=== PATIENT | female | born 1970 | race Caucasian/White ===

== ENCOUNTER 2023-03-07 07:01 | Outpatient (OUT) | payer OTHER, SELFPAY ==
[2023-03-07 07:27] LABS: Basophils Percent Auto 0.4 % (0.2-2.0); Eosinophils Absolute Auto 0.1 10^3/uL (0.0-0.7); Eosinophils Percent Auto 1.6 % (0.9-7.0); Hematocrit 48.1 % (36.0-48.0); Hemoglobin 15.8 g/dL (12.0-16.0); Immature Granulocytes Abs Auto 0.03 10^3/uL (0.00-0.03); Immature Granulocytes Pct Auto 0.4 % (0.0-0.5); Lymphocytes Absolute Auto 2.6 10^3/uL (1.2-3.8); Lymphocytes Percent Auto 34.9 % (20.5-60.0); Mean Corpuscular HGB Conc 32.8 g/dL (29.9-35.2); Mean Corpuscular Hemoglobin 29.1 pg (26.7-34.0); Mean Corpuscular Volume 88.6 fL (81.0-99.0); Mean Platelet Volume 9.3 fL (9.5-13.5); Monocytes Absolute Auto 0.4 10^3/uL (0.3-0.8); Monocytes Percent Auto 5.5 % (1.7-12.0); Neutrophils Absolute Auto 4.2 10^3/uL (1.4-6.5); Neutrophils Percent Auto 57.2 % (43.0-75.0); Platelet Count 294 10^3/uL (150-450); Red Blood Count 5.43 10^6/uL (4.20-5.40); Red Cell Distribution Width 13.1 % (11.0-15.0); White Blood Count 7.4 10^3/uL (4.0-11.0)
[2023-03-07 08:08] LABS: Percent Iron Saturation 23.4 %
[2023-03-07 09:13] LABS: Alanine Aminotransferase 38 U/L (14-59); Albumin Globulin Ratio 0.9; Albumin Level 3.6 g/dL (3.4-5.0); Alkaline Phosphatase 102 U/L (46-116); Anion Gap 13.4; Aspartate Amino Transferase 19 U/L (15-37); BUN Creatinine Ratio 13.7; Bilirubin Total 0.3 mg/dL (0.2-1.0); Carbon Dioxide 28.2 mmol/L (21.0-32.0); Chloride 98 mmol/L (98-107); Chol HDL Ratio 7.2; Cholesterol 272 mg/dL (<=200); Estimated GFR (African America 59 (>=60); Estimated GFR (Non-African Ame 48 (>=60); Globulin 4.1 g/dL; Glucose 100 mg/dL (74-106); HDL Cholesterol 38 mg/dL (40-60); Potassium 3.6 mmol/L (3.5-5.1); Sodium 136 mmol/L (136-145); TSH W/ REFLEX FT4 2.096 (0.358-3.740); Total Protein 7.7 g/dL (6.4-8.2); Triglycerides 295 mg/dL (<=150)
== END 2023-03-07 07:02 | disposition home or self-care (01) ==
PROVIDERS: Visit Provider Nurse Practitioner Family
DX: E61.1 Iron deficiency (principal); I10 Essential (primary) hypertension; E89.0 Postprocedural hypothyroidism
CPT/HCPCS: 36415; 80053; 80061; 82728; 83540; 83550; 84443; 85025

== ENCOUNTER 2023-04-23 09:00 | Emergency (ER) | payer OTHER, SELFPAY ==
[2023-04-23] VITALS (10 sets, daily range): BP systolic 150; BP diastolic 86; PULSE 70–100; RESP 15–21; TEMP 36.6; O2SAT 93–96; BMI 43.6
--- OUTSIDE RECORDS SUMMARY | 2023-04-23 09:19 | XMS_ITS | CCD ---
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 Name Role Phone House Sr., Maury Snell Primary Care Provider Himanshu, DO Mendiola Primary Care Provider DO Chris Borden Attending Provider CANTRALL, DR MENDIOLA Admitting Unavailable HOUSE, DR MENDIOLA Attending Unavailable HOUSE, DR MENDIOLA Primary Care Unavailable HOUSE, DR MENDIOLA Consulting Unavailable LE, ABNER Consulting Unavailable PRINTY, DR PATEL Admitting Unavailable PRINTY, DR PATEL Attending Unavailable HOUSE, DR MENDIOLA Primary Care Unavailable PRINTY, DR PATEL Consulting Unavailable HOUSE, DR MENDIOLA Admitting Unavailable HOUSE, DR MENDIOLA Attending Unavailable HOUSE, DR MENDIOLA Primary Care Unavailable HOUSE, DR MENDIOLA Consulting Unavailable HOUSE, DR MENDIOLA Admitting Unavailable HOUSE, DR MENDIOLA Attending Unavailable HOUSE, DR MENDIOLA Primary Care Unavailable HOUSE, DR MENDIOLA Consulting Unavailable House Sr., Maury Josette Primary Care Provider HOUSE SR, MAURY JOSETTE Primary Care Unavai labFATOU Justice Referring Unavailable YOSEF ZHANG Referring Unavailable HOUSE SR, MAURY [facility] Primary Care Unavai lable CHIARA DUTTONY M Referring Unavailable HOUSE SR, MAURY [facility] Primary Care Unavai lable HOUSE SR, MAURY [facility] Primary Care Unavai lable CHIARA DUTTONY M Referring Unavailable CHIARA DUTTONY M Referring Unavailable HOUSE SR, MAURY [facility] Primary Care Unavai labCHIARA JusticeY M Referring Unavailable HOUSE SR, MAURY [facility] Unavai lable HOUSE SR, MAURY [facility] Primary [facility] Unavai lable House Sr., Maury [facility] Prov ider Sylvia Chavez Unavailable [phone] Zoila Grant Unavailable Luisa Fabian Unavailable Sylvia Chavez Attending Unavailable Sylvia Chavez Primary Care Unavailable Sylvia Chavez Admitting Unavailable Allergies Allergy Classification Reported Allergen(s) Allergy Type Date of Onset Reaction(s) Facility Opioid Agonists (1 source) Meperidine Drug Allergy 08-26-2020 Unknown [facility] (17 sources) Meperidine; Translations: [MEPERIDINE] Drug Allergy 08-26-2020 Unknown [facility] (10 sources) Clindamycin; Translations: [clindamycin] Drug Allergy 07-20-2021 Rash, Unknown [facility] (1 source) Meperidine Drug Allergy [facility] (1 source) Meperidine Drug Allergy 07-20-2021 [facility] Medications Current Medications Medication Drug Class(es) Dates Sig (Normalized) Sig (Original) 0.5 ML semaglutide 0.5 MG/ML Auto-Injector [Wegovy] (3 sources) Start: 03-11-2023 Wegovy 0.25 MG/0.5ML 0.25mg once weekly for weeks 1-4 Subcutaneous once weekly for 28 days Aware medication is backordered at this time. Assessing insurance coverage. Mar, Active aspirin 81 mg oral tablet (16 sources) Platelet Aggregation Inhibitor, Nonsteroidal Anti-inflammatory Drug Start: 07-20-2021 take 81 mg by mouth once daily in the morning Aspirin Active 81 MG PO Every morning July 20, 2021 3:44pm take 1 tablet by denise th every twenty-four hours Aspirin 81 MG 1 tablet Orally Once a day Active take 1 tablet by mouth once raquel y aspirin, enteric coated (ASPIRIN, ENTERIC COATED) 81 mg EC tablet Take 81 mg by mouth once daily. 0 Active Comment on above: Take 81 mg by mouth once daily. 12 hr buPROPion hydrochloride 90 mg / naltrexone hydrochloride 8 mg extended release oral tablet (1 source) Opioid Antagonist, Aminoketone Start: 023 take 1 tablet by mouth every twenty-four hours Contrave 8-90 MG 1 tablet in the morning Orally Once a day for 30 days If cost is >$100 out of pocket please do not fill. Mar, Active famotidine 20 mg oral tablet (1 source) Histamine-2 Receptor Antagonist Start: take 20 mg by mouth once daily in the morning Famotidine Active 20 MG PO Every morning July 20, 2021 3:44pm fenofibrate 54 mg oral tablet (5 sources) Peroxisome Proliferator Receptor alpha Agonist Start: 023 take 1 tablet by mouth every twenty-four hours Fenofibrate 54 MG 1 tablet with food Orally Once a day for 90 days Mar, Active hydroCHLOROthiazide 25 mg / lisinopril 20 mg oral tablet (16 sources) Thiazide Diuretic, Angiotensin Converting Enzyme Inhibitor Start: 022 take 1 tablet by mouth once daily in the morning Lisinopril-Hydroch lorothiazide Active 1 TAB PO Every morning July 20, 2021 3:44pm Start: 08-30-2020 lisinopril-hyd roCHLOROthiazide (PRINZIDE, ZESTORETIC) 20-25 mg per tablet 24 hr nicotine 0.875 mg/hr transdermal system (8 sources) Cholinergic Nicotinic Agonist Start: 02-27-2023 Nicotine Step 1 21 MG/24HR 1 patch to skin Transdermal Once a day for 30 days Feb, Active ozempic (0.25 or 0.5 mg/dose) 2 mg/3ml solution pen-injector (1 source) Start: 03-13-2023 Ozempic (0.25 or 0.5 MG/DOSE) 2 MG/3ML 0.25mg once weekly for 4 weeks, then 0.5mg once weekly for 4 weeks Subcutaneous Once Weekly for 28 days Mar, Active perflutren lipid microspheres 1.3 mL in NaCl (PF) 0.9% 10 mL injection (DEFINITY) (1 source) Start: 09-01-2020 End: 12-01-2021 perflutren lipid microspheres 1.3 mL in NaCl (PF) 0.9% 10 mL injection (DEFINITY) 125 ml sodium chloride 9 mg/ml prefilled syringe (1 source) Start: 09-01-2020 End: 12-01-2021 sodium chloride 0.9 % (flush) 10 mL (BD POSIFLUSH) jozef 0.25 mg/0.5ml solution auto-injector (1 source) Start: 03-11-2023 Wegovy 0.25 MG /0.5ML 0.25mg once weekly for weeks 1-4 Subcutaneous once weekly for 28 days Aware medication is backordered at this time. Assessing insurance coverage. Mar, Active Completed/Discontinued Medications Medication Drug Class(es) Dates Sig (Normalized) Sig (Original) norethindrone-eth estradiol 1-5 mg-mcg tablet (8 sources) Estrogen take 1 tablet by denise th every twenty-four hours Norethindrone-Eth Estradiol 1-5 MG-MCG 1 tablet Orally Once a day (Femhrt 04/12) Not-Taking/PRN take 1 tablet by denise th every twenty-four hours Norethindrone-Eth Estradiol 1-5 MG-MCG 1 tablet Orally Once a day (Femt 04/12) Not-Taking omeprazole 20 mg delayed release oral capsule (12 sources) Proton Pump Inhibitor Start: 12-20-2020 take 1 capsule by mouth twice daily before mealtime omeprazole (PRILOSEC) 20 mg capsule Take 1 capsule by mouth twice daily before meals. 60 capsule 0 12/20/2020 Active take 1 capsule by mo uth every twenty-four hours Omeprazole 20 MG 1 capsule Orally Once a day for 90 days Active Comment on above: Take 1 capsule by mo uth twice daily before meals. Problems Active Problems Problem Classification Problem Date Documented Da te Episodic/Chronic Abdominal pain (16 sources) Abdominal pain; Translations: [Unspecified abdominal pain] Episodic Anxiety disorders (5 sources) Anxiety; Translations: [Anxiety disorder, unspecified] Chronic Chronic kidney disease (5 sources) Chronic kidney disease stage 3A ; Translations: [Stage 3a chronic kidney disease] Chronic Coma; stupor; and brain damage (5 sources) Excessive daytime sleepiness - normal night sleep; Translations: [Somnolence] Episodic Complications of surgical procedures or medical care (9 sources) History of subtotal thyroidectomy; Translations: [Postprocedural hypothyroidism] Chronic Deficiency and other anemia (12 sources) Iron deficiency anemia due to blood loss; Translations: [Iron deficiency anemia secondary to blood loss (chronic)] Onset: 08-31-2020 08-31-2020 Chronic Diabetes mellitus without complication (6 sources) Prediabetes; Translations: [Other abnormal glucose] Episodic Disorders of lipid metabolism (7 sources) Mixed hyperlipidemia; Translations: [Mixed hyperlipidemia] Chronic Diverticulosis and diverticulitis (8 sources) Diverticular disease of colon; Translations: [Diverticulosis of large intestine without perforation or abscess without bleeding] Chronic Esophageal disorders (8 sources) Gastro-esophageal reflux disease with esophagitis; Translations: [Gastroesophageal reflux disease with esophagitis without hemorrhage] Chronic Essential hypertension (9 sources) Essential hypertension; Translations: [Essential (primary) hypertension] Chronic Hemorrhoids (8 sources) Hemorrhoids; Translations: [Unspecified hemorrhoids] Episodic Malaise and fatigue (2 sources) Other fatigue; Translations: [Malaise and fatigue] Onset: 02-28-2022 02-14-2023 Episodic Menopausal disorders (4 sources) Postmenopausal bleeding; Translations: [POSTMENOPAUSAL BLEEDING] Onset: 07-27-2022 Chronic Mood disorders (5 sources) Major depressive disorder, single episode, unspecified; Translations: [Depression] Chronic Mood disorders (1 source) Mood disorders; Translations: [DEPRESSION UNSPECIFIED] Onset: 02-28-2022 Nausea and vomiting (16 sources) Nausea and vomiting; Translations: [Nausea with vomiting, unspecified] Episodic Nutritional deficiencies (1 source) Iron deficiency Episodic Other diseases of kidney and ureters (1 source) Disorder of kidney and ureter, unspecified Episodic Other gastrointestinal disorders (8 sources) Constipation; Translations: [Constipation, unspecified] Episodic Other gastrointestinal disorders (8 sources) Diarrhea; Translations: [Diarrhea, unspecified] Episodic Other gastrointestinal disorders (8 sources) Constipation alternates with diarrhea; Translations: [Other specified symptoms and signs involving the digestive system and abdomen] Episodic Other liver diseases (8 sources) Fatty (change of) liver, not elsewhere classified; Translations: [Nonalcoholic fatty liver disease] Chronic Other lower respiratory disease (1 source) Shortness of breath; Translations: [SHORTNESS OF BREATH] Onset: 07-30-2022 Episodic Other nutritional; endocrine; and metabolic disorders (16 sources) Body mass index 40+ - severely obese; Translations: [Morbid (severe) obesity due to excess calories] Chronic Other nutritional; endocrine; and metabolic disorders (1 source) Morbid (severe) obesity due to excess calories Chronic Other nutritional; endocrine; and metabolic disorders (1 source) Body mass index (BMI) 40.0-44.9, adult Chronic Other nutritional; endocrine; and metabolic disorders (6 sources) Obesity; Translations: [Obesity, unspecified] Chronic Other nutritional; endocrine; and metabolic disorders (1 source) Obesity, unspecified Chronic Residual codes; unclassified (4 sources) Sleep apnea; Translations: [Sleep apnea, unspecified] Chronic Residual codes; unclassified (1 source) Sleep apnea, unspecified Chronic Substance-related disorders (10 sources) Nicotine dependence; Translations: [Nicotine dependence, cigarettes, uncomplicated] Chronic Thyroid disorders (5 sources) Thyroid nodule; Translations: [Nontoxic single thyroid nodule] Chronic Unclassified (1 source) COUGH, UNSPECIFIED; Translations: [COUGH, UNSPECIFIED] Onset: 07-30-2022 Unclassified (2 sources) CONTACT W/AND (SUSP) EXPOS COVID-19; Translations: [CONTACT W/AND (SUSP) EXPOS COVID-19] Onset: 08-29-2021 Unclassified (1 source) Dietary counseling and surveillance; Translations: [Dietary counseling and surveillance] Onset: 03-11-2023 Viral infection (1 source) COVID-19; Translations: [COVID-19] Onset: 08-29-2021 Past or Other Problems Problem Classification Problem Date Documented Da te Episodic/Chronic Chronic kidney disease (1 source) Chronic kidney disease Deficiency and other anemia (4 sources) Anemia, unspecified; Translations: [ANEMIA UNSPECIFIED] Onset: 02-23-2022 Episodic Esophageal disorders (2 sources) Esophageal disorders Unclassified (1 source) CONTACT W/AND (SUSP) EXPOS COVID-19; Translations: [CONTACT W/AND (SUSP) EXPOS COVID-19] Onset: 08-24-2021 Results Test Name Value Interpretation Reference Range Facility A1C HEMOGLOBINon 03-11-2023 HbA1c (Bld) [Mass fraction] 6.2 % [facility] Other HbA1c (Bld) [Mass fraction]o n 03-11-2023 A1C HEMOGLOBIN [facility] Other Comprehensive metabolic 2000 panelon 09-27-2022 Albumin [Mass/Vol] 4.5 g/dL Normal 3.9-4.9 [facility] Comment on above: Order Comment: Speci men Type: BLOOD SPECIMEN Ordering Facility: [facility] Address: [address] [place] [id number] Performed By: #### 2 4323-8 #### [facility] CLIA [id number] [address] [place] [address] ALP [Catalytic activity/Vol] 106 U/L Normal 34-123 [facility] Comment on above: Order Comment: Speci men Type: BLOOD SPECIMEN Ordering Facility: [facility] Address: [address] [address] Performed By: #### 2 4323-8 #### [facility] CLIA [id number] [address] [place] [address] ALT [Catalytic activity/Vol] 25 U/L Normal 7-38 [facility] Comment on above: Order Comment: Speci men Type: BLOOD SPECIMEN Ordering Facility: [facility] Address: [address] [place] [address] Performed By: #### 2 4323-8 #### [facility] CLIA [id number] [address] [place] [address] Anion gap [Moles/Vol] 9 mmol/L Normal 9-18 [facility] Comment on above: Order Comment: Speci men Type: BLOOD SPECIMEN Ordering Facility: [facility] Address: [address] [place] [address] Performed By: #### 2 4323-8 #### [facility] CLIA [id number] [address] [place] [address] AST [Catalytic activity/Vol] 19 U/L Normal 13-35 [facility] Comment on above: Order Comment: Speci men Type: BLOOD SPECIMEN Ordering Facility: [facility] Address: [address] [place] [address] Performed By: #### 2 4323-8 #### [facility] CLIA [id number] [address] [place] [address] Bilirubin [Mass/Vol] mg/dL Low 0.2-1.3 [facility] Comment on above: Order Comment: Speci men Type: BLOOD SPECIMEN Ordering Facility: [facility] Address: [address] [address] Performed By: #### 2 4323-8 #### [facility] CLIA [id number] [address] [place] [address] Calcium [Mass/Vol] 9.8 mg/dL Normal 8.5-10.2 [facility] Comment on above: Order Comment: Speci men Type: BLOOD SPECIMEN Ordering Facility: [facility] Address: [address] [address] Performed By: #### 2 4323-8 #### [facility] CLIA [id number] [address] [place] [address] Chloride [Moles/Vol] 99 mmol/L Normal 97-105 [facility] Comment on above: Order Comment: Speci men Type: BLOOD SPECIMEN Ordering Facility: [facility] Address: [address] [address] Performed By: #### 2 4323-8 #### [facility] CLIA [id number] [address] [place] [address] CO2 [Moles/Vol] 28 mmol/L Normal 22-30 [facility] Comment on above: Order Comment: Speci men Type: BLOOD SPECIMEN Ordering Facility: [facility] Address: [address] [address] Performed By: #### 2 4323-8 #### [facility] CLIA [id number] [address] [place] [address] Creatinine [Mass/Vol] 1.09 mg/dL High 0.58-0.96 [facility] Comment on above: Order Comment: Speci men Type: BLOOD SPECIMEN Ordering Facility: [facility] Address: [address] [address] Performed By: #### 2 4323-8 #### [facility] CLIA [id number] [address] [place] [address] ESTIMATED GLOMERULAR FILTRATION RATE 61 mL/min/1.73m??? Normal >=60 [facility] Comment on above: Order Comment: Sanjana schultz Type: BLOOD SPECIMEN Ordering Facility: [facility] Address: [address] [phone] Result Comment: Yeimy mated Glomerular Filtration Rate (eGFR) is calculated using the 2020 CKD-EPI creatinine equation. This equation utilizes serum creatinine, sex, and age as parameters. The creatinine assay has traceable calibration to isotope dilution-mass spectrometry. Refer to KDIGO guidelines for clinical interpretation. In patients with unstable renal function, e.g. those with acute kidney injury, the eGFR may not accurately reflect actual GFR. Performed By: #### 2 4323-8 #### [facility] CLIA [id number] [address] [place] [address] Glucose [Mass/Vol] 128 mg/dL High 74-99 [facility] Comment on above: Order Comment: Sanjana schultz Type: BLOOD SPECIMEN Ordering Facility: [facility] Address: [address] Result Comment: The [place] Diabetes Association (ADA) provides guidance for cutoff values for fasting glucose and random glucose. The ADA defines fasting as no caloric intake for at least 8 hours. Fasting plasma glucose results between 100 to 125 mg/dL indicate increased risk for diabetes (prediabetes). Fasting plasma glucose results greater than or equal to 126 mg/dL meet the criteria for diagnosis of diabetes. In the absence of unequivocal hyperglycemia, results should be confirmed by repeat testing. In a patient with classic symptoms of hyperglycemia or hyperglycemic crisis, random plasma glucose results greater than or equal to 200 mg/dL meet the criteria for diagnosis of diabetes. Reference: Standards of Medical Care in Diabetes 2016, [place] Diabetes Association. Diabetes Care. 2016.39(Suppl 1). Performed By: #### 2 4323-8 #### [facility] CLIA [id number] [address] [place] [address] Potassium [Moles/Vol] 3.9 mmol/L Normal 3.7-5.1 [facility] Comment on above: Order Comment: Sanjana schultz Type: BLOOD SPECIMEN Ordering Facility: [facility] Address: [address] [phone] Performed By: #### 2 4323-8 #### [facility] CLIA [id number] [address] [place] [address] Protein [Mass/Vol] 7.4 g/dL Normal 6.3-8.0 [facility] Comment on above: Order Comment: Speci men Type: BLOOD SPECIMEN Ordering Facility: [facility] Address: [address] [place] [address] Performed By: #### 2 4323-8 #### [facility] CLIA [id number] [address] [place] [address] Sodium [Moles/Vol] 136 mmol/L Normal 136-144 [facility] Comment on above: Order Comment: Speci men Type: BLOOD SPECIMEN Ordering Facility: [facility] Address: [address] [place] [address] Performed By: #### 2 4323-8 #### [facility] CLIA [id number] [address] [place] [address] Urea nitrogen [Mass/Vol] 20 mg/dL Normal 7-21 [facility] Comment on above: Order Comment: Speci men Type: BLOOD SPECIMEN Ordering Facility: [facility] Address: [address] [place] [address] Performed By: #### 2 4323-8 #### [facility] CLIA [id number] [address] [place] [address] [address] MARIA FERNANDA VALLECILLO ([id number]) 1970 F Date Time Provider Department 09/24/22 CASH IVORY During your visit today, we recorded the following information about you: YASIR Gonzales 09/24/2022 4:17 PM Signed Patient appears on the [facility] First Time Treatment List for a non-oncology treatment. No psychosocial assessment is indicated. ROLDAN Gonzales-Lisa Allergies As of Date: 09/24/2022 Noted Allergy Reaction DEMEROL (MEPERIDINE) 08/26/2020 16 - Unknown Date Reviewed: 09/18/2022 Reviewed by: Fatou Dutton PA-C - Fully Assessed Prescriptions as of 09/24/2022 - omeprazole (PRILOSEC) 20 mg capsule Take 1 capsule by mouth twice daily before meals. - aspirin, enteric coated (ASPIRIN, ENTERIC COATED) 81 mg EC tablet Take 81 mg by mouth once daily. - lisinopril-hydroCHLO ROthiazide (PRINZIDE, ZESTORETIC) 20-25 mg per tablet Problem List As Of Date 09/24/2022 Noted Resolved Iron deficiency anemia due to chronic blood los*08/31/2020 Encounter Status:Closed by [facility]ASH [facility] MARIA FERNANDA VALLECILLO ([id number]) 1970 F Date Time Provider Department 09/14/22 SUMMER NUGENT During your visit today, we recorded the following information about you: Summer Nugent RN 09/14/2022 4:24 PM Signed Pt is scheduled for [facility] on Saturday. Dr Zhang had originally recommended Monoferric, but this had to be changed due to pt's insurance. Pt reports that she spoke w/ her insurance company today. Per pt, she was informed that the Monoferric would be approved as long as our office submitted a prior authorization. Spoke w/ Nicole in pharmacy who states that the pt's insurance requires her to have tried and failed other iron formulations before they will approve monoferric. Nicole states that we can submit the prior authorization, but there is still no guarantee that they will approve it. In addition, we will not have determination prior to pt's appointment on Saturday. Pt notified of the above. Informed pt that we could submit the P.A., but we would have to delay Saturday's treatment. Side effects of Venofer reviewed w/ pt. Pt verbalizes understanding and states that she will keep the appointment as is. Does not wish to proceed w/ P.A. at this time. Summer Nugent RN Allergies As of Date: 09/14/2022 Noted Allergy Reaction DEMEROL (MEPERIDINE) 08/26/2020 16 - Unknown Date Reviewed: 09/12/2022 Reviewed by: Fatou Dutton PA-C - Fully Assessed Reason for Visit: Insurance Auth - Iron [Other] Prescriptions as of 09/14/2022 - omeprazole (PRILOSEC) 20 mg capsule Take 1 capsule by mouth twice daily before meals. - aspirin, enteric coated (ASPIRIN, ENTERIC COATED) 81 mg EC tablet Take 81 mg by mouth once daily. - lisinopril-hydroCHLO ROthiazide (PRINZIDE, ZESTORETIC) 20-25 mg per tablet Problem List As Of Date 09/14/2022 Noted Resolved Iron deficiency anemia due to chronic blood los*08/31/2020 Encounter Status:Closed by SUMMER NUGENT on 09/14/22 Normal [facility] CBC W Auto Differential pane l (Bld)on 09-10-2022 Basophils (Bld) [#/Vol] 0.04 10*3/uL Normal <0.11 [facility] Comment on above: Order Comment: Speci men Type: BLOOD SPECIMEN Ordering Facility: [facility] Address: [address] [place] [phone] Performed By: #### 1 4196-0, 27911-4 #### [facility] CLIA [id number] [address] [place] [address] Basophils/100 WBC (Bld) 0.5 % Normal [facility] Comment on above: Order Comment: Speci men Type: BLOOD SPECIMEN Ordering Facility: [facility] Address: [address] [address] Performed By: #### 1 4196-0, 55724-4 #### [facility] CLIA [id number] [address] [place] [address] Differential cell count method Nom (Bld) Auto Normal [facility] Comment on above: Order Comment: Speci men Type: BLOOD SPECIMEN Ordering Facility: [facility] Address: [address] [address] Performed By: #### 1 4196-0, 72673-8 #### [facility] CLIA [id number] [address] [place] [address] Eosinophils (Bld) [#/Vol] 0.20 10*3/uL Normal <0.46 [facility] [facility] Comment on above: Order Comment: Speci men Type: BLOOD SPECIMEN Ordering Facility: [facility] Address: [address] [address] Performed By: #### 1 4196-0, 92940-2 #### [facility] CLIA [id number] [address] [place] [address] 22033 Eosinophils/100 WBC (Bld) 2.7 % Normal [facility] Comment on above: Order Comment: Speci men Type: BLOOD SPECIMEN Ordering Facility: [facility] Address: [address] [address] Performed By: #### 1 4196-0, 37562-7 #### [facility] CLIA [id number] [address] [place] [address] 33148 Erythrocyte distribution width (RBC) [Ratio] 14.6 % Normal 11.5-15.0 [facility] Comment on above: Order Comment: Speci men Type: BLOOD SPECIMEN Ordering Facility: [facility] Address: [address] [address] Performed By: #### 1 4196-0, 66606-3 #### [facility] CLIA [id number] [address] [place] [address] 56231 Hematocrit (Bld) [Volume fraction] 45.8 % Normal 36.0-46.0 [facility] Comment on above: Order Comment: Speci men Type: BLOOD SPECIMEN Ordering Facility: [facility] Address: [address] [place] [address] Performed By: #### 1 4196-0, 84733-9 #### [facility] CLIA [id number] [address] [place] [address] 51114 Hemoglobin (Bld) [Mass/Vol] 15.2 g/dL Normal 11.5-15.5 [facility] Comment on above: Order Comment: Speci men Type: BLOOD SPECIMEN Ordering Facility: [facility] Address: [address] [place] [address] Performed By: #### 1 4196-0, 53624-5 #### [facility] CLIA [id number] [address] [place] [address] 78200 Immature granulocytes (Bld) [#/Vol] 0.03 10*3/uL Normal <0.10 [facility] Comment on above: Order Comment: Speci men Type: BLOOD SPECIMEN Ordering Facility: [facility] Address: [address] [place] [address] Performed By: #### 1 4196-0, 95535-1 #### [facility] CLIA [id number] [address] [place] [address] 66470 Immature granulocytes/100 WBC (Bld) 0.4 % Normal [facility] Comment on above: Order Comment: Speci men Type: BLOOD SPECIMEN Ordering Facility: [facility] Address: [address] [place] [address] Performed By: #### 1 4196-0, 19204-6 #### [facility] CLIA [id number] [address] [place] [address] 68222 Lymphocytes (Bld) [#/Vol] 2.66 10*3/uL Normal 1.00-4.00 [facility] Comment on above: Order Comment: Speci men Type: BLOOD SPECIMEN Ordering Facility: [facility] Address: [address] [address] Performed By: #### 1 4196-0, 32202-4 #### [facility] CLIA [id number] [address] [place] [address] 33568 Lymphocytes/100 WBC (Bld) 35.5 % Normal [facility] Comment on above: Order Comment: Speci men Type: BLOOD SPECIMEN Ordering Facility: [facility] Address: [address] [address] Performed By: #### 1 4196-0, 17814-8 #### [facility] CLIA [id number] [address] [place] [address] 09008 MCH (RBC) [Entitic mass] 28.3 pg Normal 26.0-34.0 [facility] Comment on above: Order Comment: Speci men Type: BLOOD SPECIMEN Ordering Facility: [facility] Address: [address] [address] Performed By: #### 1 4196-0, 00677-1 #### [facility] CLIA [id number] [address] [place] [address] 23773 MCHC (RBC) [Mass/Vol] 33.2 g/dL Normal 30.5-36.0 [facility] Comment on above: Order Comment: Speci men Type: BLOOD SPECIMEN Ordering Facility: [facility] Address: [address] [address] Performed By: #### 1 4196-0, 28349-5 #### [facility] CLIA [id number] [address] [place] [address] 85190 MCV (RBC) [Entitic vol] 85.3 fL Normal 80.0-100.0 [facility] Comment on above: Order Comment: Speci men Type: BLOOD SPECIMEN Ordering Facility: [facility] Address: [address] [address] Performed By: #### 1 4196-0, 10809-7 #### [facility] CLIA [id number] [address] [place] [address] Monocytes (Bld) [#/Vol] 0.40 10*3/uL Normal <0.87 [facility] Comment on above: Order Comment: Speci men Type: BLOOD SPECIMEN Ordering Facility: [facility] Address: [address] [address] Performed By: #### 1 4196-0, 96387-5 #### [facility] CLIA [id number] [address] [place] [address] 38558 Monocytes/100 WBC (Bld) 5.3 % Normal [facility] Comment on above: Order Comment: Speci men Type: BLOOD SPECIMEN Ordering Facility: [facility] Address: [address] [place] [address] Performed By: #### 1 4196-0, 34505-7 #### [facility] CLIA [id number] [address] [place] [address] 14753 Neutrophils (Bld) [#/Vol] 4.17 10*3/uL Normal 1.45-7.50 [facility] Comment on above: Order Comment: Speci men Type: BLOOD SPECIMEN Ordering Facility: [facility] Address: [address] [place] [address] Performed By: #### 1 4196-0, 26456-4 #### [facility] CLIA [id number] [address] [place] [address] 47766 Neutrophils/100 WBC (Bld) 55.6 % Normal [facility] Comment on above: Order Comment: Speci men Type: BLOOD SPECIMEN Ordering Facility: [facility] Address: [address] [place] [address] Performed By: #### 1 4196-0, 30947-8 #### [facility] CLIA [id number] [address] [place] [address] 66739 Nucleated RBC (Bld) [#/Vol] 10*3/uL Normal <0.01 [facility] Comment on above: Order Comment: Speci men Type: BLOOD SPECIMEN Ordering Facility: [facility] Address: [address] [address] Performed By: #### 1 4196-0, 02592-3 #### [facility] CLIA [id number] [address] [place] [address] 34277 Nucleated RBC/100 WBC (Bld) [Ratio] 0.0 /100 WBC Normal [facility] Comment on above: Order Comment: Speci men Type: BLOOD SPECIMEN Ordering Facility: [facility] Address: [address] [address] Performed By: #### 1 4196-0, 65834-1 #### [facility] CLIA [id number] [address] [place] [address] 45699 Platelet mean volume (Bld) [Entitic vol] 9.1 fL Normal 9.0-12.7 [facility] Comment on above: Order Comment: Speci men Type: BLOOD SPECIMEN Ordering Facility: [facility] Address: [address] [address] Performed By: #### 1 4196-0, 33012-6 #### [facility] CLIA [id number] [address] [place] [address] 88503 Platelets (Bld) [#/Vol] 293 10*3/uL Normal 150-400 [facility] Comment on above: Order Comment: Speci men Type: BLOOD SPECIMEN Ordering Facility: [facility] Address: [address] [address] Performed By: #### 1 4196-0, 81248-7 #### [facility] CLIA [id number] [address] [place] [address] 22106 RBC (Bld) [#/Vol] 5.37 10*6/uL High 3.90-5.[address] [facility] Comment on above: Order Comment: Speci men Type: BLOOD SPECIMEN Ordering Facility: [facility] Address: [address] [address] Performed By: #### 1 4196-0, 87491-5 #### [facility] CLIA [id number] [address] [place] [address] 99083 WBC (Bld) [#/Vol] 7.50 10*3/uL Normal 3.70-11.[address] [facility] Comment on above: Order Comment: Speci men Type: BLOOD SPECIMEN Ordering Facility: [facility] Address: [address] [place] [address] Performed By: #### 1 4196-0, 70269-5 #### [facility] CLIA [id number] [address] [place] [address] 20163 Ferritin SerPl-ncon 2022 Ferritin [Mass/Vol] 30.8 ng/mL Normal 14.7-205.[address] [facility] Comment on above: Order Comment: Speci men Type: BLOOD SPECIMEN Ordering Facility: [facility] Address: [address] [place] [address] Performed By: #### 5 0190-8, 2275-4 #### [facility] CLIA [id number] [address] [place] [address] [place] Iron and Iron binding capaci ty panelon 09-10-2022 Iron [Mass/Vol] 40 ug/dL Low 41-186 [facility] Comment on above: Order Comment: Speci men Type: BLOOD SPECIMEN Ordering Facility: [facility] Address: [address] [place], [place] [address] Performed By: #### 5 0190-8, 4 #### [facility] CLIA [id number] [address] [place] [address] [place] Iron binding capacity [Mass/Vol] 328 ug/dL Normal 232-386 [facility] Comment on above: Order Comment: Speci men Type: BLOOD SPECIMEN Ordering Facility: [facility] Address: [address] [place] [address] Performed By: #### 5 0190-8, 2275- #### [facility] CLIA [id number] [address] [place] [address] [place] Iron/TIBC [Molar ratio] 12.2 % Low 15.0-57.0 [facility] Comment on above: Order Comment: Speci men Type: BLOOD SPECIMEN Ordering Facility: [facility] Address: [address] [place] [address] Performed By: #### 5 0190-8, 2276-4 #### [facility] CLIA [id number] [address] [place] [address] [place] Retics #on 09-10-2022 Reticulocytes (Bld) [#/Vol] 0.10241 10*3/uL High 0.018-0.100 [facility] Comment on above: Order Comment: Speci men Type: BLOOD SPECIMEN Ordering Facility: [facility] Address: [address] [place] [address] Performed By: #### 1 4196-0, 04398-3 #### [facility] CLIA [id number] [address] [place] [address] 46590 Reticulocytes (Bld) [#/Vol]o n 09-10-2022 Reticulocytes/100 RBC (Bld) 2.2 % High 0.4-2.0 [facility] Comment on above: Order Comment: Speci men Type: BLOOD SPECIMEN Ordering Facility: [facility] Address: [address] [place] [address] Performed By: #### 1 4196-0, 88752-9 #### [facility] CLIA [id number] [address] [place] [address] 50317 FSHon 07-28-2022 FSH 25.2 mIU/mL Normal [facility] Comment on above: Result Comment: Adul t Female: Follicular phase 3.5 - 12.5 Ovulation phase 4.7 - 21.5 Luteal phase 1.7 - 7.7 Postmenopausal 25.8 - 134.8 Performed By: #### L [facility] #### [facility] [address] [place], [place] [address] Dr. Sarah Philippe XR CHEST 2 Von 07-27-2022 XR CHEST 2 V EXAM: XR CHEST 2 V HISTORY: Cough COMPARISON: None. TECHNIQUE: PA and lateral views of the chest. FINDINGS: The cardiomediastinal silhouette is normal. No focal consolidation is identified. There is no pneumothorax. No pleural effusion is noted. The osseous structures are intact. IMPRESSION: No acute cardiopulmonary process. Electronically authenticated by: ABNER BERNABE Date: 2022-07-27 10:29 Normal [facility] CBC W Auto Differential pane l (Bld)on 03-14-2022 Basophils (Bld) [#/Vol] 0.05 10*3/uL Normal <0.11 [facility] Comment on above: Order Comment: Speci men Type: BLOOD SPECIMEN Ordering Facility: [facility] Address: [address] [place] [address] Performed By: #### 5 7021-8 #### [facility] CLIA [id number] [address] [place] [address] 20703 Basophils/100 WBC (Bld) 0.6 % Normal [facility] Comment on above: Order Comment: Speci men Type: BLOOD SPECIMEN Ordering Facility: [facility] Address: [address] [place] [address] Performed By: #### 5 7021-8 #### [facility] CLIA [id number] [address] [place] [address] 73700 Differential cell count method Nom (Bld) Auto Normal [facility] Comment on above: Order Comment: Speci men Type: BLOOD SPECIMEN Ordering Facility: [facility] Address: [address] [place] [address] Performed By: #### 5 7021-8 #### [facility] CLIA [id number] [address] [place] [address] 97817 Eosinophils (Bld) [#/Vol] 0.22 10*3/uL Normal <0.46 [facility] Comment on above: Order Comment: Speci men Type: BLOOD SPECIMEN Ordering Facility: [facility] Address: [address] [address] Performed By: #### 5 7021-8 #### [facility] CLIA [id number] [address] [place] [address] 39229 Eosinophils/100 WBC (Bld) 2.4 % Normal [facility] Comment on above: Order Comment: Speci men Type: BLOOD SPECIMEN Ordering Facility: [facility] Address: [address] [address] Performed By: #### 5 7021-8 #### [facility] CLIA [id number] [address] [place] [address] 76216 Erythrocyte distribution width (RBC) [Ratio] 14.0 % Normal 11.5-15.0 [facility] Comment on above: Order Comment: Speci men Type: BLOOD SPECIMEN Ordering Facility: [facility] Address: [address] [address] Performed By: #### 5 7021-8 #### [facility] CLIA [id number] [address] [place] [address] 26142 Hematocrit (Bld) [Volume fraction] 43.4 % Normal 36.0-46.0 [facility] Comment on above: Order Comment: Speci men Type: BLOOD SPECIMEN Ordering Facility: [facility] Address: [address] [address] Performed By: #### 5 7021-8 #### [facility] CLIA [id number] [address] [place] [address] 76261 Hemoglobin (Bld) [Mass/Vol] 14.6 g/dL Normal 11.5-15.5 [facility] Comment on above: Order Comment: Speci men Type: BLOOD SPECIMEN Ordering Facility: [facility] Address: [address] [address] Performed By: #### 5 7021-8 #### [facility] CLIA [id number] [address] [place] [address] 85219 Immature granulocytes (Bld) [#/Vol] 0.03 10*3/uL Normal <0.10 [facility] Comment on above: Order Comment: Speci men Type: BLOOD SPECIMEN Ordering Facility: [facility] Address: [address] [place] [address] Performed By: #### 5 7021-8 #### [facility] CLIA [id number] [address] [place] [address] 90147 Immature granulocytes/100 WBC (Bld) 0.3 % Normal [facility] Comment on above: Order Comment: Speci men Type: BLOOD SPECIMEN Ordering Facility: [facility] Address: [address] [address] Performed By: #### 5 7021-8 #### [facility] CLIA [id number] [address] [place] [address] 53139 Lymphocytes (Bld) [#/Vol] 3.15 10*3/uL Normal 1.00-4.00 [facility] Comment on above: Order Comment: Speci men Type: BLOOD SPECIMEN Ordering Facility: [facility] Address: [address] [address] Performed By: #### 5 7021-8 #### [facility] CLIA [id number] [address] [place] [address] 73830 Lymphocytes/100 WBC (Bld) 34.7 % Normal [facility] Comment on above: Order Comment: Speci men Type: BLOOD SPECIMEN Ordering Facility: [facility] Address: [address] [address] Performed By: #### 5 7021-8 #### [facility] CLIA [id number] [address] [place] [address] 35501 MCH (RBC) [Entitic mass] 29.2 pg Normal 26.0-34.0 [facility] Comment on above: Order Comment: Speci men Type: BLOOD SPECIMEN Ordering Facility: [facility] Address: [address] [place] [address] Performed By: #### 5 7021-8 #### [facility] CLIA [id number] [address] [place] [address] 36193 MCHC (RBC) [Mass/Vol] 33.6 g/dL Normal 30.5-36.0 [facility] Comment on above: Order Comment: Speci men Type: BLOOD SPECIMEN Ordering Facility: [facility] Address: [address] [place] [address] Performed By: #### 5 7021-8 #### [facility] CLIA [id number] [address] [place] [address] 08698 MCV (RBC) [Entitic vol] 86.8 fL Normal 80.0-100.0 [facility] Comment on above: Order Comment: Speci men Type: BLOOD SPECIMEN Ordering Facility: [facility] Address: [address] [place] [address] Performed By: #### 5 7021-8 #### [facility] CLIA [id number] [address] [place] [address] 25785 Monocytes (Bld) [#/Vol] 0.48 10*3/uL Normal <0.87 [facility] Comment on above: Order Comment: Speci men Type: BLOOD SPECIMEN Ordering Facility: [facility] Address: [address] [place] [address] Performed By: #### 5 7021-8 #### [facility] CLIA [id number] [address] [place] [address] 90646 Monocytes/100 WBC (Bld) 5.3 % Normal [facility] Comment on above: Order Comment: Speci men Type: BLOOD SPECIMEN Ordering Facility: [facility] Address: [address] [place] [address] Performed By: #### 5 7021-8 #### [facility] CLIA [id number] [address] [place] [address] 81227 Neutrophils (Bld) [#/Vol] 5.14 10*3/uL Normal 1.45-7.50 [facility] Comment on above: Order Comment: Speci men Type: BLOOD SPECIMEN Ordering Facility: [facility] Address: [address] [address] Performed By: #### 5 7021-8 #### [facility] CLIA [id number] [address] [place] [address] 95150 Neutrophils/100 WBC (Bld) 56.7 % Normal [facility] Comment on above: Order Comment: Speci men Type: BLOOD SPECIMEN Ordering Facility: [facility] Address: [address] [address] Performed By: #### 5 7021-8 #### [facility] CLIA [id number] [address] [place] [address] 50285 Nucleated RBC (Bld) [#/Vol] 10*3/uL Normal <0.01 [facility] Comment on above: Order Comment: Speci men Type: BLOOD SPECIMEN Ordering Facility: [facility] Address: [address] [address] Performed By: #### 5 7021-8 #### [facility] CLIA [id number] [address] [place] [address] 33268 Nucleated RBC/100 WBC (Bld) [Ratio] 0.0 /100 WBC Normal [facility] Comment on above: Order Comment: Speci men Type: BLOOD SPECIMEN Ordering Facility: [facility] Address: [address] [address] Performed By: #### 5 7021-8 #### [facility] CLIA [id number] [address] [place] [address] 57280 Platelet mean volume (Bld) [Entitic vol] 9.4 fL Normal 9.0-12.7 [facility] Comment on above: Order Comment: Speci men Type: BLOOD SPECIMEN Ordering Facility: [facility] Address: [address] [address] Performed By: #### 5 7021-8 #### [facility] CLIA [id number] [address] [place] [address] 42024 Platelets (Bld) [#/Vol] 320 10*3/uL Normal 150-400 [facility] Comment on above: Order Comment: Speci men Type: BLOOD SPECIMEN Ordering Facility: [facility] Address: [address] [address] Performed By: #### 5 7021-8 #### [facility] CLIA [id number] [address] [place] [address] 74773 RBC (Bld) [#/Vol] 5.00 10*6/uL Normal 3.90-5.[address] [facility] Comment on above: Order Comment: Speci men Type: BLOOD SPECIMEN Ordering Facility: [facility] Address: [address] [address] Performed By: #### 5 7021-8 #### [facility] CLIA [id number] [address] [place] [address] 81071 WBC (Bld) [#/Vol] 9.07 10*3/uL Normal 3.70-11.[address] [facility] Comment on above: Order Comment: Speci men Type: BLOOD SPECIMEN Ordering Facility: [facility] Address: [address] [address] Performed By: #### 5 7021-8 #### [facility] CLIA [id number] [address] [place] [address] 08201 Comprehensive metabolic 2000 panelon 03-14-2022 Albumin [Mass/Vol] 4.1 g/dL Normal 3.9-4.9 [facility] Comment on above: Order Comment: Speci men Type: BLOOD SPECIMEN Ordering Facility: [facility] Address: [address] Performed By: #### 2 4323-8 #### [facility] CLIA [id number] [address] [place] [address] 24271 ALP [Catalytic activity/Vol] 107 U/L Normal 34-123 [facility] Comment on above: Order Comment: Speci men Type: BLOOD SPECIMEN Ordering Facility: [facility] Address: [address] Performed By: #### 2 4323-8 #### [facility] CLIA [id number] [address] [place] [address] ALT [Catalytic activity/Vol] 32 U/L Normal 7-38 [facility] Comment on above: Order Comment: Speci men Type: BLOOD SPECIMEN Ordering Facility: [facility] Address: [address] [address] Performed By: #### 2 4323-8 #### [facility] CLIA [id number] [address] [place] [address] Anion gap [Moles/Vol] 10 mmol/L Normal 9-18 [facility] Comment on above: Order Comment: Speci men Type: BLOOD SPECIMEN Ordering Facility: [facility] Address: [address] [address] Performed By: #### 2 4323-8 #### [facility] CLIA [id number] [address] [place] [address] AST [Catalytic activity/Vol] 28 U/L Normal 13-35 [facility] Comment on above: Order Comment: Speci men Type: BLOOD SPECIMEN Ordering Facility: [facility] Address: [address] [address] Performed By: #### 2 4323-8 #### [facility] CLIA [id number] [address] [place] [address] Bilirubin [Mass/Vol] mg/dL Low 0.2-1.3 [facility] Comment on above: Order Comment: Speci men Type: BLOOD SPECIMEN Ordering Facility: [facility] Address: [address] Performed By: #### 2 4323-8 #### [facility] CLIA [id number] [address] [place] [address] Calcium [Mass/Vol] 9.3 mg/dL Normal 8.5-10.2 [facility] Comment on above: Order Comment: Speci men Type: BLOOD SPECIMEN Ordering Facility: [facility] Address: [address] [address] Performed By: #### 2 4323-8 #### [facility] CLIA [id number] [address] [place] [address] Chloride [Moles/Vol] 104 mmol/L Normal 97-105 [facility] Comment on above: Order Comment: Speci men Type: BLOOD SPECIMEN Ordering Facility: [facility] Address: [address] [address] Performed By: #### 2 4323-8 #### [facility] CLIA [id number] [address] [place] [address] CO2 [Moles/Vol] 27 mmol/L Normal 22-30 [facility] Comment on above: Order Comment: Speci men Type: BLOOD SPECIMEN Ordering Facility: [facility] Address: [address] [place] [address] Performed By: #### 2 4323-8 #### [facility] CLIA [id number] [address] [place] [address] Creatinine [Mass/Vol] 0.93 mg/dL Normal 0.58-0.96 [facility] Comment on above: Order Comment: Speci men Type: BLOOD SPECIMEN Ordering Facility: [facility] Address: [address] [place] [address] Performed By: #### 2 4323-8 #### [facility] CLIA [id number] [address] [place] [address] ESTIMATED GLOMERULAR FILTRATION RATE 74 mL/min/1.73m??? Normal >=60 [facility] Comment on above: Order Comment: Speci men Type: BLOOD SPECIMEN Ordering Facility: [facility] Address: [address] [place] [address] Result Comment: Yeimy mated Glomerular Filtration Rate (eGFR) is calculated using the 2020 CKD-EPI creatinine equation. This equation utilizes serum creatinine, sex, and age as parameters. The creatinine assay has traceable calibration to isotope dilution-mass spectrometry. Refer to KDIGO guidelines for clinical interpretation. In patients with unstable renal function, e.g. those with acute kidney injury, the eGFR may not accurately reflect actual GFR. Performed By: #### 2 4323-8 #### [facility] CLIA [id number] [address] [place] [address] Glucose [Mass/Vol] 118 mg/dL High 74-99 [facility] Comment on above: Order Comment: Sanjana schultz Type: BLOOD SPECIMEN Ordering Facility: [facility] Address: [address] [address] Result Comment: The [place] Diabetes Association (ADA) provides guidance for cutoff values for fasting glucose and random glucose. The ADA defines fasting as no caloric intake for at least 8 hours. Fasting plasma glucose results between 100 to 125 mg/dL indicate increased risk for diabetes (prediabetes). Fasting plasma glucose results greater than or equal to 126 mg/dL meet the criteria for diagnosis of diabetes. In the absence of unequivocal hyperglycemia, results should be confirmed by repeat testing. In a patient with classic symptoms of hyperglycemia or hyperglycemic crisis, random plasma glucose results greater than or equal to 200 mg/dL meet the criteria for diagnosis of diabetes. Reference: Standards of Medical Care in Diabetes 2016, [place] Diabetes Association. Diabetes Care. 2016.39(Suppl 1). Performed By: #### 2 4323-8 #### [facility] CLIA [id number] [address] [place] [address] Potassium [Moles/Vol] 3.7 mmol/L Normal 3.7-5.1 [facility] Comment on above: Order Comment: Sanjana schultz Type: BLOOD SPECIMEN Ordering Facility: [facility] Address: [address] [id number] Performed By: #### 2 4323-8 #### [facility] CLIA [id number] [address] [place] [address] Protein [Mass/Vol] 6.8 g/dL Normal 6.3-8.0 [facility] Comment on above: Order Comment: Sanjana schultz Type: BLOOD SPECIMEN Ordering Facility: [facility] Address: [address] [address] Performed By: #### 2 4323-8 #### [facility] CLIA [id number] [address] [place] [address] Sodium [Moles/Vol] 141 mmol/L Normal 136-144 [facility] Comment on above: Order Comment: Speci men Type: BLOOD SPECIMEN Ordering Facility: [facility] Address: [address] [address] Performed By: #### 2 4323-8 #### [facility] CLIA [id number] [address] [place] [address] Urea nitrogen [Mass/Vol] 17 mg/dL Normal 7-21 [facility] Comment on above: Order Comment: Speci men Type: BLOOD SPECIMEN Ordering Facility: [facility] Address: [address] [place] [address] Performed By: #### 2 4323-8 #### [facility] CLIA [id number] [address] [place] [address] Ferritin SerPl-mCncon 2021 Ferritin [Mass/Vol] 27.4 ng/mL Normal 14.7-205.[address] [facility] Comment on above: Order Comment: Speci men Type: BLOOD SPECIMEN Ordering Facility: [facility] Address: [address] [place] [address] Performed By: #### 2 276-4 #### [facility] CLIA [id number] [address] [place] [address] [place] [employer] and Iron binding capaci ty panelon 03-14-2022 Iron [Mass/Vol] 56 ug/dL Normal 41-186 [facility] Comment on above: Order Comment: Speci men Type: BLOOD SPECIMEN Ordering Facility: [facility] Address: [address] [place] [address] Performed By: #### 5 0190-8 #### [facility] CLIA [id number] [facility] [place] [address] [place] Iron binding capacity [Mass/Vol] 298 ug/dL Normal 232-386 [facility] Comment on above: Order Comment: Speci men Type: BLOOD SPECIMEN Ordering Facility: [facility] Address: [address] [address] Performed By: #### 5 0190-8 #### [facility] CLIA [id number] [facility] [place] [address] [place] Iron/TIBC [Molar ratio] 18.8 % Normal 15.0-57.0 [facility] Comment on above: Order Comment: Speci men Type: BLOOD SPECIMEN Ordering Facility: [facility] Address: [address] [address] Performed By: #### 5 0190-8 #### [facility] CLIA [id number] [address] [place] [address] [place] CBC AUTO DIFFon 02-23-2022 BASO # 0.1 103/ul Normal 0.0-0.1 [facility] Comment on above: Performed By: #### C BC #### [facility] [address] [address] [address] Sarah Philippe Basophils/100 WBC (Bld) 0.6 % Normal 0.2-2.0 [facility] Comment on above: Performed By: #### C BC #### [facility] [address] [address] [address] Sarah Pihlippe EO # 0.2 103/ul Normal 0.0-0.7 [facility] Comment on above: Performed By: #### C BC #### [facility] [address] [address] [address] Sarah Philippe Eosinophils/100 WBC (Bld) 1.8 % Normal 0.9-7.0 [facility] Comment on above: Performed By: #### C BC #### [facility] [address] [address] [address] Sarah Philippe Erythrocyte distribution width (RBC) [Ratio] 13.9 % Normal 11.0-15.0 [facility] Comment on above: Performed By: #### C BC #### [facility] [address] [address] [address] Sarah Philippe Hematocrit (Bld) [Volume fraction] 45.3 % Normal 36.0-48.0 [facility] Comment on above: Performed By: #### C BC #### [facility] [address] [place] [address] Dr. Sarah Philippe Hemoglobin (Bld) [Mass/Vol] 14.8 g/dL Normal 12.0-16.0 [facility] Comment on above: Performed By: #### C BC #### [facility] [address] [place] [address] Dr. Sarah Philippe IG # 0.02 10e3/ul Normal 0.00-0.03 [facility] Comment on above: Performed By: #### C BC #### [facility] [address] [place] [address] Dr. Sarah Philippe IG % 0.2 % Normal 0.0-0.5 [facility] Comment on above: Performed By: #### C BC #### [facility] [address] [place] [address] Dr. Sarah Philippe LYMPH # 3.0 103/ul Normal 1.2-3.8 [facility] Comment on above: Performed By: #### C BC #### [facility] [address] [place] [address] Dr. Sarah Philippe Lymphocytes/100 WBC (Bld) 35.3 % Normal 20.5-60.0 [facility] Comment on above: Performed By: #### C BC #### [facility] [address] [place] [address] Dr. Sarah Philippe MANUAL DIFF REQ NO Normal [facility] Comment on above: Performed By: #### C BC #### [facility] [address] [place] [address] Dr. Sarah Philippe MCH (RBC) [Entitic mass] 27.5 pg Normal 26.7-34.0 [facility] Comment on above: Performed By: #### C BC #### [facility] [address] [address] [address] Sarah Philippe MCHC (RBC) [Mass/Vol] 32.7 g/dL Normal 29.9-35.2 [facility] Comment on above: Performed By: #### C BC #### [facility] [address] [address] [address] Sarah Philippe MCV (RBC) [Entitic vol] 84.0 fL Normal 81.0-99.0 [facility] Comment on above: Performed By: #### C BC #### [facility] [address] [address] [address] Sarah Philippe MONO # 0.5 103/ul Normal 0.3-0.8 [facility] Comment on above: Performed By: #### C BC #### [facility] [address] [place] [address] Dr. Sarah Philippe Monocytes/100 WBC (Bld) 6.3 % Normal 1.7-12.0 [facility] Comment on above: Performed By: #### C BC #### [facility] [address] [place] [address] Dr. Sarah Philippe NEUT # 4.7 103/ul Normal 1.4-6.5 [facility] Comment on above: Performed By: #### C BC #### [facility] [address] [place] [address] Dr. Sarah Philippe Neutrophils/100 WBC (Bld) 55.8 % Normal 43.0-75.0 [facility] Comment on above: Performed By: #### C BC #### [facility] [address] [address] [address] Sarah Philippe Platelet mean volume (Bld) [Entitic vol] 9.3 fL Critically low 9.5-13.5 [facility] Comment on above: Performed By: #### C BC #### [facility] [address] [place] [address] Dr. Sarah Philippe PLT 323 103/ul Normal 150-450 [facility] Comment on above: Performed By: #### C BC #### [facility] [address] [address] [address] Sarah Philippe RBC 5.39 106/ul Normal 4.20-5.40 [facility] Comment on above: Performed By: #### C BC #### [facility] [address] [place] [address] Dr. Sarah Philippe WBC 8.4 103/ul Normal 4.0-11.0 [facility] Comment on above: Performed By: #### C BC #### [facility] [address] [place] [address] Dr. Sarah Philippe LIPID PROFILEon 02-23-2022 CHOL-HDL RATIO NORM SEE BELOW Normal [facility] Comment on above: Result Comment: 3.3 - 4.4 LOW RISK 4.4 - 7.1 AVERAGE RISK 7.1 - 11.0 MODERATE RISK >11.0 HIGH RISK Performed By: #### C MP, TSH, T4, LIPID #### [facility] [address] [place] [address] Dr. Sarah Philippe Cholesterol [Mass/Vol] 287 mg/dL Critically high <=200 [facility] Comment on above: Performed By: #### C MP, TSH, T4, LIPID #### [facility] [address] [place] [address] Dr. Sarah Philippe Cholesterol in HDL [Mass/Vol] 40 mg/dL Normal 40-60 [facility] Comment on above: Performed By: #### C MP, TSH, T4, LIPID #### [facility] [address] [place] [address] Dr. Sarah Philippe Cholesterol in LDL [Mass/Vol] 183.4 mg/dL Normal [facility] Comment on above: Performed By: #### C MP, TSH, T4, LIPID #### [facility] [address] [place] [address] Dr. Sarah Philippe Cholesterol.total/Cho lesterol in HDL [Mass ratio] 7.2 {ratio} Normal [facility] Comment on above: Performed By: #### C MP, TSH, T4, LIPID #### [facility] [address] [place] [address] Dr. Sarah Philippe HDL NORMAL > or = 60 mg/dl - LOW CARDIOVASCULAR RISK <40 mg/dl - HIGH CARDIOVASCULAR RISK Normal [facility] Comment on above: Performed By: #### C MP, TSH, T4, LIPID #### [facility] [address] [address] [address] Sarah Philippe LDL CALC NORMAL SEE BELOW Normal [facility] Comment on above: Result Comment: <100 mg/dl OPTIMAL 100 - 129 mg/dl NEAR OR ABOVE OPTIMAL 130 - 159 mg/dl BORDERLINE HIGH 160 - 189 mg/dl HIGH >190 mg/dl VERY HIGH Performed By: #### C MP, TSH, T4, LIPID #### [facility] [address] [address] [address] Sarah Philippe Triglyceride [Mass/Vol] 318 mg/dL Critically high <=150 [facility] Comment on above: Performed By: #### C MP, TSH, T4, LIPID #### [facility] [address] [address] [address] Sarah Philippe VLDL CALC 63.6 mg/dL Normal [facility] Comment on above: Performed By: #### C MP, TSH, T4, LIPID #### [facility] [address] [place] [address] Dr. Sarah Philippe PROF 14(COMP METB)on 022 Albumin [Mass/Vol] 3.6 g/dL Normal 3.4-5.0 [facility] Comment on above: Performed By: #### C MP, TSH, T4, LIPID #### [facility] [address] [address] [address] Sarah Philippe Albumin/Globulin [Mass ratio] 0.9 {ratio} Normal [facility] Comment on above: Performed By: #### C MP, TSH, T4, LIPID #### [facility] [address] [place] [address] Dr. Sarah Philippe ALP [Catalytic activity/Vol] 102 U/L Normal 46-116 [facility] Comment on above: Performed By: #### C MP, TSH, T4, LIPID #### [facility] [address] [address] [address] Sarah Philippe ALT [Catalytic activity/Vol] 36 U/L Normal 14-59 [facility] Comment on above: Performed By: #### C MP, TSH, T4, LIPID #### [facility] [address] [address] [address] Sarah Philippe Anion gap [Moles/Vol] 10.6 mmol/L Normal Th [facility] Comment on above: Performed By: #### C MP, TSH, T4, LIPID #### [facility] [address] [address] [address] Sarah Philippe AST [Catalytic activity/Vol] 21 U/L Normal 15-37 [facility] Comment on above: Performed By: #### C MP, TSH, T4, LIPID #### [facility] [address] [place] [address] Dr. Sarah Philippe Bilirubin [Mass/Vol] 0.3 mg/dL Normal 0.2-1.0 [facility] Comment on above: Performed By: #### C MP, TSH, T4, LIPID #### [facility] [address] [place] [address] Dr. Sarah Philippe Calcium [Mass/Vol] 9.2 mg/dL Normal 8.5-10.1 [facility] Comment on above: Performed By: #### C MP, TSH, T4, LIPID #### [facility] [address] [place] [address] Dr. Sarah Philippe Chloride [Moles/Vol] 98 mmol/L Normal 98-107 [facility] Comment on above: Performed By: #### C MP, TSH, T4, LIPID #### [facility] [address] [place] [address] Dr. Sarah Philippe CO2 [Moles/Vol] 27.8 mmol/L Normal 21.0-32.0 [facility] Comment on above: Performed By: #### C MP, TSH, T4, LIPID #### [facility] [address] [place] [address] Dr. Sarah Philippe Creatinine [Mass/Vol] 1.00 mg/dL Normal 0.55-1.02 [facility] Comment on above: Performed By: #### C MP, TSH, T4, LIPID #### [facility] [address] [place] [address] Dr. Sarah Philippe EGFR-AF STATELESS >60 Normal >=60 [facility] Comment on above: Performed By: #### C MP, TSH, T4, LIPID #### [facility] [address] [address] [address] Sarah Philippe EGFR-NON AF STATELESS 58 mL/min/1.73m2 Critically low >=60 [facility] Comment on above: Performed By: #### C MP, TSH, T4, LIPID #### [facility] [address] [place] [address] Dr. Sarah Philippe Globulin (S) [Mass/Vol] 4.1 g/dL Normal [facility] Comment on above: Performed By: #### C MP, TSH, T4, LIPID #### [facility] [address] [place] [address] Dr. Sarah Philippe Glucose [Mass/Vol] 108 mg/dL Critically high 74-106 [facility] Comment on above: Performed By: #### C MP, TSH, T4, LIPID #### [facility] [address] [place] [address] Dr. Sarah Philippe Potassium [Moles/Vol] 3.4 mmol/L Critically low 3.5-5.1 [facility] Comment on above: Performed By: #### C MP, TSH, T4, LIPID #### [facility] [address] [place] [address] Dr. Sarah Philippe Protein [Mass/Vol] 7.7 g/dL Normal 6.4-8.2 [facility] Comment on above: Performed By: #### C MP, TSH, T4, LIPID #### [facility] [address] [place] [address] Dr. Sarah Philippe Sodium [Moles/Vol] 133 mmol/L Critically low 136-145 [facility] Comment on above: Performed By: #### C MP, TSH, T4, LIPID #### [facility] [address] [place] [address] Dr. Sarah Philippe Urea nitrogen [Mass/Vol] 15.0 mg/dL Normal 7.0-18.0 [facility] Comment on above: Performed By: #### C MP, TSH, T4, LIPID #### [facility] [address] [address] [address] Sarah Philippe Urea nitrogen/Creatinine [Mass ratio] 15.0 mg/mg Normal [facility] Comment on above: Performed By: #### C MP, TSH, T4, LIPID #### [facility] [address] [address] [address] Sarah Philippe T4on 02-23-2022 T4 [Mass/Vol] 8.40 ug/dL Normal 4.80-13.90 [facility] Comment on above: Performed By: #### C MP, TSH, T4, LIPID #### [facility] [address] [address] [address] Sarah Philippe TSHon 02-23-2022 TSH 1.815 uIU/mL Normal 0.358-3.740 [facility] Comment on above: Performed By: #### C MP, TSH, T4, LIPID #### [facility] [address] [address] [address] Sarah Philippe Covid-19 PCR ([facility])on 08-06 SARS-CoV-2 (COVID-19) RNA DARÍO+probe Ql (Unsp spec) Detected Critically abnormal NOT DETECTED [facility] Comment on above: Result Comment: This test is not yet approved or cleared by the [place] FDA. When there are no FDA-approved or cleared tests available, and other criteria are met, FDA can make tests available under an emergency access mechanism called an Emergency Use Authorization (EUA). The EUA for this test is supported by the Managed Care Director of Health and Human Service's (HHS's) declaration that circumstances exist to justify the emergency use of in vitro diagnostics for the detection and/or diagnosis of the virus that causes COVID-19. This EUA will remain in effect (meaning this test can be used) for the duration of the COVID-19 declaration justifying emergency of IVDs, unless it is terminated or revoked by FDA (after which the test may no longer be used). Performed By: #### C VDTBH #### [facility] [address] [address] [address] Sarah Philippe Basophils Auto (Bld) [#/Vol] Ordered By: Chris Borden on 07-20-2021 Basophils (Bld) [#/Vol] 0.1 10*3/uL 0.0-0.2 [facility] Basophils/100 WBC Auto (Bld) Ordered By: Chris Borden on 07-20-2021 Basophils/100 WBC (Bld) 0.6 % [facility] Blood hemoglobin measurement (mass/volume)Ordered By: Chris Borden on 07-20-2021 Hemoglobin (Bld) [Mass/Vol] 14.9 g/dL 11.8-15.4 [facility] Blood leukocytes automated c ount (number/volume)Ordered By: Chris Borden on 07-20-2021 WBC (Bld) [#/Vol] 9.6 10*3/uL 4.5-11.0 [facility] COVID-19 Positive/NegativeOr dered By: Chris Borden on 07-20-2021 SARS-CoV-2 (COVID-19) N gene DARÍO+probe Ql (Resp) Negative Negative [facility] Comment on above: Testing for SARS-CoV -2 by RT-PCR This test was developed and its performance characteristics determined by [employer] and validated at the [facility]. This test has not been FDA cleared or approved. This test has been authorized by FDA under an Emergency Use Authorization (EUA). This test has been validated in accordance with the FDA's Guidance Document (Policy for Diagnostics Testing in Laboratories Certified to Perform High Complexity Testing under CLIA prior to Emergency Use Authorization for Coronavirus Disease-2019 during the Public Health Emergency) issued on July 09, 2019. This test is only authorized for the duration of time the declaration that circumstances exist justifying the authorization of the emergency use of in vitro diagnostic tests for detection of SARS-CoV-2 virus and/or diagnosis of COVID-19 infection under section 564(b)(1) of the Act, 21 U.S.C. 360bbb-3(b)(1), unless the authorization is terminated or revoked sooner. Creatinine and Glomerular fi ltration rate.predicted panel (S/P/Bld)Ordered By: Chris Borden on 07-20-2021 Creatinine [Mass/Vol] 0.97 mg/dL 0.44-1.03 [facility] Eosinophils Auto (Bld) [#/Vo l]Ordered By: Chris Borden on 07-20-2021 Eosinophils (Bld) [#/Vol] 0.2 10*3/uL 0.0-0.45 [facility] Eosinophils/100 WBC Auto (Bl d)Ordered By: Chris Borden on 07-20-2021 Eosinophils/100 WBC (Bld) 2.0 % [facility] Erythrocyte distribution wid th Auto (RBC) [Ratio]Ordered By: Chris Borden on 07-20-2021 Erythrocyte distribution width (RBC) [Ratio] 14.1 % 11.9-15.3 [facility] Estimated glomerular filtrat ion rate (GFR) non- AmericanOrdered By: Chris Borden on 07-20-2021 GFR/1.73 sq M.predicted among non-blacks MDRD (S/P/Bld) [Vol rate/Area] 60 mL/Min [facility] Hematocrit Auto (Bld) [Volum e fraction]Ordered By: Chris Borden on 07-20-2021 Hematocrit (Bld) [Volume fraction] 44.0 % 34.0-46.4 [facility] Laboratory - Hematology and Cell countsOrdered By: Chris Borden on 07-20-2021 Nucleated RBC/100 WBC (Bld) [Ratio] 0.3 % 0-0.5 [facility] Lymphocytes Auto (Bld) [#/Vo l]Ordered By: Chris Borden on 07-20-2021 Lymphocytes (Bld) [#/Vol] 3.3 10*3/uL 1.00-4.8 [facility] Lymphocytes/100 WBC Auto (Bl d)Ordered By: Chris Borden on 07-20-2021 Lymphocytes/100 WBC (Bld) 34.3 % [facility] MCH Auto (RBC) [Entitic mass ]Ordered By: Chris Borden on 07-20-2021 MCH (RBC) [Entitic mass] 28.9 pg 24.7-34.3 [facility] MCHC Auto (RBC) [Mass/Vol]Or dered By: Chris Borden on 07-20-2021 MCHC (RBC) [Mass/Vol] 33.8 g/dL 32.0-35.0 [facility] MCV Auto (RBC) [Entitic vol] Ordered By: Chris Borden on 07-20-2021 MCV (RBC) [Entitic vol] 85.6 fL 80-100 [facility] Monocytes Auto (Bld) [#/Vol] Ordered By: Chris Borden on 07-20-2021 Monocytes (Bld) [#/Vol] 0.4 10*3/uL 0.0-0.8 [facility] Monocytes/100 WBC Auto (Bld) Ordered By: Chris Borden on 07-20-2021 Monocytes/100 WBC (Bld) 4.7 % [facility] Neutrophils Auto (Bld) [#/Vo l]Ordered By: Chris Borden on 07-20-2021 Neutrophils (Bld) [#/Vol] 5.6 10*3/uL 1.8-7.7 [facility] Neutrophils/100 WBC Auto (Bl d)Ordered By: Chris Borden on 07-20-2021 Neutrophils/100 WBC (Bld) 58.4 % [facility] No Panel InformationOrdered By: Chris Borden on 07-20-2021 Estimated GFR () > 60 mL/Min [facility] Comment on above: GFR estimated refere nce range: According to KDOQI guidelines, <60 ml/min/1.73m2 is sufficient to diagnose a patient with chronic kidney disease. Pharmacy Creatinine Clearance (Chem N/A [facility] Platelet mean volume Auto (B ld) [Entitic vol]Ordered By: Chris Borden on 07-20-2021 Platelet mean volume (Bld) [Entitic vol] 7.7 fL 6.3-10.7 [facility] Platelets Auto (Bld) [#/Vol] Ordered By: Chris Borden on 07-20-2021 Platelets (Bld) [#/Vol] 365 10*3/uL 150-450 [facility] RBC Auto (Bld) [#/Vol]Ordere d By: Chris Borden on 07-20-2021 RBC (Bld) [#/Vol] 5.14 10*6/uL 3.60-5.00 [facility] Serum or plasma calcium georgie urement (mass/volume)Ordered By: Chris Borden on 07-20-2021 Calcium [Mass/Vol] 9.2 mg/dL 8.2-10.2 [facility] Serum or plasma chloride carolina surement (moles/volume)Ordered By: Chris Borden on 07-20-2021 Chloride [Moles/Vol] 95 mmol/L 95-114 [facility] Serum or plasma glucose georgie urement (mass/volume)Ordered By: Chris Borden on 07-20-2021 Glucose [Mass/Vol] 99 mg/dL 70-100 [facility] Comment on above: ADA recommended refe rence range Random Glucose Reference Range is dependent on time and content of last meal. Glucose of more than 200 mg/dL in a nonstressed, ambulatory subject supports the diagnosis of Diabetes Mellitus. Serum or plasma potassium me asurement (moles/volume)Ordered By: Chris Borden on 07-20-2021 Potassium [Moles/Vol] 3.5 mmol/L 3.5-5.1 [facility] Serum or plasma sodium measu rement (moles/volume)Ordered By: Chris Borden on 07-20-2021 Sodium [Moles/Vol] 134 mmol/L 136-146 [facility] Serum or plasma total carbon dioxide measurement (moles/volume)Ordered By: Chris Borden on 07-20-2021 CO2 [Moles/Vol] 25.9 mmol/L 22.0-30.0 [facility] Serum or plasma urea nitroge n measurement (mass/volume)Ordered By: Chris Borden on 07-20-2021 Urea nitrogen [Mass/Vol] 14 mg/dL 9-23 [facility] Coding Summary.on 03-17-2020 Coding Summary. CODING DATE: 03/17/2020 [facility] STATUS: Home (Routine DC) PAYOR: Commercial Insurance ADMIT DX: REASON FOR VISIT DX: Z20.828 Contact with and (suspected) exposure to other viral communicable diseases FINAL DX: PRINCIPAL: Z20.828 Contact with and (suspected) exposure to other viral communicable diseases SECONDARY: PYMT PROC APC STAT DESCRIPTION DOCTOR NAME DATE NOTE: The code number assigned matches the documented diagnosis and / or procedure in the patient's chart. However, the narrative phrase printed from the coding software may appear abbreviated, or result in slightly different terminology. Coded By: Jessica Poon CphT Date Saved: 03/17/2020 04:51 pm Normal [facility] SARS-CoV-2, NAAon 03-12-2020 SARS-CoV-2 (COVID-19) RNA DARÍO+probe Ql (Resp) Not detected Invalid Interpretation Code Not Detected [facility] Comment on above: Result Comment: This nucleic acid amplification test was developed and its performance characteristics determined by [facility]. Nucleic acid amplification tests include PCR and TMA. This test has not been FDA cleared or approved. This test has been authorized by FDA under an Emergency Use Authorization (EUA). This test is only authorized for the duration of time the declaration that circumstances exist justifying the authorization of the emergency use of in vitro diagnostic tests for detection of SARS-CoV-2 virus and/or diagnosis of COVID-19 infection under section 564(b)(1) of the Act, 21 U.S.C. 360bbb-3(b) (1), unless the authorization is terminated or revoked sooner. When diagnostic testing is negative, the possibility of a false negative result should be considered in the context of a patient's recent exposures and the presence of clinical signs and symptoms consistent with COVID-19. An individual without symptoms of COVID-19 and who is not shedding SARS-CoV-2 virus would expect to have a negative (not detected) result in this assay. Performed at: [facility] [address] [facility], [place] [id number] [facility] Abbe Velasquez Performed By: #### S ARS-CoV-2, DARÍO #### [facility] [address] [place] [address] Physician Orderon 03-09-2020 Physician Order [id number] #[id number]:127 Normal [facility] Coding Summary.on 11-20-2019 Coding Summary. CODING DATE: 11/20/2019 FINAL [facility] STATUS: Home (Routine DC) PAYOR: Commercial Insurance ADMIT DX: REASON FOR VISIT DX: Z01.818 Encounter for other preprocedural examination FINAL DX: PRINCIPAL: Z01.818 Encounter for other preprocedural examination SECONDARY: Z20.828 Contact with and (suspected) exposure to other viral communicable diseases PYMT PROC APC STAT DESCRIPTION DOCTOR NAME DATE NOTE: The code number assigned matches the documented diagnosis and / or procedure in the patient's chart. However, the narrative phrase printed from the coding software may appear abbreviated, or result in slightly different terminology. Coded By: Britney Pabon Date Saved: 11/20/2019 07:41 am Normal [facility] SARS-CoV-2, NAAon 11-05-2019 SARS-CoV-2 (COVID-19) RNA DARÍO+probe Ql (Resp) Not detected Invalid Interpretation Code Not Detected [facility] Comment on above: Result Comment: This test was developed and its performance characteristics determined by [facility]. This test has not been FDA cleared or approved. This test has been authorized by FDA under an Emergency Use Authorization (EUA). This test is only authorized for the duration of time the declaration that circumstances exist justifying the authorization of the emergency use of in vitro diagnostic tests for detection of SARS-CoV-2 virus and/or diagnosis of COVID-19 infection under section 564(b)(1) of the Act, 21 U.S.C. 360bbb-3(b)(1), unless the authorization is terminated or revoked sooner. When diagnostic testing is negative, the possibility of a false negative result should be considered in the context of a patient's recent exposures and the presence of clinical signs and symptoms consistent with COVID-19. An individual without symptoms of COVID-19 and who is not shedding SARS-CoV-2 virus would expect to have a negative (not detected) result in this assay. Performed at: [facility] [address] [facility], [place] [id number] MD Arvind Zuniga Performed By: #### S ARS-CoV-2, DARÍO #### [facility] [address] [place] [address] Physician Orderon 10-30-2019 Physician Order [id number]:127 Normal [facility] Vital Signs Date Time Vital Sign Value Performing Clinician Facility 03-11-2023 10:00-0500 Body height 166.37 cm Luisa Missler Other [facility] Other 03-11-2023 10:00-0500 Body mass index (BMI) [Ratio] 44.5 kg/m2 Luisa Missler Other [facility] Other 03-11-2023 10:00-0500 Body weight 123.2 kg Luisa Missler Other [facility] Other 03-11-2023 10:00-0500 Diastolic blood pressure 90 mm[Hg] Luisa Missler Other [facility] Other 03-11-2023 10:00-0500 Respiratory rate 18 /min Luisa Missler Other [facility] Other 03-11-2023 10:00-0500 SaO2% (BldA) [Mass fraction] 94 % Luisa Missler Other [facility] Other 03-11-2023 10:00-0500 Systolic blood pressure 114 mm[Hg] Luisa Missler Other [facility] Other 02-27-2023 08:00-0500 Body height 167.64 cm Sylvia Chavez Other [facility] Other 02-27-2023 08:00-0500 Body mass index (BMI) [Ratio] 44.16 kg/m2 Sylvia Shearafat Other [facility] Other 02-27-2023 08:00-0500 Body weight 124.1 kg Sylvia Wallcyrus Other [facility] Other 02-27-2023 08:00-0500 Diastolic blood pressure 86 mm[Hg] Sylvia Kathy Other [facility] Other 02-27-2023 08:00-0500 Respiratory rate 18 /min Sylvia Kathy Other [facility] Other 02-27-2023 08:00-0500 SaO2% (BldA) [Mass fraction] 97 % Sylvia Shearafat Other [facility] Other 02-27-2023 08:00-0500 Systolic blood pressure 124 mm[Hg] Sylvia Shearafat Other [facility] Other 10-11-2022 11:22-0400 Body temperature 98.01 [degF] Chair Ellen Work Phone: [facility] 10-11-2022 11:22-0400 Diastolic blood pressure 76 mm[Hg] Chair Canóvanas Work Phone: [facility] 10-11-2022 11:22-0400 Heart rate 78 /min Chair Canóvanas Work Phone: [facility] 10-11-2022 11:22-0400 Respiratory rate 16 /min Chair Ellen Work Phone: [facility] 10-11-2022 11:22-0400 SaO2% (BldA) [Mass fraction] 96 % Chair Canóvanas Work Phone: [facility] 10-11-2022 11:22-0400 Systolic blood pressure 109 mm[Hg] Chair Canóvanas Work Phone: [facility] 07-20-2021 15:02-0400 Body height 167.64 cm DO Maury House Work Phone: [facility] 07-20-2021 15:02-0400 Body mass index (BMI) [Ratio] 42.2 kg/m2 DO Maury House Work Phone: [facility] 07-20-2021 15:02-0400 Body temperature 98.4 [degF] DO Maury House Work Phone: [facility] 07-20-2021 15:02-0400 Body weight 118.7 kg DO Maury House Work Phone: [facility] 07-20-2021 15:02-0400 Diastolic blood pressure 90 mm[Hg] DO Maury House Work Phone: [facility] 07-20-2021 15:02-0400 Heart rate 97 /min DO Maury House Work Phone: [facility] 07-20-2021 15:02-0400 Respiratory rate 18 /min DO Maury House Work Phone: [facility] 07-20-2021 15:02-0400 SaO2% (BldA) [Mass fraction] 95 % DO Maury House Work Phone: [facility] 07-20-2021 15:02-0400 Systolic blood pressure 131 mm[Hg] DO Maury House Work Phone: [facility] Encounters Encounter Date Encounter Type Care Provider Facility Start: 03-11-2023 Encounter by genaro Chavez [facility] Start: 03-11-2023 Nutrition therapy Luisa Fabian [facility] Start: 03-11-2023 Telephone encounter Luisa Fabian [facility] Start: 03-11-2023 End: 03-11-2023 ambulatory Sylvia Rohrbacher [facility] Other Start: 03-07-2023 End: 03-07-2023 ambulatory Sylvia Chavez Other [facility] Other Start: 03-07-2023 Encounter by genrao Chavez [facility] Start: 03-07-2023 Telephone encounter Sylvia islas [facility] Start: 03-04-2023 End: 03-04-2023 ambulatory Zoila Grant Other [facility] Other Start: 03-04-2023 Telephone encounter Zoila Grant [facility] Start: 02-27-2023 End: 02-27-2023 ambulatory Sylvia Chavez Other [facility] Other Start: 02-27-2023 Office outpatient ne w 30 minutes Sylvia Chavez [facility] Start: 02-14-2023 ambulatory Yosef Zhang MD Work Phone: Hematology/Oncology Comment on above: Tests Start: 10-11-2022 End: 10-11-2022 ambulatory Chair 13 Ellen Work Phone: Hematology/Oncology Comment on above: Iron deficiency anem ia due to chronic blood loss (Primary Dx) Start: 10-04-2022 End: 10-04-2022 ambulatory FATOU DUTTON Facility:[facility] Start: 10-04-2022 End: 10-04-2022 ambulatory Chair 14 Ellen Work Phone: Hematology/Oncology Comment on above: Iron deficiency anem ia due to chronic blood loss (Primary Dx) Start: 09-27-2022 End: 09-28-2022 ambulatory FATOU DUTTON Facility:[facility] Start: 09-24-2022 Social Work Cash SALGADOW Hematolo gy/Oncology Start: 09-17-2022 End: 09-17-2022 ambulatory MAURY WALLACE SR Facility:[facility] Start: 09-11-2022 ambulatory Yosef Zhang MD Work Phone: Hematology/Oncology Comment on above: Question regarding C BC + DIFF Start: 09-10-2022 End: 09-10-2022 ambulatory YOSEF ZHANG Facility:[facility] Start: 09-06-2022 ambulatory Yosef Zhang MD Work Phone: Hematology/Oncology Comment on above: Lab Start: 07-27-2022 End: 07-28-[address] MAURY WALLACE Facility:[facility] Start: 03-14-2022 End: 03-14-2022 ambulatory FATOU Sepulveda WINSTON Facility:[facility] Start: 02-23-2022 End: 02-24-[address] MAURY WALLACE Facility:[facility] Start: 08-24-2021 End: 08-24-[address] MAURY WALLACE Facility:[facility] Start: 07-24-2021 End: 07-24-2021 Departed Referred DO Maury Himanshu Work Phone: [facility] Start: 07-20-2021 End: 07-20-2021 Patient encounter procedure DO Maury Wallace Work Phone: [facility] Start: 06-16-2021 Telephone encounter Marquise deras DO Work Phone: Cardiology Comment on above: Appointment Start: 08-26-2020 End: 08-26-2020 Chart abstracting Yosef Zhang MD Work Phone: Hematology/Oncology Procedures Date Procedure Procedure Detail Performing Clinician Start: 01-17-2021 Adult depression scr eening assessment Marquise Freire DO Work Phone: Start: 12-20-2020 Colonoscopy Marquise deras DO Work Phone: Start: 09-06-2020 Lipid 1996 panel - S tam or Plasma Yosef Zhang MD Work Phone: Plan of Treatment Date Care Activity Detail Author Start: 09-27-2025 DIABETES SCREEN DIABETES SCREEN [facility] Start: 09-27-2025 Diabetes Screening Diabetes Screenin g [facility] Start: 09-06-2025 Lipid 1996 panel - S tam or Plasma Lipid Screening [facility] Start: 09-06-2025 LIPID SCREEN LIPID SCREEN [facility] Start: 03-14-2025 DIABETES SCREEN DIABETES SCREEN [facility] Start: 01-18-2024 DIABETES SCREEN DIABETES SCREEN [facility] Start: 02-14-2023 End: 05-16-2023 CBC W Auto Differential panel - Blood CBC + DIFF Lab Routine Iron deficiency anemia due to chronic blood loss Malaise and fatigue Expected: 02/14/2023, Expires: 05/16/2023 [facility] Work Phone: Comment on above: Expected: 02/14/2023 , Expires: 05/16/2023 Start: 02-14-2023 End: 05-16-2023 Cobalamin (Vitamin B12) [Mass/volume] in Serum or Plasma VITAMIN B12 BLOOD Lab Routine Iron deficiency anemia due to chronic blood loss Malaise and fatigue Expected: 02/14/2023, Expires: 05/16/2023 [facility] Work Phone: Comment on above: Expected: 02/14/2023 , Expires: 05/16/2023 Start: 02-14-2023 End: 05-16-2023 Comprehensive metabolic 2000 panel - Serum or Plasma COMP METABOLIC PANEL Lab Routine Iron deficiency anemia due to chronic blood loss Malaise and fatigue Expected: 02/14/2023, Expires: 05/16/2023 [facility] Work Phone: Comment on above: Expected: 02/14/2023 , Expires: 05/16/2023 Start: 02-14-2023 End: 05-16-2023 Ferritin [Mass/volume] in Serum or Plasma FERRITIN BLD Lab Routine Iron deficiency anemia due to chronic blood loss Malaise and fatigue Expected: 02/14/2023, Expires: 05/16/2023 [facility] Work Phone: Comment on above: Expected: 02/14/2023 , Expires: 05/16/2023 Start: 02-14-2023 End: 05-16-2023 Folate [Mass/volume] in Serum or Plasma FOLATE SERUM Lab Routine Iron deficiency anemia due to chronic blood loss Malaise and fatigue Expected: 02/14/2023, Expires: 05/16/2023 [facility] Work Phone: Comment on above: Expected: 02/14/2023 , Expires: 05/16/2023 Start: 02-14-2023 End: 05-16-2023 Iron and Iron binding capacity panel - Serum or Plasma IRON + TIBC Lab Routine Iron deficiency anemia due to chronic blood loss Malaise and fatigue Expected: 02/14/2023, Expires: 05/16/2023 [facility] Work Phone: Comment on above: Expected: 02/14/2023 , Expires: 05/16/2023 Start: 02-14-2023 End: 05-16-2023 Thyrotropin [Units/volume] in Serum or Plasma TSH BLD Lab Routine Iron deficiency anemia due to chronic blood loss Malaise and fatigue Expected: 02/14/2023, Expires: 05/16/2023 [facility] Work Phone: Comment on above: Expected: 02/14/2023 , Expires: 05/16/2023 Start: 12-07-2022 Colonoscopy COLONOSCOPY [facility] Start: 12-07-2022 COLORECTAL CANCER SCREENING COLORECTAL CANCER SCREENING [facility] Start: 12-07-2022 Covid-19 Vaccine () Covid-19 Vaccine () [facility] Start: 12-07-2022 Influenza vaccination C [facility] Start: 09-12-2022 End: 11-12-2022 Comprehensive metabolic 2000 panel - Serum or Plasma COMP METABOLIC PANEL Lab Routine Iron deficiency anemia due to chronic blood loss Expected: 09/12/2022, Expires: 11/12/2022 [facility] Work Phone: Comment on above: Expected: 09/12/2022 , Expires: 11/12/2022 Start: 09-07-2022 End: 11-07-2022 CBC W Auto Differential panel - Blood CBC + DIFF Lab Routine Iron deficiency anemia due to chronic blood loss Expected: 09/07/2022, Expires: 11/07/2022 [facility] Work Phone: Comment on above: Expected: 09/07/2022 , Expires: 11/07/2022 Start: 09-07-2022 End: 09-08-2023 Ferritin [Mass/volume] in Serum or Plasma FERRITIN BLD Lab Routine Iron deficiency anemia due to chronic blood loss Expected: 09/07/2022, Expires: 09/08/2023 [facility] Work Phone: Comment on above: Expected: 09/07/2022 , Expires: 09/08/2023 Start: 09-07-2022 End: 09-08-2023 Iron and Iron binding capacity panel - Serum or Plasma IRON + TIBC Lab Routine Iron deficiency anemia due to chronic blood loss Expected: 09/07/2022, Expires: 09/08/2023 [facility] Work Phone: Comment on above: Expected: 09/07/2022 , Expires: 09/08/2023 Start: 09-07-2022 End: 11-07-2022 RETIC COUNT RETIC COUNT Lab Routine Iron deficiency anemia due to chronic blood loss Expected: 09/07/2022, Expires: 11/07/2022 [facility] Work Phone: Comment on above: Expected: 09/07/2022 , Expires: 11/07/2022 Start: 04-08-2022 DEPRESSION ASSESSMENT DEPRESSION ASS ESSMENT [facility] Start: 01-17-2022 Adult depression screening assessment DEPRESSION SCREENING [facility] Start: 12-07-2021 Influenza vaccination INFLUENZ A (Season Ended) [facility] Start: 09-01-2021 FECAL OCCULT BLOOD FECAL OCCULT BLOO D [facility] Start: 07-24-2021 OR Wound Debridement/I&D/Hydraden itis (Not Applicable) OR Wound Debridement/I&D/Hydrade nitis (Not Applicable) [facility] Start: 01-15-2021 COVID-19 VACCINE (3 - Booster for Pfizer series) COVID-19 VACCINE (3 - Booster for Pfizer series) [facility] Start: 12-07-2020 Influenza vaccination INFLUENZ A (Season Ended) [facility] Start: 10-10-2020 COVID-19 VACCINE (3 - Booster for Pfizer series) COVID-19 VACCINE (3 - Booster for Pfizer series) [facility] Start: 06-14-2019 Screening for malign ant neoplasm of colon [facility] Start: 06-14-2019 SHINGRIX VACCINE (1 of 2) SHINGRIX VACCINE (1 of 2) [facility] Start: 2014 COLOGUARD (FIT-DNA) COLOGUARD (FIT-D NA) [facility] Start: [address] COLONOGRAPHY [facility] Start: 2014 DIABETES SCREEN DIABETES SCREEN [facility] Start: 2014 LIPID SCREEN LIPID SCREEN [facility] Start: 2014 SIGMOIDOSCOPY SIGMOIDOSCOPY [facility] Start: 2009 Mammography [facility] Start: 06-14-1999 HPV TESTING HPV TESTING [facility] Start: 1990 PAP TESTING PAP TESTING [facility] Start: 1988 Urine microalbumin profile [facility] Start: 06-14-1987 HEPATITIS C SCREENING HEPATITIS C SC REENING [facility] Start: 06-14-1987 HIV SCREENING HIV SCREENING [facility] Start: 1981 Adult depression screening assessment DEPRESSION SCREENING [facility] Start: 06-14-1975 PNEUMOCOCCAL (1 - PCV) PNEUMOCOCCAL (1 - PCV) [facility] Start: 06-14-1975 Pneumococcal vaccination Pneum ococcal Vaccine (1 - PCV) [facility] Start: 1969 HEPATITIS B (1 of 3 - 3-dose series) HEPATITIS B (1 of 3 - 3-dose series) [facility] Start: 1969 Hepatitis B Vaccine (1 of 3 - 3-dose series) Hepatitis B Vaccine (1 of 3 - 3-dose series) [facility] Immunizations Immunization Date Immunization Notes Care Provider Richard monroe 08-15-2020 COVID-19 vaccine, ag e 12+ yr (Infinite Z-Propagenix - PURPLE TOP) Marquise Freire DO Work Phone: [facility] 07-18-2020 COVID-19 vaccine, ag e 12+ yr (Infinite Z-HyperWeekNTBlogGlue - PURPLE TOP) Marquise Freire DO Work Phone: [facility] Payers Date Payer Category Payer Self-pay [id number] 2017 Private Health Insurance [id number] 2014 Private Health Insurance [id number] 1969 Unknown [id number] 1969 Unknown [id number] 1969 Unknown [id number] [id number] [id number] 1969 Unknown [id number] 1959 Private Health Insurance [id number] Private Health Insurance [id number] Unknown [id number] Social History Date Type Detail Facility Start: 08-26-2020 Tobacco smoking stat us CAIS Unknown if ever smoked [facility] Start: 1970 Sex Assigned At Not on file C [facility] Start: 06-09-2021 End: 06-19-2021 Exposure to SARS-CoV-2 (event) Not sure [facility] Start: 08-31-2020 End: 09-01-2020 Tobacco smoking status NHIS Smokes tobacco daily [facility] History of tobacco use [facility] Start: 08-31-2020 End: 09-17-2022 Cigarettes smoked current (pack per day) - Reported 1 [facility] Start: 08-31-2020 End: 09-01-2020 Tobacco use and exposure Smokeless tobacco non-user [facility] Start: 01-17-2021 Alcohol intake Lifetime non-d jaya (finding) [facility] Start: 09-01-2020 History SDOH Alcohol Frequency 1 [facility] Start: 1970 Sex Assigned At Female C [facility] Start: 07-20-2021 Tobacco smoking stat us [facility] Smoker (finding) [facility] Start: 01-17-2021 End: 09-17-2022 Tobacco use panel [facility] Adult Depression Screening Assessment 0 [facility] Start: 09-01-2020 Gender identity Identifies as female gender (finding) [facility] Start: 09-01-2020 Sexual orientation Heterosexual (eladio jacques) [facility] Clinical Notes 07-05-2021 to 03-11-2023 Note Date & Type Note Facility 03-11-2023 Evaluation note Encounter Date Diagnosis Assessment Notes Mar, Obesity (ICD-10 - E66.9) Findings consistent with obesity. Patient understands that this increases risk of multiple comorbidities associated with weight gain especially if there is a genetic predisposition. Discussed the complexity behind obesity and its multifactorial causes including genetics, the biological changes that occur with processed foods as well as lack of physical activity. We will assess for underlying causes of abnormal weight gain including thyroid dysfunction, poor sleep, medications, diet, etc. Discussed importance of adopting a healthier lifestyle in order to decrease or eliminate risk of impending diseases associated with excessive weight. Initial goal of modest weight loss approximately 3 to 5% can help to improve risk factors and some comorbidities. Our second goal of 10 to 15% weight loss can result in even more potentially disease modifying, remission, or improved mortality benefits. Consider Wegovy if approved by her spouses [facility] although not physically available for hand bookbinder at this time. I agree with the patient and the judicial use of Ozempic in the setting of a nationwide shortage for diabetes patients which was her concern not necessarily of the medication itself. Strongly consider Wellbutrin/naltr exone as a secondary medication with her history of anxiety and depression, stress and emotional eating as well as her desire to stop smoking. Concern for constipation with either. Hopefully we can increase fiber, better dietary choices and water as well as a fiber supplement as needed prior to implementing these medications. Establish with dietitian for meal prep and planning guidance with specific instruction on picky eater's and healthier eating for the family without excess work to make 2 meals. Increase fiber and protein to help with cholesterol and satiety Priority intervention to decrease or eliminate sweet tea which can decrease sugar intake/immediate energy that is getting stored as well as decrease pancreas load and improve liver health. Hopefully with the elimination of sweet tea so also decrease her caffeine intake which may be impairing her ability to sleep more than 4 hours. She is open to establishing with our interior decorator for guidance on physical activity at a local gym She has previous diagnosis of sleep apnea in 2020 or 2021 but unable to tolerate the mask, strongly consider retrying intervention as this significantly increases her cardiometabolic risk actors Mar, Impaired fasting glucose (ICD-10 - R73.01) Mar, Gastroesophageal reflux disease with esophagitis without hemorrhage (ICD-10 - K21.00) Patient does suffer from GERD likely related to/ exacerbated by increased weight. Treat with weight loss and dietary changes. With moderate weight loss patient could achieve complete relief from GERD symptoms due to increased intraabdominal pressure. Could consider goal of being weaned off of medication after consideration to any other underlying etiologies/treat ment. Patient to work closely with dietitian to help make healthy dietary choices and avoid reflux- inducing foods. Briefly discussed these including avoiding citrus, high fat dairy, high fat meats and carbonated beverages, alcohol and coffee. Handout with foods to help avoid that are not as well known triggers handed to patient Mar, Cigarette nicotine dependence without complication (ICD-10 - F17.210) Patient does desire to stop smoking but is also working on several other aspects of her health at this point in time. Wellbutrin is not a bad medication for patient for several reasons for weight loss, anxiety, smoking cessation etc. Strongly consider this Mar, Nonalcoholic fatty liver disease (ICD-10 - K76.0) Mar, Mixed hyperlipidemia (ICD-10 - E78.2) Patient has strong history of hyperlipidemia current ratio at 7.2. We did discuss the significance of this and I threshold of less than 5 being at lower cardiovascular risk. She also has several other cardiometabolic risk factors working against her including smoking, paired fasting glucose untreated sleep apnea etc. Discussed etiology of hyperlipidemia. Treat with decreasing the simple sweets, added sugars, refined starches and bad fats. Encouraged increased activity and exercise and continue long-term weight loss goals. Mar, Daytime sleepiness (ICD-10 - R40.0) Encouraged good sleep hygiene by going to bed at approximately the same time each night and similar waking hours each day, not eating too close to bedtime, avoid excessive fluids and eating shortly before bed, turning off blue light on phone/computers, silencing notifications, etc. Fatigue during the day could also be related to blood sugar spikes and subsequent crashes related to poor dietary habits of high glucose or high carbohydrate meals and snacks. Increase water intake. Mar, Depression (ICD-10 - F32.9) PHQ-9 is positive for moderate depression with a score of 16. Patient states mood is stable overall today and denies any significant mood swings or depressive thoughts. We would use extreme caution or avoid medications for weight loss including Qsymia, phentermine due to possibility of worsening depression. Discussed this with patient when evaluating for appropriate medication. Mar, Prediabetes (ICD-10 - R73.09) Patient meets criteria for prediabetes with A1c of 6.2% in office today and elevated fasting glucose. First-line treatment with long-term healthy lifestyle change, decrease simple sweets and refined starches, increased exercise and activity and continue with long-term weight loss goals. Will need close long-term follow-up for this condition to prevent diabetes. Consider metformin or GLP-1 agonist. Mar, Anxiety (ICD-10 - F41.9) Mar, Sleep apnea (ICD-10 - G47.30) Patient had a sleep study with a positive diagnosis of sleep apnea in 2020 or 2021 but was unable to tolerate the mask due to anxiety and panic attacks. Patient understands that sleep apnea significantly increases risk of cardiac complications as well as hypertension, daytime fatigue, and brain fog among others. Educated that CPAP compliance is of utmost importance to help prevent related comorbidities. Treat with weight loss with a goal of less positive pressure needed. Pt understands that even with moderate weight loss, often a positive pressure device may still be necessary. We will perform surveillance t/o our visits. Bob White sleep score 19 Mar, Abnormal kidney function (ICD-10 - N28.9) Mild decrease in creatinine and GFR on most recent lab work. Unsure of previous trends. Something to be aware of we discussed this briefly in office today and how dehydration can also contribute to this but something we will be cognizant of moving forward. She does note a lack of water in her daily habits is something she will begin to work on. 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 She denies any history of cancer. [facility] Other 12-04-2023 Evaluation note* Encounter Date Diagnosis Assessment Notes Treatment Notes Treatment Clinical Notes Mar, Other Ozempic sent in error, called to [facility] pharmacy to cancel script. [facility] Other 11-30-2023 Evaluation note* Encounter Date Diagnosis Assessment Notes Treatment Notes Treatment Clinical Notes Feb, Nonalcoholic fatty liver disease (ICD-10 - K76.0) [facility] Other 11-30-2023 Evaluation note* Encounter Date Diagnosis Assessment Notes Treatment Notes Treatment Clinical Notes Feb, Mixed hyperlipidemia (ICD-10 - E78.2) Feb, Stage 3a chronic kidney disease (ICD-10 - N18.31) [facility] Other 11-22-2023 Evaluation note* Encounter Date Diagnosis Assessment Notes Treatment Notes Treatment Clinical Notes Feb, Primary hypertension (ICD-10 - I10) TO goal. Prior to your visit today we reviewed your chart and outlined the tetsing and treatment needed for your care. We discussed the possible complications of high blood pressure, including increased risk for heart disease, stroke, and kidney disease. Our goal is to keep your blood pressure below 130/85 (an preferably < 120/80) and maintain a healthy weight with a BMI less than 26. We are working together to acheive these goals with the following plan; healthier diet, increased activity and exercise, understanding your medicaitons, and your complaince. You have been given relevant education handouts. Feb, History of partial thyroidectomy (ICD-10 - E89.0) DUe for labs. Did follow with Dr. Kyle hall partial thryroidectomy.. Feb, Gastroesophageal reflux disease with esophagitis without hemorrhage (ICD-10 - K21.00) Reflux symptoms remain unchanged. Discussed the importance of meal content. They should avoid overeating and eating meals late in the evening. Take medication as directed and we will continue to monitor. Feb, Iron deficiency (ICD-10 - E61.1) Will recheck labs. Does follow with hematology. Feb, Cigarette nicotine dependence without complication (ICD-10 - F17.210) We discussed possible complications of smoking including risk of heart disease, stroke, lung disease, and increase risk of cancer. Your goal is to quit smoking. The availability, risks, and benefits of medication used to treat nicotine addiction as releveant to you have been discussed. We are working together to achieve these goals with the following plan; barriers to these goals have been discussed. You have been given relevant education handouts and a summary of your care plan. Your next follow-up visit for this problem is six months, we will continue to ask progress for quitting and willingness to quit at each appointment. Feb, Morbid (severe) obesity due to excess calories (ICD-10 - E66.01) Referral placed to Weight loss clinic. Patient is advised to work on healthy diet choices and appropriate servings, weight control, regular exercise as directed, reduced fat intake, and salt avoidance. Patient voiced understanding of this and agrees to this plan. Feb, Body mass index [BMI ] 40.0-44.9, adult (ICD-10 - Z68.41) [facility] Other 11-09-2023 Miscellaneous Notes* Telephone Encounter - Sylvia Amador RN - 02/14/2023 3:01 PM EST Called and spoke to patient about the changed appointment. She verbalized understanding and states that date and time will work. No further questions. Sylvia Amador RN * Telephone Encounter - Sylvia Amador RN - 02/14/2023 8:46 AM EST PSS: I have called and sent a InVision message to this patient. Can we schedule an appointment with labs and notify patient. Thanks. Sylvia Amador RN * Telephone Encounter - Fatou Dutton PA-C - 02/14/2023 8:32 AM EST Please call and schedule patient for a follow up and labs. She has not been seen since 2020 and should have a follow up. Fatou Dutton PA-C documented in this encounterA[facility] NoteHNO ID: [id number] Author: YASIR Gonzales Service: ? Author Type: Fleet Coordinator Type: Progress Notes Filed: 09/24/2022 4:17 PM Note Text: Patient appears on the [facility] Time Treatment List for a non-oncology treatment. No psychosocial assessment is indicated. ROLDAN Gonzales-[facility]06-19-2023 History of Present illness Narrative* YASIR Gonzales - 09/24/2022 4:16 PM EDT Patient appears on the [facility] Time Treatment List for a non-oncology treatment. No psychosocial assessment is indicated. SUNNY Gonzales documented in this encounterA[facility]06-12-2023 NoteHNO ID: [id number] Author: Wendy Segura RN Service: ? Author Type: Registered Nurse Type: Progress Notes Filed: 09/17/2022 11:35 AM Note Text: CMP drawn X2 with label rewinder reporting that sample was hemolyzed. 2nd reporting was after pt was discharged. CMP reordered to be drawn when pt returns next week for additional iron.[facility]06-08-2023 Miscellaneous Notes* Telephone Encounter - Cherri Dickson RN - 09/13/2022 10:29 AM EDT Juan Luis Chacon, we are working on the authorization for your infusion. Someone will call you once we can get you scheduled. Take Care, Cherri Dickson, RN * Telephone Encounter - Yanely Yañez - 09/12/2022 10:53 AM EDT I will send to pharmacy/auth team to double check. Thanks Fatou! Yanely Yañez * Telephone Encounter - Fatou Dutton PA-C - 09/12/2022 9:54 AM EDT Venofer orders placed. Patient will need to be made aware that it will be weekly x 4 because she has only every had monoferic and will likely think she is done after one dose. Fatou Dutton PA-C * Telephone Encounter - Yanely Yañez - 09/12/2022 9:20 AM EDT Patient's insurance will not approve for Monoferric. Can you place another iron order? Thanks! Yanely Yañez * Telephone Encounter - Fatou Dutton PA-C - 09/12/2022 8:23 AM EDT Cmp order placed and monoferic order placed Fatou Dutton PA-C documented in this encounterA[facility] Miscellaneous Notes* Telephone Encounter - Tiarra Zambrano LPN - 07/05/2021 1:15 PM EDT VM left for patient to call our office and also to check message in InVision. Please see message noted below by Dr. Freire * Telephone Encounter - Marquise Freire DO - 07/05/2021 12:35 PM EDT Please ask the patient if her symptoms are worsening. If they are she should proceed to the ED for immediate evaluation. However, if she has been doing ok over the last couple weeks then I will see her at our appointment. Signed: Marquise Freire DO July 05, 2021 This note was partially generated using [employer] voice recognition system, and there may be some incorrect words, spellings, and punctuation that were not noted in checking the note before saving. * Telephone Encounter - Tiarra Zambrano LPN - 06/19/2021 1:52 PM EDT Spoke with patient. Started with Walking up 15-20 steps. Pt. felt SOB, heart racing and LT leg numbness that changed toa burning sensation. Patient states once she sat down symptoms stopped after about 5-8 minutes States the more she is on her feet the more burning to her LT leg. Patient did not proceed to ED because symptoms haven't persisted. Last OV: 10/2020 Future appt: 07/25/2021 * Telephone Encounter - Cash Núñez RN - 06/16/2021 2:59 PM EST Received message the patient is having chest pain. Attempted to contact patient and obtain below information. Left phone number to return our call. Is the pain constant or does it come and go? What makes it worse? What makes it better? Describe the pain (sharp, burning, pressure)? Does the pain travel anywhere (up jaw, down arm, to the back)? How long does it last? Is is associated with anything else (dizziness, nausea, vomiting, palpitations, sweating)? STANISLAW 10/28/[address] Freire * Telephone Encounter - Shanna Gifford - 06/16/2021 2:05 PM EST Patient sent a [employer] message: having heart issues on 06/16/2021. I called and spoke to patient, I seen a cancellation with Dr. Freire on 07/25/2021 (patient currently scheduled and on wait list) I offered sooner availability with Ann Marie Camejo CNP and Cassie Hernandez CNP patient declined and said they would rather wait to see Dr. Freire. Patient said they were walking up a flight of stair and they were having chest pain and had numbness in their legs. Please advise, thank you. [facility] noteNo assessment information availableSt. [facility] Hospital Work Phone: Evaluation note* Diagnosis Iron deficiency anemia due to chronic blood loss- Primary Iron deficiency anemia secondary to blood loss (chronic) documented in this encounter [facility] note* Diagnosis Iron deficiency anemia due to chronic blood loss- Primary Iron deficiency anemia secondary to blood loss (chronic) documented in this encounter [facility] note* Diagnosis Iron deficiency anemia due to chronic blood loss- Primary Iron deficiency anemia secondary to blood loss (chronic) documented in this encounter [facility] note* Diagnosis Iron deficiency anemia due to chronic blood loss- Primary Iron deficiency anemia secondary to blood loss (chronic) documented in this encounter [facility] note* Diagnosis Iron deficiency anemia due to chronic blood loss- Primary Iron deficiency anemia secondary to blood loss (chronic) Malaise and fatigue Other malaise and fatigue documented in this encounter [facility] noteNo InformationNort [employer] Other History general Narrative - Reported* Type Description Date Medical History HTN (hypertension) Medical History Heart palpitations Medical History Diverticulosis Medical History Hemorrhoids Medical History History of thyroid nodule Medical History Endometrial thickening on ultras ound Medical History Postmenopausal bleeding Medical History Depression Medical History Hypercholesterolemia Medical History GERD (gastroesophageal reflux di sease) Medical History Iron deficiency anemia Medical History Hypothyroidism Medical History RYAN (obstructive sleep apnea) Medical History Obesity Medical History Nicotine dependence Medical History Nontoxic multinodular goiter Medical History History of abnormal mammogram Medical History Breast mass, right Medical History Breast nodule Medical History Hx of tinnitus Medical History History of colon polyps Medical History Anxiety Medical History Chiari malformation Medical History MTHFR mutation Surgical History Cholecystectomy Surgical History Appendectomy Surgical History Salpingo-oophorectomy - ectopic , right Surgical History Ovarian cystectomy Surgical History Surgical History EGD/Colonoscopy 03/23/2015 Surgical History Right Hemithyroidectomy 05/2017 Surgical History EGD 12/20/2020 Surgical History Colonoscopy with polypectomy Surgical History Endometrial biopsy 10/2022 Hospitalization History See surgical hx [facility] Other History general Narrative - Reported* Type Description Date Medical History HTN (hypertension) Medical History Heart palpitations Medical History Diverticulosis Medical History Hemorrhoids Medical History History of thyroid nodule Medical History Endometrial thickening on ultras ound Medical History Postmenopausal bleeding Medical History Depression Medical History Hypercholesterolemia Medical History GERD (gastroesophageal reflux di sease) Medical History Iron deficiency anemia Medical History Hypothyroidism Medical History RYAN (obstructive sleep apnea) Medical History Obesity Medical History Nicotine dependence Medical History Nontoxic multinodular goiter Medical History History of abnormal mammogram Medical History Breast mass, right Medical History Breast nodule Medical History Hx of tinnitus Medical History History of colon polyps Medical History Anxiety Medical History Chiari malformation Medical History MTHFR mutation Medical History Gestational diabetes in the past Medical History Fatty Liver Medical History Day time fatigue Medical History Prediabetes Medical History Anxiety Surgical History Cholecystectomy Surgical History Appendectomy Surgical History Salpingo-oophorectomy - ectopic , right Surgical History Ovarian cystectomy Surgical History Surgical History EGD/Colonoscopy 03/23/2015 Surgical History Right Hemithyroidectomy 05/2017 Surgical History EGD 12/20/2020 Surgical History Colonoscopy with polypectomy Surgical History Endometrial biopsy 10/2022 Surgical History [place] teeth extraction Surgical History Full teeth extraction Hospitalization History See surgical hx [facility] Other Reason for visit NarrativeReferral Sylvia Chavez [facility] Other Summary Purpose Family History Relationship Condition Age at Onset Recorded Date/T dickson Not Specified No pertinent family history Unknown Advance Directives Advance Directive Response Recorded Date/ Time Advance Directives No July 18, 2 022 11:11am Chief Complaint and Reason for Visit Chief Complaint Chest Wall Cyst Chest Wall Cyst Medications Administered Section Inactive Administered Medications - up to 3 most recent administrations Medication Order MAR Action Action Date Dose Rate Site iron sucrose 200 mg in NaCl 0.9% 100ml (VENOFER) 200 mg, INTRAVENOUS, at 400 mL/hr, Administer over 15 Minutes, ONCE, 1 dose, On Patty 10/04/22 at 1030, Please conduct a 30 minute post dose observation. New Bag/Syringe/Bottle 10/04/2022 10:40 AM EDT 200 mg 400 mL/hr Inactive Administered Medications - up to 3 most recent administrations Medication Order MAR Action Action Date Dose Rate Site iron sucrose 200 mg in NaCl 0.9% 100ml (VENOFER) 200 mg, INTRAVENOUS, at 400 mL/hr, Administer over 15 Minutes, ONCE, 1 dose, On Patty 10/11/22 at 1130, Please conduct a 30 minute post dose observation. New Bag/Syringe/Bottle 10/11/2022 11:21 AM EDT 200 mg 400 mL/hr Additional Source Comments Source Comments (unrecognize d section and content) In the event this informatio n is protected by the Federal Confidentiality of Alcohol and Drug Abuse Patient Records regulations: The Federal rules restrict any use of the information to criminally investigate or prosecute any alcohol or drug abuse patient.[facility] the event this information is protected by the Federal Confidentiality of Alcohol and Drug Abuse Patient Records regulations: The Federal rules restrict any use of the information to criminally investigate or prosecute any alcohol or drug abuse patient.[facility] HospitalIn the event this information is protected by the Federal Confidentiality of Alcohol and Drug Abuse Patient Records regulations: The Federal rules restrict any use of the information to criminally investigate or prosecute any alcohol or drug abuse patient.[facility] HospitalIn the event this information is protected by the Federal Confidentiality of Alcohol and Drug Abuse Patient Records regulations: The Federal rules restrict any use of the information to criminally investigate or prosecute any alcohol or drug abuse patient.[facility] HospitalIn the event this information is protected by the Federal Confidentiality of Alcohol and Drug Abuse Patient Records regulations: The Federal rules restrict any use of the information to criminally investigate or prosecute any alcohol or drug abuse patient.[facility] HospitalIn the event this information is protected by the Federal Confidentiality of Alcohol and Drug Abuse Patient Records regulations: The Federal rules restrict any use of the information to criminally investigate or prosecute any alcohol or drug abuse patient.[facility] HospitalIn the event this information is protected by the Federal Confidentiality of Alcohol and Drug Abuse Patient Records regulations: The Federal rules restrict any use of the information to criminally investigate or prosecute any alcohol or drug abuse patient.[facility] the event this information is protected by the Federal Confidentiality of Alcohol and Drug Abuse Patient Records regulations: The Federal rules restrict any use of the information to criminally investigate or prosecute any alcohol or drug abuse patient.[facility] INFORMATION SOURCE (unrecogn ized section and content) DATE CREATED AUTHOR 10/04/2020 [facility] DATE CREATED AUTHOR AUTHOR'S ORGANIZ ATION 07/31/2022 [facility] DATE CREATED AUTHOR AUTHOR'S ORGANIZ ATION 10/12/2022 [facility] DATE CREATED AUTHOR AUTHOR'S ORGANIZ ATION 03/12/2023 [facility] Reason for Visit (unrecogniz ed section and content) [employer] not covered Reason Comments Appointment Specialty Diagnoses / Procedures Referred By Contac t Referred To Contact Diagnoses Iron deficiency anemia due to chronic blood loss Procedures IRON SUCROSE INJECTION PER 1 MG Fatou Dutton PA-C [address] [place] [address] [place] [address] [facility] [address] [place] [address] Referral ID Status Reason Start Date Expiration Date V isits Requested Visits Authorized [id number] Authorized 09/12/2022 04/07/2023 1 99 Care Teams (unrecognized sec tion and content) Acoustical Tile Patternmaker Relationship Specialty Start Date End Date Maury Wallace Sr. PCP - General Family Practice 02/16/15 Team Status: Inactive Member Role Status Dates Maury Wallace , Primary Care Provider Active Chris Borden DO Attending Provider Active Team Status: Active Member Role Status Dates Maury Wallace , Primary Care Provider Active Acoustical Tile Patternmaker Relationship Specialty Start Date End Date Maury Wallace Sr. PCP - [facility] 02/16/15 Acoustical Tile Patternmaker Relationship Specialty Start Date End Date Maury Wallace Sr. PCP - [facility] 02/16/15 Acoustical Tile Patternmaker Relationship Specialty Start Date End Date Maury Wallace Sr. PCP - [facility] 02/16/15 Acoustical Tile Patternmaker Relationship Specialty Start Date End Date Maury Wallace Sr. PCP - [facility] 02/16/15 Acoustical Tile Patternmaker Relationship Specialty Start Date End Date Maury Wallace Sr., PCP - General Family Medicine 02/16/15 Goals (unrecognized section and content) Goals may be documented in a n alternate sectionNo InformationNo InformationNo InformationNo InformationNo InformationNo InformationNo InformationNo Information FOR RECORDS PERTAINING TO PATIENTS WHO ARE OR HAVE BEEN ENROLLED IN A CHEMICAL DEPENDENCY/SUBSTANCEABUSE PROGRAM, SOME INFORMATION MAY BE OMITTED. This clinical summary was aggregated from multiple sources. Caution should be exercised in using it in the provision of clinical care. This summary normalizes information from multiple sources, and as a consequence, information in this document may materially change the coding, format and clinical context of patient data. In addition, data may be omitted in some cases. CLINICAL DECISIONS SHOULD BE BASED ON THE PRIMARY CLINICAL RECORDS. [facility] [employer] [facility]. provides no warranty or guarantee of the accuracy or completeness of information in this document.
--- NOTE | 2023-04-23 09:30 | XR_ITS ---
The [address] [address] Patient Name: MARIA FERNANDA VALLECILLO MRN: [id number] date: 1970 Sex: F Assigned Patient Location: ER Current Patient Location: ER Accession/Order Number: [id number] Exam Date: 04/23/2023 09:55 Report Date: 04/23/2023 10:08 At the request of: TABITHA WHITTEN Procedure: XR chest 2V EXAM: XR chest 2V HISTORY: cp COMPARISON: None. TECHNIQUE: PA and lateral views of the chest. FINDINGS: The cardiomediastinal silhouette is normal. No focal consolidation is identified. There is no pneumothorax. No pleural effusion is noted. The osseous structures are intact. XR/XR chest 2V IMPRESSION: No acute cardiopulmonary process. Electronically authenticated by: ABNER BERNABE Date: 04/23/2023 10:08
--- NOTE | 2023-04-23 09:30 | ECG_ITS ---
The [facility] Test Date: 2023-04-23 Pat Name: MARIA EFRNANDA VALLECILLO Department: Room: - Gender: Female Processing Rep: : 1970 Requested By: [id number] Order Number: [id number] Reading MD: SANDRA MYERS Measurements Intervals [place] Rate: 83 P: 45 IL: 162 QRS: 36 QRSD: 86 T: 43 QT: 368 QTc: 408 Interpretive Statements 1100 Sinus rhythm 8102 Low QRS voltage in chest leads 9120 atypical ECG Compared to ECG 01/04/2019 11:53:24 No significant changes Electronically Signed On 04-24-2023 6:49:58 EST by SANDRA MYERS
--- NOTE | 2023-04-23 09:50 | ECG_ITS ---
The [facility] Test Date: 2023-04-23 Pat Name: MARIA FERNANDA VALLECILLO Department: Room: - Gender: Female Performance Specialist: : 1970 Requested By: [id number] Order Number: [id number] Reading MD: SANDRA MYERS Measurements Intervals [place] Rate: 79 P: 44 AR: 156 QRS: 43 QRSD: 86 T: 45 QT: 376 QTc: 411 Interpretive Statements 1100 Sinus rhythm 8102 Low QRS voltage in chest leads 9120 atypical ECG Compared to ECG 04/23/2023 09:08:44 No significant changes Electronically Signed On 04-24-2023 6:51:30 EST by SANDRA MYERS
[2023-04-23 09:59] LABS: Basophils Percent Auto 0.5 % (0.2-2.0); Eosinophils Absolute Auto 0.1 10^3/uL (0.0-0.7); Eosinophils Percent Auto 1.3 % (0.9-7.0); Hemoglobin 15.5 g/dL (12.0-16.0); Immature Granulocytes Abs Auto 0.02 10^3/uL (0.00-0.03); Immature Granulocytes Pct Auto 0.3 % (0.0-0.5); Lymphocytes Absolute Auto 2.7 10^3/uL (1.2-3.8); Lymphocytes Percent Auto 35.6 % (20.5-60.0); Mean Corpuscular HGB Conc 33.7 g/dL (29.9-35.2); Mean Corpuscular Hemoglobin 29.5 pg (26.7-34.0); Mean Corpuscular Volume 87.5 fL (81.0-99.0); Mean Platelet Volume 9.4 fL (9.5-13.5); Monocytes Absolute Auto 0.4 10^3/uL (0.3-0.8); Monocytes Percent Auto 4.6 % (1.7-12.0); Neutrophils Absolute Auto 4.4 10^3/uL (1.4-6.5); Neutrophils Percent Auto 57.7 % (43.0-75.0); Platelet Count 298 10^3/uL (150-450); Red Blood Count 5.26 10^6/uL (4.20-5.40); White Blood Count 7.7 10^3/uL (4.0-11.0)
[2023-04-23 10:10] LABS: Alanine Aminotransferase 34 U/L (14-59); Albumin Globulin Ratio 0.9; Albumin Level 3.4 g/dL (3.4-5.0); Alkaline Phosphatase 86 U/L (46-116); Anion Gap 14.1; Aspartate Amino Transferase 18 U/L (15-37); BUN Creatinine Ratio 14.7; Bilirubin Total 0.3 mg/dL (0.2-1.0); Carbon Dioxide 27.7 mmol/L (21.0-32.0); Chloride 99 mmol/L (98-107); Estimated GFR (African America 59 (>=60); Estimated GFR (Non-African Ame 49 (>=60); Glucose 109 mg/dL (74-106); Potassium 3.8 mmol/L (3.5-5.1); Sodium 137 mmol/L (136-145); Total Protein 7.4 g/dL (6.4-8.2)
[2023-04-23 10:18] LABS: TSH W/ REFLEX FT4 1.587 uIU/mL (0.358-3.740); Troponin I High Sensitivity 4.9 pg/mL (4.0-51.3)
[2023-04-23] MEDS: ASPIRIN 81 MG TAB.CHEW 162 MG PO (10:54)
--- NOTE | 2023-04-23 10:56 | ED.GENADUL1 ---
HPI - General Adult General Chief complaint: Arrhythmia/Palpitations Stated complaint: FAST HEART RATE Time Seen by Provider: 04/23/23 09:30 Source: patient Mode of arrival: walk-in Limitations: no limitations History of Present Illness HPI narrative: Patient is a 52-year-old female who is presenting to the Emergency Room today with chief complaint of palpitations and feeling like she was looking at her pulse to the right side of her neck this morning at home and a near. Patient is a history of anxiety, she is currently seeing a therapist until she can see his psychiatrist for anxiety can be treated. Patient has no chest pain, tightness, no shortness of breath. Patient stated that she felt twitching to the right side of her neck, patient went to look at herself in the mirror and thought that she was seen her heartbeat/pulse to the right side of her neck in the mirror. This will last a few minutes and then go away, this happen 3 different times this morning so patient came into the Emergency Room for evaluation. Patient states that she suffers from anxiety., She is not appropriate treated yet but she is in the process of seeing a therapist and eventually will be seeing a psychiatrist as well. Patient is admittedly anxious at this time. I educated the patient where her internal jugular an extra jugular veins are, and where her carotid artery is and how to titrate deep in the tissue and be difficult to see pulsations to the side of her neck. She could see external jugular but that does not pulsate. This could be muscle twitching. Brief anatomy discussion of the anatomy of her neck was discussed at bedside, patient was appreciative of this. Patient states that she wears BiPAP at nighttime, she is a belly sleeper, and she had her face and neck turned to the side last night which she normally does not do, patient was wondering this could be muscle pull or twitching as well which could be a differential diagnosis. . All systems are negative except as noted/marked. All systems reviewed and otherwise negative. . Nurses note and vital signs reviewed and patient is not hypoxic. General: The patient appears well and in no apparent distress. Patient is resting comfortably on cart. Patient is not toxic, lethargic, or listless Skin: Warm, dry, no pallor noted. There is no rash noted. No petechiae, purpura. Head: Normocephalic, atraumatic Eye: Normal conjunctiva, no drainage, EOMI. PERRL Ears, Nose, Mouth, and Throat: oral mucosa is moist. Nares patent. Mouth without vesicles. Cardiovascular: Regular Rate and Rhythm, no murmur, gallop, rub Respiratory: Patient is in no distress, no accessory muscle use, lungs are clear to auscultation, no wheezing, rales or rhonchi Back: non-tender, no CVA tenderness bilaterally to percussion. No CT LS midline pain GI: soft, Obese, no tenderness to palpation, no masses appreciated. No rebound, guarding, or rigidity noted. No flank pain bilateral, No distention Musculoskeletal: Patient has full range of motion of all of the extremities, no motor, sensory, or focal neurological deficits Neurological: A&O x3, normal speech Psychiatric: Cooperative Related Data Allergies Allergy/AdvReac Type Severity Reaction Status Date / Time meperidine [From Demerol] Allergy Severe Anaphylaxis Verified 04/23/23 09:10 clindamycin Allergy Verified 04/23/23 09:10 [facility] Social History Smoking status: Heavy tobacco smoker Exam Constitutional Vital Signs, click to edit/add: Last Vital Signs Temp 97.8 F 04/23/23 09:10 Pulse 100 H 04/23/23 09:10 Resp 18 04/23/23 09:10 BP 150/86 H 04/23/23 09:10 Pulse Ox 95 04/23/23 09:10 O2 Del Method Room Air 04/23/23 09:10 Course Vital Signs Vital signs: Vital Signs Temperature 97.8 F 04/23/23 09:10 Pulse Rate 100 H 04/23/23 09:10 Respiratory Rate 18 04/23/23 09:10 Blood Pressure 150/86 H 04/23/23 09:10 Pulse Oximetry 95 04/23/23 09:10 Oxygen Delivery Method Room Air 04/23/23 09:10 Temperature 97.8 F 04/23/23 09:10 Pulse Rate 100 H 04/23/23 09:10 Respiratory Rate 18 04/23/23 09:10 Blood Pressure 150/86 H 04/23/23 09:10 Pulse Oximetry 95 04/23/23 09:10 Oxygen Delivery Method Room Air 04/23/23 09:10 Medical Decision Making MDM Narrative Medical decision making narrative: Patient looks well. Education was done on the anatomy of her neck and the possibility of her see muscle twitching versus pulsations In the right side of her neck. Patient looks electrolytes within normal limits. EKG, x-ray and labs within normal limits. Patient was given IV fluids as well. Thyroid normal. Patient has a history of a right partial thyroidectomy. Patient does not take Synthroid or any thyroid medicine. Patient will follow-up with PCP, no questions at discharge. Lab Data Labs: Lab Results 04/23/23 Range/Units 09:25 WBC 7.7 (4.0-11.0) 10^3/uL RBC 5.26 (4.20-5.40) 10^6/uL Hgb 15.5 (12.0-16.0) g/dL Hct 46.0 (36.0-48.0) % MCV 87.5 (81.0-99.0) fL MCH 29.5 (26.7-34.0) pg MCHC 33.7 (29.9-35.2) g/dL RDW 13.0 (11.0-15.0) % Plt Count 298 (150-450) 10^3/uL MPV 9.4 L (9.5-13.5) fL Neut % (Auto) 57.7 (43.0-75.0) % Lymph % (Auto) 35.6 (20.5-60.0) % [place]uming % (Auto) 4.6 (1.7-12.0) % Eos % (Auto) 1.3 (0.9-7.0) % Baso % (Auto) 0.5 (0.2-2.0) % Neut # (Auto) 4.4 (1.4-6.5) 10^3/uL Lymph # (Auto) 2.7 (1.2-3.8) 10^3/uL Cuming # (Auto) 0.4 (0.3-0.8) 10^3/uL Eos # (Auto) 0.1 (0.0-0.7) 10^3/uL Baso # (Auto) 0.0 (0.0-0.1) 10^3/uL Abs Immat Gran (auto) 0.02 (0.00-0.03) 10^3/uL Imm/Tot Granulo (auto) 0.3 (0.0-0.5) % Sodium 137 (136-145) mmol/L Potassium 3.8 (3.5-5.1) mmol/L Chloride 99 (98-107) mmol/L Carbon Dioxide 27.7 (21.0-32.0) mmol/L Anion Gap 14.1 BUN 17.0 (7.0-18.0) mg/dL Creatinine 1.16 H (0.55-1.02) mg/dL Est GFR ( Amer) 59 L (>=60) Est GFR (Non-Af Amer) 49 L (>=60) BUN/Creatinine Ratio 14.7 Glucose 109 H (74-106) mg/dL Calcium 9.0 (8.5-10.1) mg/dL Total Bilirubin 0.3 (0.2-1.0) mg/dL AST 18 (15-37) U/L ALT 34 (14-59) U/L Alkaline Phosphatase 86 (46-116) U/L Troponin I High Sens 4.9 (4.0-51.3) pg/mL NT-Pro-B Natriuret Pep 63.0 (<=900.0) pg/mL Total Protein 7.4 (6.4-8.2) g/dL Albumin 3.4 (3.4-5.0) g/dL Globulin 4.0 g/dL Albumin/Globulin Ratio 0.9 TSH & Free T4 Interp 1.587 (0.358-3.740) uIU/mL ECG Data Attestation: I personally reviewed and interpreted this ECG as follows: (EKG interpretation) Interpretation: EKG #1. Normal sinus rhythm at 83 beats a minute. Normal axis deviation. No acute ST elevation, no acute ectopy. QTC of 408. EKG #2. Normal sinus rhythm at 79 beats a minute. Normal axis deviation. No acute ST elevation, no acute ectopy. The affected noted. QTC of 411. Discharge Plan Discharge Chief Complaint: Arrhythmia/Palpitations Clinical Impression: Palpitations, Anxiety Patient Disposition: Home, Self-Care Condition: Good Instructions: Heart Palpitations (ED), Anxiety (ED) Additional Instructions: Increase fluids at home, continue following up with your therapist and eventually her psychiatrist. Stand Alone Forms: Portal Instructions Referrals: Physician,Non-Staff, MD [Primary Care Provider] - 1 week
== END 2023-04-23 11:11 | disposition home or self-care (01) ==
PROVIDERS: Emergency Provider Emergency Medicine
DX: R00.2 Palpitations (principal); F41.9 Anxiety disorder, unspecified; F17.210 Nicotine dependence, cigarettes, uncomplicated; E89.0 Postprocedural hypothyroidism
CPT/HCPCS: 36415; 71046; 80053; 83880; 84443; 84484; 85025; 93005; 99285

== ENCOUNTER 2023-05-21 20:52 | Outpatient (OUT) | payer OTHER, SELFPAY ==
--- OUTSIDE RECORDS SUMMARY | 2023-05-21 20:54 | XMS_ITS | CCD ---
Author Name Unknown Address [address] [place] [address] Organization [facility] Care Team Providers Care Claims Representative Name Role Phone House Sr., Maury Snell Primary Care Provider Himanshu, DO Mendiola Primary Care Provider [phone] DO Chris Borden Attending Provider [place], DR MENDIOLA Admitting Unavailable HOUSE, DR MENDIOLA [...] YOSEF ZHANG Referring Unavailable HOUSE SR, MA[facility]Y [facility] Primary Care Unavai lable CHIARA DUTTONY M Referring Unavailable HOUSE SR, [facility] Primary Care Unavai lable HOUSE SR, [facility] Primary Care Unavai lable CHIARA DUTTONY M Referring Unavailable CHIARA DUTTONY M Referring Unavailable HOUSE SR, [facility] Primary Care Unavai labvicky DUTTON FATOU M Referring Unavailable HOUSE SR, MAURY [facility] Unavai lable HOUSE SR, MA[facility] Primary [facility] Unavai lable House Sr., Maury [facility] Prov ider Sylvia Chavez Unavailable [phone] Zoila Grant Unavailable Luisa Fabian Unavailable Dani Lord Admitting Unavailab Dani Rollins Attending Unavailab Sylvia Shelley Primary Care Unavailable Sylvia Chavez Admitting Unavailable Sylvia Chavez Primary Care Unavailable Sylvia Chavez Attending Unavailable Allergies Allergy Classification Reported Allergen(s) Allergy Type Date of Onset Reaction(s) Facility Opioid Agonists (1 source) Meperidine Drug Allergy 08-26-2020 Unknown [facility] (20 sources) Meperidine; Translations: [MEPERIDINE] Drug Allergy 08-26-2020 Unknown [facility] (13 sources) Clindamycin; Translations: [clindamycin] Drug Allergy 07-20-2021 Rash, Unknown [facility] (1 source) Meperidine Drug Allergy [facility] (1 source) Meperidine Drug Allergy 07-20-2021 [facility] Medications Current Medications Medication Drug Class(es) Dates Sig (Normalized) Sig (Original) 0.5 ML semaglutide 0.5 MG/ML Auto-Injector [Wegovy] (3 sources) Start: 03-11-2023 Wegovy 0.25 MG/0.5ML 0.25mg once weekly for weeks 1-4 Subcutaneous once weekly for 28 days Aware medication is backordered at this time. Assessing insurance coverage. Mar, Active aspirin 81 mg oral tablet (19 sources) Platelet Aggregation Inhibitor, Nonsteroidal Anti-inflammatory Drug [...] pocket please do not fill. Mar, Active busPIRone hydrochloride 15 mg oral tablet (2 sources) take 1 tablet by mouth every twenty-four hours busPIRone HCl 15 MG 1 tablet Orally daily for 21 days Active famotidine 20 mg oral tablet (1 source) Histamine-2 Receptor Antagonist Start: 022 take 20 mg by mouth once daily in the morning Famotidine Active 20 MG PO Every morning July 20, 2021 3:44pm fenofibrate 54 mg oral tablet (8 sources) Peroxisome Proliferator Receptor alpha Agonist Start: 023 take 1 tablet by mouth every twenty-four hours Fenofibrate 54 MG 1 tablet with food Orally Once a day for 90 days Mar, Active hydroCHLOROthiazide 25 mg / lisinopril 20 mg oral tablet (19 sources) Thiazide Diuretic, Angiotensin Converting Enzyme Inhibitor Start: 022 take 1 tablet by mouth once daily in the morning Lisinopril-Hydroch lorothiazide Active 1 TAB PO Every morning July 20, 2021 3:44pm Start: 08-30-2020 lisinopril-hyd roCHLOROthiazide (PRINZIDE, ZESTORETIC) 20-25 mg per tablet 24 hr nicotine 0.875 mg/hr transdermal system (11 sources) Cholinergic Nicotinic Agonist Start: 02-27-2023 Nicotine [...] in NaCl (PF) 0.9% 10 mL injection ([employer]) (1 source) Start: 09-01-2020 End: 12-01-2021 perflutren lipid microspheres 1.3 mL in NaCl (PF) 0.9% 10 mL injection (DEFINITY) 125 ml sodium chloride 9 mg/ml prefilled syringe (1 source) Start: 09-01-2020 End: 12-01-2021 sodium chloride 0.9 % (flush) 10 mL (BD POSIFLUSH) wegovy 0.25 mg/0.5ml solution auto-injector (1 source) Start: [...] tablet Orally Once a day (Femhrt 04/12) Not-Taking omeprazole 20 mg delayed release oral capsule (15 sources) Proton Pump Inhibitor Start: 12-20-2020 take 1 capsule by mouth twice daily before mealtime omeprazole (PRILOSEC) 20 mg capsule Take 1 capsule by mouth twice daily before meals. 60 capsule 0 12/20/2020 Active take 1 capsule by mo [facility] every twenty-four hours Omeprazole 20 MG 1 capsule Orally Once a day for 90 days Active Comment on above: Take 1 capsule by mo [facility] twice daily before meals. Problems Active Problems Problem Classification Problem Date Documented Da te Episodic/Chronic Abdominal pain (16 sources) Abdominal pain; Translations: [Unspecified abdominal pain] Episodic Administrative/social admission (1 source) Persons encountering health services in other specified circumstances Episodic Anxiety disorders (10 sources) Anxiety; Translations: [Anxiety disorder, unspecified] Chronic Chronic kidney disease (8 sources) Chronic kidney disease stage 3A ; Translations: [Stage 3a chronic kidney disease] Chronic Coma; stupor; and brain damage (9 sources) Excessive daytime sleepiness - normal night sleep; Translations: [Somnolence] Episodic Complications of surgical procedures or medical care (12 sources) History of subtotal thyroidectomy; Translations: [Postprocedural hypothyroidism] Chronic Deficiency and other anemia (12 sources) Iron deficiency anemia due to blood loss; Translations: [Iron deficiency anemia secondary to blood loss (chronic)] Onset: 08-31-2020 08-31-2020 Chronic Diabetes mellitus without complication (12 sources) Prediabetes; Translations: [Other abnormal glucose] Episodic Disorders of lipid metabolism (12 sources) Mixed hyperlipidemia; Translations: [Mixed hyperlipidemia] Chronic Diverticulosis and diverticulitis (11 sources) Diverticular disease of colon; Translations: [Diverticulosis of large intestine without perforation or abscess without bleeding] Chronic Esophageal disorders (11 sources) Gastro-esophageal reflux disease with esophagitis; Translations: [Gastroesophageal reflux disease with esophagitis without hemorrhage] Chronic Essential hypertension (14 sources) Essential hypertension; Translations: [Essential (primary) hypertension] Chronic Hemorrhoids (8 sources) Hemorrhoids; Translations: [Unspecified hemorrhoids] Episodic Malaise and fatigue (2 sources) Other fatigue; Translations: [Malaise and fatigue] Onset: 02-28-2022 02-14-2023 Episodic Menopausal disorders (4 sources) Postmenopausal bleeding; Translations: [POSTMENOPAUSAL BLEEDING] Onset: 07-27-2022 Chronic Mood disorders (10 sources) Major depressive disorder, single episode, unspecified; Translations: [Depression] Chronic Mood disorders (1 source) Mood disorders; Translations: [DEPRESSION UNSPECIFIED] Onset: 02-28-2022 Nausea and vomiting (16 sources) Nausea and vomiting; Translations: [Nausea with vomiting, unspecified] Episodic Nutritional deficiencies (1 source) Iron deficiency Episodic Other diseases of kidney and ureters (3 sources) Disorder of kidney and ureter, unspecified Episodic Other gastrointestinal disorders (8 sources) Constipation; Translations: [Constipation, unspecified] Episodic Other gastrointestinal disorders (8 sources) Diarrhea; Translations: [Diarrhea, unspecified] Episodic Other gastrointestinal disorders (11 sources) Constipation alternates with diarrhea; Translations: [Other specified symptoms and signs involving the digestive system and abdomen] Episodic Other liver diseases (13 sources) Fatty (change of) liver, not elsewhere classified; Translations: [Nonalcoholic fatty liver disease] Chronic Other lower respiratory disease (1 source) Shortness of breath; Translations: [SHORTNESS OF BREATH] Onset: 07-30-2022 Episodic Other lower respiratory disease (1 source) Snoring Episodic Other lower respiratory disease (1 source) Other abnormalities of breathing Episodic Other nervous system disorders (3 sources) Muscle twitch; Translations: [Fasciculation] Episodic Other nervous system disorders (1 source) Fasciculation Episodic Other nutritional; endocrine; and metabolic disorders (20 sources) Body mass index 40+ - severely obese; Translations: [Morbid (severe) obesity due to excess calories] Chronic Other nutritional; endocrine; and metabolic disorders (2 sources) Morbid (severe) obesity due to excess calories Chronic Other nutritional; endocrine; and metabolic disorders (1 source) Body mass index (BMI) 40.0-44.9, adult Chronic Other nutritional; endocrine; and metabolic disorders (9 sources) Obesity; Translations: [Obesity, unspecified] Chronic Other nutritional; endocrine; and metabolic disorders (3 sources) Obesity, unspecified Chronic Peripheral and visceral atherosclerosis (4 sources) Intermittent claudication; Translations: [Peripheral vascular disease, unspecified] Chronic Residual codes; unclassified (7 sources) Sleep apnea; Translations: [Sleep apnea, unspecified] Chronic Residual codes; unclassified (2 sources) Sleep apnea, unspecified Chronic Residual codes; unclassified (3 sources) Obstructive sleep apnea syndrome; Translations: [Obstructive sleep apnea (adult) (pediatric)] Chronic Residual codes; unclassified (1 source) Obstructive sleep apnea (adult) (pediatric) Chronic Residual codes; unclassified (3 sources) Frequent night waking; Translations: [Insomnia, unspecified] Episodic Residual codes; unclassified (1 source) Insomnia, unspecified Episodic Substance-related disorders (15 sources) Nicotine dependence; Translations: [Nicotine dependence, cigarettes, uncomplicated] Chronic Thyroid disorders (10 sources) Thyroid nodule; Translations: [Nontoxic single thyroid nodule] Chronic Unclassified (1 source) COUGH, UNSPECIFIED; Translations: [COUGH, UNSPECIFIED] Onset: 07-30-2022 Unclassified (2 sources) CONTACT W/AND (SUSP) EXPOS COVID-19; Translations: [CONTACT W/AND (SUSP) EXPOS COVID-19] Onset: 08-29-2021 Unclassified (1 source) Dietary counseling and surveillance; Translations: [Dietary counseling and surveillance] Onset: 05-06-2023 Viral infection (1 source) COVID-19; Translations: [COVID-19] Onset: 05-24-2022 Past or Other Problems Problem Classification Problem Date Documented Da te Episodic/Chronic Chronic kidney disease (1 source) Chronic kidney disease Deficiency and other anemia (4 sources) Anemia, unspecified; Translations: [ANEMIA UNSPECIFIED] Onset: 02-23-2022 Episodic Esophageal disorders (3 sources) Esophageal disorders Unclassified (1 source) CONTACT W/AND (SUSP) EXPOS COVID-19; Translations: [CONTACT W/AND (SUSP) EXPOS COVID-19] Onset: 08-24-2021 Results Test Name Value Interpretation Reference Range Facility A1C HEMOGLOBINon 03-11-2023 HbA1c (Bld) [Mass fraction] 6.2 % [facility] Other HbA1c (Bld) [Mass fraction]o n 03-11-2023 A1C HEMOGLOBIN Five minutes [facility] [employer] Other Comprehensive metabolic 2000 panelon 09-27-2022 Albumin [Mass/Vol] 4.5 g/dL Normal 3.9-4.9 [facility] Comment on above: Order Comment: Speci men Type: BLOOD SPECIMEN Ordering Facility: [facility] Address: [address] [address] Performed By: #### 2 4323-8 #### [facility] CLIA [id number] [address] [place] [address] 27808 ALP [Catalytic activity/Vol] 106 U/L Normal 34-123 [facility] Comment on above: Order Comment: Speci marion Type: BLOOD SPECIMEN Ordering Facility: [facility] Address: [address] [address] Performed By: #### 2 4323-8 #### [facility] CLIA [id number] [address] [place] [address] 16915 ALT [Catalytic activity/Vol] 25 U/L Normal 7-38 [facility] Comment on above: Order Comment: Neldai men Type: BLOOD SPECIMEN Ordering Facility: [facility] Address: [address] [address] Performed By: #### 2 4323-8 #### [facility] CLIA [id number] [address] [place] [address] 30874 Anion gap [Moles/Vol] 9 mmol/L Normal 9-18 [facility] Comment on above: Order Comment: Speci men Type: BLOOD SPECIMEN Ordering Facility: [facility] Address: [address] [address] Performed By: #### 2 4323-8 #### [facility] CLIA [id number] [address] [place] [address] 99536 AST [Catalytic activity/Vol] 19 U/L Normal 13-35 [facility] Comment on above: Order Comment: Speci men Type: BLOOD SPECIMEN Ordering Facility: [facility] Address: [address] [address] Performed By: #### 2 432-8 #### [facility] CLIA [id number] [address] [place] [address] 89574 Bilirubin [Mass/Vol] mg/dL Low 0.2-1.3 [facility] Comment on above: Order Comment: Speci men Type: BLOOD SPECIMEN Ordering Facility: [facility] Address: [address] [address] Performed By: #### 2 4323-8 #### [facility] CLIA [id number] [address] [place] [address] 51222 Calcium [Mass/Vol] 9.8 mg/dL Normal 8.5-10.2 [facility] Comment on above: Order Comment: Speci men Type: BLOOD SPECIMEN Ordering Facility: [facility] Address: [address] [address] Performed By: #### 2 4323-8 #### [facility] CLIA [id number] [address] [place] [address] 16638 Chloride [Moles/Vol] 99 mmol/L Normal 97-105 [facility] Comment on above: Order Comment: Speci men Type: BLOOD SPECIMEN Ordering Facility: [facility] Address: [address] [address] Performed By: #### 2 4323-8 #### [facility] CLIA [id number] [address] [place] [address] CO2 [Moles/Vol] 28 mmol/L Normal 22-30 [facility] Comment on above: Order Comment: Speci men Type: BLOOD SPECIMEN Ordering Facility: [facility] Address: [address] [place] [address] Performed By: #### 2 4323-8 #### [facility] CLIA [id number] [address] [place] [address] 30326 Creatinine [Mass/Vol] 1.09 mg/dL High 0.58-0.96 [facility] Comment on above: Order Comment: Speci men Type: BLOOD SPECIMEN Ordering Facility: [facility] Address: [address] [place] [address] Performed By: #### 2 4323-8 #### [facility] CLIA [id number] [address] [place] [address] 01881 ESTIMATED GLOMERULAR FILTRATION RATE 61 mL/min/1.73m??? Normal >=60 [facility] Comment on above: Order Comment: Speci men Type: BLOOD SPECIMEN Ordering Facility: [facility] Address: [address] [place] [address] Result Comment: Yeimy mated Glomerular Filtration Rate [...] GFR. Performed By: #### 2 4323-8 #### [facility] CLIA [id number] [address] [place] [address] 22666 Glucose [Mass/Vol] 128 mg/dL High 74-99 [facility] Comment on above: Order Comment: Speci men Type: BLOOD SPECIMEN Ordering Facility: [facility] Address: [address] [place] [address] Result Comment: The [place] Diabetes Association (ADA) provides guidance for cutoff [...] Standards of Medical Care in Diabetes 2016, [place] [employer]. Diabetes Care. 2016.39(Suppl 1). Performed By: #### 2 4323-8 #### [facility] CLIA [id number] [address] [place] [address] 26667 Potassium [Moles/Vol] 3.9 mmol/L Normal 3.7-5.1 [facility] Comment on above: Order Comment: Speci men Type: BLOOD SPECIMEN Ordering Facility: [facility] Address: [address] [address] Performed By: #### 2 4323-8 #### [facility] CLIA [id number] [address] [place] [address] 74242 Protein [Mass/Vol] 7.4 g/dL Normal 6.3-8.0 [facility] Comment on above: Order Comment: Speci men Type: BLOOD SPECIMEN Ordering Facility: [facility] Address: [address] [address] Performed By: #### 2 4323-8 #### [facility] CLIA [id number] [address] [place] [address] 93063 Sodium [Moles/Vol] 136 mmol/L Normal 136-144 [facility] Comment on above: Order Comment: Speci men Type: BLOOD SPECIMEN Ordering Facility: [facility] Address: [address] [address] Performed By: #### 2 4323-8 #### [facility] CLIA [id number] [address] [place] [address] [place] [address] Urea nitrogen [Mass/Vol] 20 mg/dL Normal 7-21 [facility] Comment on above: Order Comment: Sanjana schultz Type: BLOOD SPECIMEN Ordering Facility: [facility] Address: [place] [address] Performed By: #### 2 4323-8 #### [facility] CLIA [id number] [address] [place] [address] CNSWon 09-24-2022 CNSW Social Work (HEMASA) MARIA FERNANDA VALLECILLO ([id number]) 1970 F Date Time Provider Department 09/24/22 CASH IVORY During your visit today, we recorded the following information about you: YASIR Gonzales 09/24/2022 4:17 PM Signed Patient appears on the [facility] First Time Treatment List for a non-oncology treatment. No psychosocial assessment is indicated. ROLDAN Gonzales-S Allergies As of Date: 09/24/2022 Noted Allergy [...] Encounter Status:Closed by CASH IVORY on 09/24/22 Normal [facility] MARIA FERNANDA VALLECILLO ([id number]) 1970 F Date Time Provider Department 09/14/22 SUMMER NUGENT During your visit today, we recorded the following information about you: Summer Nugent RN 09/14/2022 4:24 PM Signed Pt is scheduled for [facility] on Saturday. Dr Zhang had originally recommended [...] Status:Closed by SUMMER NUGENT on 09/14/22 Normal [facility] CBC W Auto Differential pane l (Bld)on 09-10-2022 Basophils (Bld) [#/Vol] 0.04 10*3/uL Normal <0.11 [facility] Comment on above: Order Comment: Speci men Type: BLOOD SPECIMEN Ordering Facility: [facility] Address: [address] [address] Performed By: #### 1 4196-0, 78817-9 #### [facility] CLIA [id number] [address] [place] [address] 09834 Basophils/100 WBC (Bld) 0.5 % Normal [facility] Comment on above: Order Comment: Speci men Type: BLOOD SPECIMEN Ordering Facility: [facility] Address: [address] [address] Performed By: #### 1 4196-0, 06354-8 #### [facility] CLIA [id number] [address] [place] [address] 36741 Differential cell count method Nom (Bld) Auto Normal [facility] Comment on above: Order Comment: Speci men Type: BLOOD SPECIMEN Ordering Facility: [facility] Address: [address] [address] Performed By: #### 1 4196-0, 22979-9 #### [facility] CLIA [id number] [address] [place] [address] 16094 Eosinophils (Bld) [#/Vol] 0.20 10*3/uL Normal <0.46 [facility] Comment on above: Order Comment: Speci men Type: BLOOD SPECIMEN Ordering Facility: [facility] Address: [address] [address] Performed By: #### 1 4196-0, 92548-3 #### [facility] CLIA [id number] [address] [place] [address] 01462 Eosinophils/100 WBC (Bld) 2.7 % Normal [facility] Comment on above: Order Comment: Speci men Type: BLOOD SPECIMEN Ordering Facility: [facility] Address: [address] [place] [address] Performed By: #### 1 4196-0, 60295-7 #### [facility] CLIA [id number] [address] [place] [address] 69749 Erythrocyte distribution width (RBC) [Ratio] 14.6 % Normal 11.5-15.0 [facility] Comment on above: Order Comment: Speci men Type: BLOOD SPECIMEN Ordering Facility: [facility] Address: [address] [place] [address] Performed By: #### 1 4196-0, 65049-5 #### [facility] CLIA [id number] [address] [place] [address] 69547 Hematocrit (Bld) [Volume fraction] 45.8 % Normal 36.0-46.0 [facility] Comment on above: Order Comment: Speci men Type: BLOOD SPECIMEN Ordering Facility: [facility] Address: [address] [place] [address] Performed By: #### 1 4196-0, 47706-5 #### [facility] CLIA [id number] [address] [place] [address] 99484 Hemoglobin (Bld) [Mass/Vol] 15.2 g/dL Normal 11.5-15.5 [facility] Comment on above: Order Comment: Speci men Type: BLOOD SPECIMEN Ordering Facility: [facility] Address: [address] [place] [address] Performed By: #### 1 4196-0, 08112-1 #### [facility] CLIA [id number] [address] [place] [address] 14292 Immature granulocytes (Bld) [#/Vol] 0.03 10*3/uL Normal <0.10 [facility] Comment on above: Order Comment: Speci men Type: BLOOD SPECIMEN Ordering Facility: [facility] Address: [address] [address] Performed By: #### 1 4196-0, 94629-6 #### [facility] CLIA [id number] [address] [place] [address] 65027 Immature granulocytes/100 WBC (Bld) 0.4 % Normal [facility] Comment on above: Order Comment: Speci men Type: BLOOD SPECIMEN Ordering Facility: [facility] Address: [address] [address] Performed By: #### 1 4196-0, 64058-0 #### [facility] CLIA [id number] [address] [place] [address] 54427 Lymphocytes (Bld) [#/Vol] 2.66 10*3/uL Normal 1.00-4.00 [facility] Comment on above: Order Comment: Speci men Type: BLOOD SPECIMEN Ordering Facility: [facility] Address: [address] [address] Performed By: #### 1 4196-0, 66215-2 #### [facility] CLIA [id number] [address] [place] [address] 42659 Lymphocytes/100 WBC (Bld) 35.5 % Normal [facility] Comment on above: Order Comment: Speci men Type: BLOOD SPECIMEN Ordering Facility: [facility] Address: [address] [address] Performed By: #### 1 4196-0, 10646-3 #### [facility] CLIA [id number] [address] [place] [address] 68541 MCH (RBC) [Entitic mass] 28.3 pg Normal 26.0-34.0 [facility] Comment on above: Order Comment: Speci men Type: BLOOD SPECIMEN Ordering Facility: [facility] Address: [address] Performed By: #### 1 4196-0, 28236-3 #### [facility] CLIA [id number] [address] [place] [address] 00772 MCHC (RBC) [Mass/Vol] 33.2 g/dL Normal 30.5-36.0 [facility] Comment on above: Order Comment: Speci men Type: BLOOD SPECIMEN Ordering Facility: [facility] Address: [address] [address] Performed By: #### 1 4196-0, 10717-9 #### [facility] CLIA [id number] [address] [place] [address] 78645 MCV (RBC) [Entitic vol] 85.3 fL Normal 80.0-100.0 [facility] Comment on above: Order Comment: Speci men Type: BLOOD SPECIMEN Ordering Facility: [facility] Address: [address] [address] Performed By: #### 1 4196-0, 17642-3 #### [facility] CLIA [id number] [address] [place] [address] 65436 Monocytes (Bld) [#/Vol] 0.40 10*3/uL Normal <0.87 [facility] Comment on above: Order Comment: Speci men Type: BLOOD SPECIMEN Ordering Facility: [facility] Address: [address] [address] Performed By: #### 1 4196-0, 53577-2 #### [facility] CLIA [id number] [address] [place] [address] 35296 Monocytes/100 WBC (Bld) 5.3 % Normal [facility] Comment on above: Order Comment: Speci men Type: BLOOD SPECIMEN Ordering Facility: [facility] Address: [address] [address] Performed By: #### 1 4196-0, 82062-6 #### [facility] CLIA [id number] [address] [place] [address] [place] [address] Neutrophils (Bld) [#/Vol] 4.17 10*3/uL Normal 1.45-7.50 [facility] Comment on above: Order Comment: Speci men Type: BLOOD SPECIMEN Ordering Facility: [facility] Address: [address] [address] Performed By: #### 1 4196-0, 59626-0 #### [facility] CLIA [id number] [address] [place] [address] 95306 Neutrophils/100 WBC (Bld) 55.6 % Normal [facility] Comment on above: Order Comment: Speci men Type: BLOOD SPECIMEN Ordering Facility: [facility] Address: [address] [address] Performed By: #### 1 4196-0, 83360-4 #### [facility] CLIA [id number] [address] [place] [address] 56105 Nucleated RBC (Bld) [#/Vol] 10*3/uL Normal <0.01 [facility] Comment on above: Order Comment: Speci men Type: BLOOD SPECIMEN Ordering Facility: [facility] Address: [address] [place] [address] Performed By: #### 1 4196-0, 50455-1 #### [facility] CLIA [id number] [address] [place] [address] 84978 Nucleated RBC/100 WBC (Bld) [Ratio] 0.0 /100 WBC Normal [facility] Comment on above: Order Comment: Speci men Type: BLOOD SPECIMEN Ordering Facility: [facility] Address: [address] [address] Performed By: #### 1 4196-0, 01842-4 #### [facility] CLIA [id number] [address] [place] [address] 24599 Platelet mean volume (Bld) [Entitic vol] 9.1 fL Normal 9.0-12.7 [facility] Comment on above: Order Comment: Speci men Type: BLOOD SPECIMEN Ordering Facility: [facility] Address: [address] [address] Performed By: #### 1 4196-0, 75241-2 #### [facility] CLIA [id number] [address] [place] [address] 82324 Platelets (Bld) [#/Vol] 293 10*3/uL Normal 150-400 [facility] Comment on above: Order Comment: Speci men Type: BLOOD SPECIMEN Ordering Facility: [facility] Address: [address] [address] Performed By: #### 1 4196-0, 22956-7 #### [facility] CLIA [id number] [address] [place] [address]1010 RBC (Bld) [#/Vol] 5.37 10*6/uL High 3.90-5.20 [facility] Comment on above: Order Comment: Speci men Type: BLOOD SPECIMEN Ordering Facility: [facility] Address: [address] [place] [address] Performed By: #### 1 4196-0, 68256-8 #### [facility] CLIA [id number] [address] [place] [address] 01509 WBC (Bld) [#/Vol] 7.50 10*3/uL Normal 3.70-11.00 [facility] Comment on above: Order Comment: Speci men Type: BLOOD SPECIMEN Ordering Facility: [facility] Address: [address] [place] [address] Performed By: #### 1 4196-0, 91440-9 #### [facility] CLIA [id number] [address] [place] [address] 40322 Ferritin SerPl-mCncon 2022 Ferritin [Mass/Vol] 30.8 ng/mL Normal 14.7-205.1 [facility] Comment on above: Order Comment: Speci men Type: BLOOD SPECIMEN Ordering Facility: [facility] Address: [address] [place] [address] Performed By: #### 5 0190-8, 2276-4 #### [facility] CLIA [id number] [address] [place] [address] [place] Iron and Iron binding capaci ty panelon 09-10-2022 Iron [Mass/Vol] 40 ug/dL Low 41-186 [facility] Comment on above: Order Comment: Speci men Type: BLOOD SPECIMEN Ordering Facility: [facility] Address: [address] Performed By: #### 5 0190-8, 2275-4 #### [facility] CLIA [id number] [address] [place] [address] [place] Iron binding capacity [Mass/Vol] 328 ug/dL Normal 232-386 [facility] Comment on above: Order Comment: Speci men Type: BLOOD SPECIMEN Ordering Facility: [facility] Address: [address] [place], [place] [address] Performed By: #### 5 0190-8, 2275-07 #### [facility] CLIA [id number] [address] [place] [address] [place] Iron/TIBC [Molar ratio] 12.2 % Low 15.0-57.0 [facility] Comment on above: Order Comment: Speci men Type: BLOOD SPECIMEN Ordering Facility: [facility] Address: [address] [place] [id number] Performed By: #### 5 0190-8, 2275-07 #### [facility] CLIA [id number] [address] [place] [address] [place] Retics #on 09-10-2022 Reticulocytes (Bld) [#/Vol] 0.92895 10*3/uL High 0.018-0.100 [facility] Comment on above: Order Comment: Speci men Type: BLOOD SPECIMEN Ordering Facility: [facility] Address: [address] [place] [address] Performed By: #### 1 4196-0, 21967-4 #### [facility] CLIA [id number] [address] [place] [address]407 Reticulocytes (Bld) [#/Vol]o n 09-10-2022 Reticulocytes/100 RBC (Bld) 2.2 % High 0.4-2.0 [facility] Comment on above: Order Comment: Speci men Type: BLOOD SPECIMEN Ordering Facility: [facility] Address: [address] [address] Performed By: #### 1 4196-0, 21213-0 #### [facility] CLIA [id number] [address] [place] [address] 71660 FSHon 07-28-2022 FSH 25.2 mIU/mL Normal [facility] Comment on above: Result Comment: Adul t Female: Follicular phase 3.5 - 12.5 Ovulation phase 4.7 - 21.5 Luteal phase 1.7 - 7.7 Postmenopausal 25.8 - 134.8 Performed By: #### [facility] #### [facility] [address] [address] [address] Sarah Philippe XR CHEST 2 Von [...] by: ABNER BERNABE Date: 2022-07-27 10:29 Normal [facility] CBC W Auto Differential pane l (Bld)on 03-14-2022 Basophils (Bld) [#/Vol] 0.05 10*3/uL Normal <0.11 [facility] Comment on above: Order Comment: Speci men Type: BLOOD SPECIMEN Ordering Facility: [facility] Address: [address] [address] Performed By: #### 5 7021-8 #### [facility] CLIA [id number] [address] [place] [address] 54236 Basophils/100 WBC (Bld) 0.6 % Normal [facility] Comment on above: Order Comment: Speci men Type: BLOOD SPECIMEN Ordering Facility: [facility] Address: [address] [address] Performed By: #### 5 7021-8 #### [facility] CLIA [id number] [address] [place] [address] 64219 Differential cell count method Nom (Bld) Auto Normal [facility] Comment on above: Order Comment: Speci men Type: BLOOD SPECIMEN Ordering Facility: [facility] Address: [address] [address] Performed By: #### 5 7021-8 #### [facility] CLIA [id number] [address] [place] [address] 22477 Eosinophils (Bld) [#/Vol] 0.22 10*3/uL Normal <0.46 [facility] Comment on above: Order Comment: Speci men Type: BLOOD SPECIMEN Ordering Facility: [facility] Address: [address] [address] Performed By: #### 5 7021-8 #### [facility] CLIA [id number] [address] [place] [address] 37473 Eosinophils/100 WBC (Bld) 2.4 % Normal [facility] Comment on above: Order Comment: Speci men Type: BLOOD SPECIMEN Ordering Facility: [facility] Address: [address] [address] Performed By: #### 5 7021-8 #### [facility] CLIA [id number] [address] [place] [address] 36657 Erythrocyte distribution width (RBC) [Ratio] 14.0 % Normal 11.5-15.0 [facility] Comment on above: Order Comment: Speci men Type: BLOOD SPECIMEN Ordering Facility: [facility] Address: [address] [address] Performed By: #### 5 7021-8 #### [facility] CLIA [id number] [address] [place] [address] 75864 Hematocrit (Bld) [Volume fraction] 43.4 % Normal 36.0-46.0 [facility] Comment on above: Order Comment: Speci men Type: BLOOD SPECIMEN Ordering Facility: [facility] Address: [address] [place] [address] Performed By: #### 5 7021-8 #### [facility] CLIA [id number] [address] [place] [address] 22125 Hemoglobin (Bld) [Mass/Vol] 14.6 g/dL Normal 11.5-15.5 [facility] Comment on above: Order Comment: Speci men Type: BLOOD SPECIMEN Ordering Facility: [facility] Address: [address] [place] [address] Performed By: #### 5 7021-8 #### [facility] CLIA [id number] [address] [place] [address] 03455 Immature granulocytes (Bld) [#/Vol] 0.03 10*3/uL Normal <0.10 [facility] Comment on above: Order Comment: Speci men Type: BLOOD SPECIMEN Ordering Facility: [facility] Address: [address] [place] [address] Performed By: #### 5 7021-8 #### [facility] CLIA [id number] [address] [place] [address] 11335 Immature granulocytes/100 WBC (Bld) 0.3 % Normal [facility] Comment on above: Order Comment: Speci men Type: BLOOD SPECIMEN Ordering Facility: [facility] Address: [address] [place] [address] Performed By: #### 5 7021-8 #### [facility] CLIA [id number] [address] [place] [address] 47297 Lymphocytes (Bld) [#/Vol] 3.15 10*3/uL Normal 1.00-4.00 [facility] Comment on above: Order Comment: Speci men Type: BLOOD SPECIMEN Ordering Facility: [facility] Address: [address] [address] Performed By: #### 5 7021-8 #### [facility] CLIA [id number] [address] [place] [address] 33931 Lymphocytes/100 WBC (Bld) 34.7 % Normal [facility] Comment on above: Order Comment: Speci men Type: BLOOD SPECIMEN Ordering Facility: [facility] Address: [address] [address] Performed By: #### 5 7021-8 #### [facility] CLIA [id number] [address] [place] [address] 05685 MCH (RBC) [Entitic mass] 29.2 pg Normal 26.0-34.0 [facility] Comment on above: Order Comment: Speci men Type: BLOOD SPECIMEN Ordering Facility: [facility] Address: [address] [address] Performed By: #### 5 7021-8 #### [facility] CLIA [id number] [address] [place] [address] 51891 MCHC (RBC) [Mass/Vol] 33.6 g/dL Normal 30.5-36.0 [facility] Comment on above: Order Comment: Speci men Type: BLOOD SPECIMEN Ordering Facility: [facility] Address: [address] [address] Performed By: #### 5 7021-8 #### [facility] CLIA [id number] [address] [place] [address] 60467 MCV (RBC) [Entitic vol] 86.8 fL Normal 80.0-100.0 [facility] Comment on above: Order Comment: Speci men Type: BLOOD SPECIMEN Ordering Facility: [facility] Address: [address] [place] [address] Performed By: #### 5 7021-8 #### [facility] CLIA [id number] [address] [place] [address] 10856 Monocytes (Bld) [#/Vol] 0.48 10*3/uL Normal <0.87 [facility] Comment on above: Order Comment: Speci men Type: BLOOD SPECIMEN Ordering Facility: [facility] Address: [address] [address] Performed By: #### 5 7021-8 #### [facility] CLIA [id number] [address] [place] [address] 90452 Monocytes/100 WBC (Bld) 5.3 % Normal [facility] Comment on above: Order Comment: Speci men Type: BLOOD SPECIMEN Ordering Facility: [facility] Address: [address] [address] Performed By: #### 5 7021-8 #### [facility] CLIA [id number] [address] [place] [address] 03694 Neutrophils (Bld) [#/Vol] 5.14 10*3/uL Normal 1.45-7.50 [facility] Comment on above: Order Comment: Speci men Type: BLOOD SPECIMEN Ordering Facility: [facility] Address: [address] [address] Performed By: #### 5 7021-8 #### [facility] CLIA [id number] [address] [place] [address] 08717 Neutrophils/100 WBC (Bld) 56.7 % Normal [facility] Comment on above: Order Comment: Speci men Type: BLOOD SPECIMEN Ordering Facility: [facility] Address: [address] Performed By: #### 5 7021-8 #### [facility] CLIA [id number] [address] [place] [address] 39094 Nucleated RBC (Bld) [#/Vol] 10*3/uL Normal <0.01 [facility] Comment on above: Order Comment: Speci men Type: BLOOD SPECIMEN Ordering Facility: [facility] Address: [address] Performed By: #### 5 7021-8 #### [facility] CLIA [id number] [address] [place] [address] Nucleated RBC/100 WBC (Bld) [Ratio] 0.0 /100 WBC Normal [facility] Comment on above: Order Comment: Speci men Type: BLOOD SPECIMEN Ordering Facility: [facility] Address: [address] [place] [address] Performed By: #### 5 7021-8 #### [facility] CLIA [id number] [address] [place] [address] 73905 Platelet mean volume (Bld) [Entitic vol] 9.4 fL Normal 9.0-12.7 [facility] Comment on above: Order Comment: Speci men Type: BLOOD SPECIMEN Ordering Facility: [facility] Address: [address] [place] [address] Performed By: #### 5 7021-8 #### [facility] CLIA [id number] [address] [place] [address] 86045 Platelets (Bld) [#/Vol] 320 10*3/uL Normal 150-400 [facility] Comment on above: Order Comment: Speci men Type: BLOOD SPECIMEN Ordering Facility: [facility] Address: [address] [place] [address] Performed By: #### 5 7021-8 #### [facility] CLIA [id number] [address] [place] [address] 09577 RBC (Bld) [#/Vol] 5.00 10*6/uL Normal 3.90-5.20 [facility] Comment on above: Order Comment: Speci men Type: BLOOD SPECIMEN Ordering Facility: [facility] Address: [address] [place] [address] Performed By: #### 5 7021-8 #### [facility] CLIA [id number] [address] [place] [address] 92733 WBC (Bld) [#/Vol] 9.07 10*3/uL Normal 3.70-11.00 [facility] Comment on above: Order Comment: Speci men Type: BLOOD SPECIMEN Ordering Facility: [facility] Address: [address] [address] Performed By: #### 5 7021-8 #### [facility] CLIA [id number] [address] [place] [address] 74099 Comprehensive metabolic 2000 panelon 03-14-2022 Albumin [Mass/Vol] 4.1 g/dL Normal 3.9-4.9 [facility] Comment on above: Order Comment: Speci men Type: BLOOD SPECIMEN Ordering Facility: [facility] Address: [address] [address] Performed By: #### 2 4323-8 #### [facility] CLIA [id number] [address] [place] [address] 74495 ALP [Catalytic activity/Vol] 107 U/L Normal 34-123 [facility] Comment on above: Order Comment: Speci men Type: BLOOD SPECIMEN Ordering Facility: [facility] Address: [address] [address] Performed By: #### 2 4323-8 #### [facility] CLIA [id number] [address] [place] [address] 34635 ALT [Catalytic activity/Vol] 32 U/L Normal 7-38 [facility] Comment on above: Order Comment: Speci men Type: BLOOD SPECIMEN Ordering Facility: [facility] Address: [address] [address] Performed By: #### 2 4323-8 #### [facility] CLIA [id number] [address] [place] [address] 07139 Anion gap [Moles/Vol] 10 mmol/L Normal 9-18 [facility] Comment on above: Order Comment: Speci men Type: BLOOD SPECIMEN Ordering Facility: [facility] Address: [address] [address] Performed By: #### 2 4323-8 #### [facility] CLIA [id number] [address] [place] [address] 48247 AST [Catalytic activity/Vol] 28 U/L Normal 13-35 [facility] Comment on above: Order Comment: Speci men Type: BLOOD SPECIMEN Ordering Facility: [facility] Address: [address] [address] Performed By: #### 2 4323-8 #### [facility] CLIA [id number] [address] [place] [address] 53962 Bilirubin [Mass/Vol] mg/dL Low 0.2-1.3 [facility] Comment on above: Order Comment: Speci men Type: BLOOD SPECIMEN Ordering Facility: [facility] Address: [address] [address] Performed By: #### 2 4323-8 #### [facility] CLIA [id number] [address] [place] [address] 74620 Calcium [Mass/Vol] 9.3 mg/dL Normal 8.5-10.2 [facility] Comment on above: Order Comment: Speci men Type: BLOOD SPECIMEN Ordering Facility: [facility] Address: [address] [address] Performed By: #### 2 4323-8 #### [facility] CLIA [id number] [address] [place] [address] 62428 Chloride [Moles/Vol] 104 mmol/L Normal 97-105 [facility] Comment on above: Order Comment: Speci men Type: BLOOD SPECIMEN Ordering Facility: [facility] Address: [address] [address] Performed By: #### 2 4323-8 #### [facility] CLIA [id number] [address] [place] [address] 21581 CO2 [Moles/Vol] 27 mmol/L Normal 22-30 [facility] Comment on above: Order Comment: Speci men Type: BLOOD SPECIMEN Ordering Facility: [facility] Address: [address] [address] Performed By: #### 2 4323-8 #### [facility] CLIA [id number] [address] [place] [address] Creatinine [Mass/Vol] 0.93 mg/dL Normal 0.58-0.96 [facility] Comment on above: Order Comment: Sanjana schultz Type: BLOOD SPECIMEN Ordering Facility: [facility] Address: [address] [place] [address] Performed By: #### 2 4323-8 #### [facility] CLIA [id number] [address] [place] [address] 28238 ESTIMATED GLOMERULAR FILTRATION RATE 74 mL/min/1.73m??? Normal >=60 [facility] Comment on above: Order Comment: Sanjana schultz Type: BLOOD SPECIMEN Ordering Facility: [facility] Address: [address] [place] [address] Result Comment: Yeimy mated Glomerular Filtration Rate [...] GFR. Performed By: #### 2 4323-8 #### [facility] CLIA [id number] [address] [place] [address] 20780 Glucose [Mass/Vol] 118 mg/dL High 74-99 [facility] Comment on above: Order Comment: Sanjana schultz Type: BLOOD SPECIMEN Ordering Facility: [facility] Address: [address] [place] [address] Result Comment: The [place] [employer] (ADA) provides guidance for cutoff [...] Standards of Medical Care in Diabetes 2016, [place] [employer]. Diabetes Care. 2016.39(Suppl 1). Performed By: #### 2 4323-8 #### [facility] CLIA [id number] [address] [place] [address] Potassium [Moles/Vol] 3.7 mmol/L Normal 3.7-5.1 [facility] Comment on above: Order Comment: Speci men Type: BLOOD SPECIMEN Ordering Facility: [facility] Address: [address] [address] Performed By: #### 2 4323-8 #### [facility] CLIA [id number] [address] [place] [address] 32401 Protein [Mass/Vol] 6.8 g/dL Normal 6.3-8.0 [facility] Comment on above: Order Comment: Speci men Type: BLOOD SPECIMEN Ordering Facility: [facility] Address: [address] [address] Performed By: #### 2 4323-8 #### [facility] CLIA [id number] [address] [place] [address] 87512 Sodium [Moles/Vol] 141 mmol/L Normal 136-144 [facility] Comment on above: Order Comment: Speci men Type: BLOOD SPECIMEN Ordering Facility: [facility] Address: [address] [address] Performed By: #### 2 4323-8 #### [facility] CLIA [id number] [address] [place] [address] 38761 Urea nitrogen [Mass/Vol] 17 mg/dL Normal 7-21 [facility] Comment on above: Order Comment: Speci men Type: BLOOD SPECIMEN Ordering Facility: [facility] Address: [address] [address] Performed By: #### 2 4323-8 #### [facility] CLIA [id number] [address] [place] [address] Ferritin SerPl-mCncon 2021 Ferritin [Mass/Vol] 27.4 ng/mL Normal 14.7-205.1 [facility] Comment on above: Order Comment: Speci men Type: BLOOD SPECIMEN Ordering Facility: [facility] Address: [address] [place] [address] Performed By: #### 2 276-4 #### [facility] CLIA [id number] [address] [place] [address] [place] Iron and Iron binding capaci ty panelon 03-14-2022 Iron [Mass/Vol] 56 ug/dL Normal 41-186 [facility] Comment on above: Order Comment: Speci men Type: BLOOD SPECIMEN Ordering Facility: [facility] Address: [address] [place] [address] Performed By: #### 5 0190-8 #### [facility] CLIA [id number] [address] [place] [address] [place] Iron binding capacity [Mass/Vol] 298 ug/dL Normal 232-386 [facility] Comment on above: Order Comment: Speci men Type: BLOOD SPECIMEN Ordering Facility: [facility] Address: [address] [place] [address] Performed By: #### 5 0190-8 #### [facility] CLIA [id number] [address] [place] [address] [place] Iron/TIBC [Molar ratio] 18.8 % Normal 15.0-57.0 [facility] Comment on above: Order Comment: Speci men Type: BLOOD SPECIMEN Ordering Facility: [facility] Address: [address] [place] [address] Performed By: #### 5 0190-8 #### [facility] CLIA [id number] [address] [place] [address] [place] CBC AUTO DIFFon 02-23-2022 BASO # 0.1 103/ul Normal 0.0-0.1 [facility] Comment on above: Performed By: #### C BC #### [facility] [address] [place] [address] Dr. Sarah Philippe Basophils/100 WBC (Bld) 0.6 % Normal 0.2-2.0 [facility] Comment on above: Performed By: #### C BC #### [facility] [address] [place] [address] Dr. Sarah Philippe EO # 0.2 103/ul Normal 0.0-0.7 [facility] Comment on above: Performed By: #### C BC #### [facility] [address] [place] [address] Dr. Sarah Philippe Eosinophils/100 WBC (Bld) 1.8 % Normal 0.9-7.0 [facility] Comment on above: Performed By: #### C BC #### [facility] [address] [place] [address] Dr. Sarah Philippe Erythrocyte distribution width (RBC) [Ratio] 13.9 % Normal 11.0-15.0 [facility] Comment on above: Performed By: #### C BC #### [facility] [address] [place] [address] Dr. Sarah Philippe Hematocrit (Bld) [Volume fraction] 45.3 % Normal 36.0-48.0 [facility] Comment on above: Performed By: #### C BC #### [facility] [address] [place] [address] Dr. Sarah Philippe Hemoglobin (Bld) [Mass/Vol] 14.8 g/dL Normal 12.0-16.0 [facility] Comment on above: Performed By: #### C BC #### [facility] [address] [place] [address] Dr. Sarah Philippe IG # 0.02 10e3/ul Normal 0.00-0.03 [facility] Comment on above: Performed By: #### C BC #### [facility] [address] [place] [address] Dr. Sarah Philippe IG % 0.2 % Normal 0.0-0.5 [facility] Comment on above: Performed By: #### C BC #### [facility] [address] [place] [address] Dr. Sarah Philippe LYMPH # 3.0 103/ul Normal 1.2-3.8 [facility] Comment on above: Performed By: #### C BC #### [facility] [address] [place] [address] Dr. Sarah Philippe Lymphocytes/100 WBC (Bld) 35.3 % Normal 20.5-60.0 [facility] Comment on above: Performed By: #### C BC #### [facility] [address] [place] [address] Dr. Sarah Philippe MANUAL DIFF REQ NO Normal [facility] Comment on above: Performed By: #### C BC #### [facility] [address] [place] [address] Dr. Sarah Philippe MCH (RBC) [Entitic mass] 27.5 pg Normal 26.7-34.0 [facility] Comment on above: Performed By: #### C BC #### [facility] [address] [place] [address] Dr. Sarah Philippe MCHC (RBC) [Mass/Vol] 32.7 g/dL Normal 29.9-35.2 [facility] Comment on above: Performed By: #### C BC #### [facility] [address] [place] [address] Dr. Sarah Philippe MCV (RBC) [Entitic vol] 84.0 fL Normal 81.0-99.0 [facility] Comment on above: Performed By: #### C BC #### [facility] [address] [place] [address] Dr. Sarah Philippe MONO # 0.5 103/ul Normal 0.3-0.8 [facility] Comment on above: Performed By: #### C BC #### [facility] [address] [place] [address] Dr. Sarah Philippe Monocytes/100 WBC (Bld) 6.3 % Normal 1.7-12.0 [facility] Comment on above: Performed By: #### C BC #### [facility] [address] [address] [address] Sarah Philippe NEUT # 4.7 103/ul Normal 1.4-6.5 [facility] Comment on above: Performed By: #### C BC #### [facility] [address] [address] [address] Sarah Philippe Neutrophils/100 WBC (Bld) 55.8 % Normal 43.0-75.0 [facility] Comment on above: Performed By: #### C BC #### [facility] [address] [place] [address] Dr. Sarah Philippe Platelet mean volume (Bld) [Entitic vol] 9.3 fL Critically low 9.5-13.5 [facility] Comment on above: Performed By: #### C BC #### [facility] [address] [place] [address] Dr. Sarah Philippe PLT 323 103/ul Normal 150-450 [facility] Comment on above: Performed By: #### C BC #### [facility] [address] [place] [address] Dr. Sarah Philippe RBC 5.39 106/ul Normal 4.20-5.40 [facility] Comment on above: Performed By: #### C BC #### [facility] [address] [place] [address] Dr. Sarah Philippe WBC 8.4 103/ul Normal 4.0-11.0 [facility] Comment on above: Performed By: #### C BC #### [facility] [address] [place] [address] Dr. Sarah Philippe LIPID PROFILEon 02-23-2022 CHOL-HDL RATIO NORM SEE BELOW Normal [facility] Comment on above: Result Comment: 3.3 - 4.4 LOW RISK 4.4 - 7.1 AVERAGE RISK 7.1 - 11.0 MODERATE RISK >11.0 HIGH RISK Performed By: #### C MP, TSH, T4, LIPID #### [facility] [address] [place] [address] Dr. Sarah Philippe Cholesterol [Mass/Vol] 287 mg/dL Critically high <=200 [facility] Comment on above: Performed By: #### C MP, TSH, T4, LIPID #### [facility] [address] [address] [address] Sarah Philippe Cholesterol in HDL [Mass/Vol] 40 mg/dL Normal 40-60 [facility] Comment on above: Performed By: #### C MP, TSH, T4, LIPID #### [facility] [address] [address] [address] Sarah Philippe Cholesterol in LDL [Mass/Vol] 183.4 mg/dL Normal [facility] Comment on above: Performed By: #### C MP, TSH, T4, LIPID #### [facility] [address] [address] [address] Sarah Philippe Cholesterol.total/Cho lesterol in HDL [Mass ratio] 7.2 {ratio} Normal [facility] Comment on above: Performed By: #### C MP, TSH, T4, LIPID #### [facility] [address] [address] [address] Sarah Philippe HDL NORMAL > or = 60 mg/dl - LOW CARDIOVASCULAR RISK <40 mg/dl - HIGH CARDIOVASCULAR RISK Normal [facility] Comment on above: Performed By: #### C MP, TSH, T4, LIPID #### [facility] [address] [address] [address] Sarah Philippe LDL CALC NORMAL SEE BELOW Normal [facility] Comment on above: Result Comment: <100 mg/dl OPTIMAL 100 - 129 mg/dl NEAR OR ABOVE OPTIMAL 130 - 159 mg/dl BORDERLINE HIGH 160 - 189 mg/dl HIGH >190 mg/dl VERY HIGH Performed By: #### C MP, TSH, T4, LIPID #### [facility] [address] [address] [address] Sarah Philippe Triglyceride [Mass/Vol] 318 mg/dL Critically high <=150 [facility] Comment on above: Performed By: #### C MP, TSH, T4, LIPID #### [facility] [address] [address] [address] Sarah Philippe VLDL CALC 63.6 mg/dL Normal [facility] Comment on above: Performed By: #### C MP, TSH, T4, LIPID #### [facility] [address] [address] [address] Sarah Philippe PROF 14(COMP METB)on 022 Albumin [Mass/Vol] 3.6 g/dL Normal 3.4-5.0 [facility] Comment on above: Performed By: #### C MP, TSH, T4, LIPID #### [facility] [address] [place] [address] Dr. Sarah Philippe Albumin/Globulin [Mass ratio] 0.9 {ratio} Normal [facility] Comment on above: Performed By: #### C MP, TSH, T4, LIPID #### [facility] [address] [place] [address] Dr. Sarah Philippe ALP [Catalytic activity/Vol] 102 U/L Normal 46-116 [facility] Comment on above: Performed By: #### C MP, TSH, T4, LIPID #### [facility] [address] [place] [address] Dr. Sarah Philippe ALT [Catalytic activity/Vol] 36 U/L Normal 14-59 [facility] Comment on above: Performed By: #### C MP, TSH, T4, LIPID #### [facility] [address] [place] [address] Dr. Sarah Philippe Anion gap [Moles/Vol] 10.6 mmol/L Normal [facility] Comment on above: Performed By: #### C MP, TSH, T4, LIPID #### [facility] [address] [place] [address] Dr. Sarah Philipep AST [Catalytic activity/Vol] 21 U/L Normal 15-37 [facility] Comment on above: Performed By: #### C MP, TSH, T4, LIPID #### [facility] [address] [place] [address] Dr. Sarah Philippe Bilirubin [Mass/Vol] 0.3 mg/dL Normal 0.2-1.0 [facility] Comment on above: Performed By: #### C MP, TSH, T4, LIPID #### [facility] [address] [address] [address] Sarah Philippe Calcium [Mass/Vol] 9.2 mg/dL Normal 8.5-10.1 [facility] Comment on above: Performed By: #### C MP, TSH, T4, LIPID #### [facility] [address] [address] [address] Sarah Philippe Chloride [Moles/Vol] 98 mmol/L Normal 98-107 [facility] Comment on above: Performed By: #### C MP, TSH, T4, LIPID #### [facility] [address] [address] [address] Sarah Philippe CO2 [Moles/Vol] 27.8 mmol/L Normal 21.0-32.0 [facility] Comment on above: Performed By: #### C MP, TSH, T4, LIPID #### [facility] [address] [place] [address] Dr. Sarah Philippe Creatinine [Mass/Vol] 1.00 mg/dL Normal 0.55-1.02 [facility] Comment on above: Performed By: #### C MP, TSH, T4, LIPID #### [facility] [address] [address] [address] Sarah Philippe EGFR-AF GAMBIAN >60 Normal >=60 [facility] Comment on above: Performed By: #### C MP, TSH, T4, LIPID #### [facility] [address] [address] [address] Sarah Philippe EGFR-NON AF GAMBIAN 58 mL/min/1.73m2 Critically low >=60 [facility] Comment on above: Performed By: #### C MP, TSH, T4, LIPID #### [facility] [address] [address] [address] Sarah Philippe Globulin (S) [Mass/Vol] 4.1 g/dL Normal [facility] Comment on above: Performed By: #### C MP, TSH, T4, LIPID #### [facility] [address] [address] [address] Sarah Philippe Glucose [Mass/Vol] 108 mg/dL Critically high 74-106 [facility] Comment on above: Performed By: #### C MP, TSH, T4, LIPID #### [facility] [address] [place] [address] Dr. Sarah Philippe Potassium [Moles/Vol] 3.4 mmol/L Critically low 3.5-5.1 [facility] Comment on above: Performed By: #### C MP, TSH, T4, LIPID #### [facility] [address] [place] [address] Dr. Sarah Philippe Protein [Mass/Vol] 7.7 g/dL Normal 6.4-8.2 [facility] Comment on above: Performed By: #### C MP, TSH, T4, LIPID #### [facility] [address] [place] [address] Dr. Sarah Philippe Sodium [Moles/Vol] 133 mmol/L Critically low 136-145 [facility] Comment on above: Performed By: #### C MP, TSH, T4, LIPID #### [facility] [address] [place] [address] Dr. Sarah Philippe Urea nitrogen [Mass/Vol] 15.0 mg/dL Normal 7.0-18.0 [facility] Comment on above: Performed By: #### C MP, TSH, T4, LIPID #### [facility] [address] [place] [address] Dr. Sarah Philippe Urea nitrogen/Creatinine [Mass ratio] 15.0 mg/mg Normal [facility] Comment on above: Performed By: #### C MP, TSH, T4, LIPID #### [facility] [address] [place] [address] Dr. Sarah Philippe T4on 02-23-2022 T4 [Mass/Vol] 8.40 ug/dL Normal 4.80-13.90 [facility] Comment on above: Performed By: #### C MP, TSH, T4, LIPID #### [facility] [address] [place] [address] Dr. Sarah Philippe TSHon 02-23-2022 TSH 1.815 uIU/mL Normal 0.358-3.740 [facility] Comment on above: Performed By: #### C MP, TSH, T4, LIPID #### [facility] [address] [place], [place] [address] Dr. Sarah Philippe Covid-19 PCR (CVDTB)on 08-06 SARS-CoV-2 (COVID-19) RNA DARÍO+probe Ql (Unsp spec) Detected Critically abnormal NOT DETECTED [facility] Comment on above: Result Comment: This test is not yet approved or cleared by the [place] FDA. When there are no FDA-approved or cleared tests available, and other criteria are met, FDA can make tests available under an emergency access mechanism called an Emergency Use Authorization (EUA). The EUA for this test is supported by the [employer] [place] of Health and Human Service's (HHS's) declaration [...] used). Performed By: #### C VDTBH #### [facility] [id number] Sarah Philippe Basophils Auto (Bld) [#/Vol] Ordered By: Chris Borden on 07-20-2021 Basophils (Bld) [#/Vol] 0.1 10*3/uL 0.0-0.2 [facility] Basophils/100 WBC Auto (Bld) Ordered By: Chris Borden on 07-20-2021 Basophils/100 WBC (Bld) 0.6 % [facility] Blood hemoglobin measurement (mass/volume)Ordered By: Chris Borden on 07-20-2021 Hemoglobin (Bld) [Mass/Vol] 14.9 g/dL 11.8-15.4 [facility] Blood leukocytes automated c ount (number/volume)Ordered By: Chris Borden on 07-20-2021 WBC (Bld) [#/Vol] 9.6 10*3/uL 4.5-11.0 [facility] COVID-19 Positive/NegativeOr dered By: Chris Borden on 07-20-2021 SARS-CoV-2 (COVID-19) N gene DARÍO+probe Ql (Resp) Negative Negative [facility] Comment on above: Testing for SARS-CoV -2 by RT-PCR This test was developed and its performance characteristics determined by [employer] ([employer]) and validated at the [facility]. This test has not been FDA cleared [...] on 07-20-2021 Creatinine [Mass/Vol] 0.97 mg/dL 0.44-1.03 [facility] Eosinophils Auto (Bld) [#/Vo l]Ordered By: Chris Borden on 07-20-2021 Eosinophils (Bld) [#/Vol] 0.2 10*3/uL 0.0-0.45 [facility] Eosinophils/100 WBC Auto (Bl d)Ordered By: Chris Borden on 07-20-2021 Eosinophils/100 WBC (Bld) 2.0 % [facility] Erythrocyte distribution wid th Auto (RBC) [Ratio]Ordered By: Chris Borden on 07-20-2021 Erythrocyte distribution width (RBC) [Ratio] 14.1 % 11.9-15.3 [facility] Estimated glomerular filtrat ion rate (GFR) non- AmericanOrdered By: Chris Borden on 07-20-2021 GFR/1.73 sq M.predicted among non-blacks MDRD (S/P/Bld) [Vol rate/Area] 60 mL/Min [facility] Hematocrit Auto (Bld) [Volum e fraction]Ordered By: Chris Borden on 07-20-2021 Hematocrit (Bld) [Volume fraction] 44.0 % 34.0-46.4 [facility] - Hematology and Cell countsOrdered By: Chris Borden on 07-20-2021 Nucleated RBC/100 WBC (Bld) [Ratio] 0.3 % 0-0.5 [facility] Lymphocytes Auto (Bld) [#/Vo l]Ordered By: Chris Borden on 07-20-2021 Lymphocytes (Bld) [#/Vol] 3.3 10*3/uL 1.00-4.8 [facility] Lymphocytes/100 WBC Auto (Bl d)Ordered By: Chris Borden on 07-20-2021 Lymphocytes/100 WBC (Bld) 34.3 % [facility] MCH Auto (RBC) [Entitic mass ]Ordered By: Chris Borden on 07-20-2021 MCH (RBC) [Entitic mass] 28.9 pg 24.7-34.3 [facility] MCHC Auto (RBC) [Mass/Vol]Or dered By: Chris Borden on 07-20-2021 MCHC (RBC) [Mass/Vol] 33.8 g/dL 32.0-35.0 [facility] MCV Auto (RBC) [Entitic vol] Ordered By: Chris Borden on 07-20-2021 MCV (RBC) [Entitic vol] 85.6 fL 80-100 [facility] Monocytes Auto (Bld) [#/Vol] Ordered By: Chris Borden on 07-20-2021 Monocytes (Bld) [#/Vol] 0.4 10*3/uL 0.0-0.8 [facility] Monocytes/100 WBC Auto (Bld) Ordered By: Chris Borden on 07-20-2021 Monocytes/100 WBC (Bld) 4.7 % [facility] Neutrophils Auto (Bld) [#/Vo l]Ordered By: Chris Borden on 07-20-2021 Neutrophils (Bld) [#/Vol] 5.6 10*3/uL 1.8-7.7 [facility] Neutrophils/100 WBC Auto (Bl d)Ordered By: Chris Borden on 07-20-2021 Neutrophils/100 WBC (Bld) 58.4 % [facility] No Panel InformationOrdered By: Chris Borden on 07-20-2021 Estimated GFR () > 60 mL/Min [facility] Comment on above: GFR estimated refere nce range: According to KDOQI guidelines, <60 ml/min/1.73m2 is sufficient to diagnose a patient with chronic kidney disease. Pharmacy Creatinine Clearance (Chem N/A [facility] Platelet mean volume Auto (B ld) [Entitic vol]Ordered By: Chris Borden on 07-20-2021 Platelet mean volume (Bld) [Entitic vol] 7.7 fL 6.3-10.7 [facility] Platelets Auto (Bld) [#/Vol] Ordered By: Chris Borden on 07-20-2021 Platelets (Bld) [#/Vol] 365 10*3/uL 150-450 [facility] RBC Auto (Bld) [#/Vol]Ordere d By: Chris Borden on 07-20-2021 RBC (Bld) [#/Vol] 5.14 10*6/uL 3.60-5.00 [facility] Serum or plasma calcium georgie urement (mass/volume)Ordered By: Chris Borden on 07-20-2021 Calcium [Mass/Vol] 9.2 mg/dL 8.2-10.2 [facility] Serum or plasma chloride carolina surement (moles/volume)Ordered By: Chris Borden on 07-20-2021 Chloride [Moles/Vol] 95 mmol/L 95-114 [facility] Serum or plasma glucose georgie urement (mass/volume)Ordered By: Chris Borden on 07-20-2021 Glucose [Mass/Vol] 99 mg/dL 70-100 [facility] Comment on above: ADA recommended refe rence range Random Glucose Reference Range is dependent on time and content of last meal. Glucose of more than 200 mg/dL in a nonstressed, ambulatory subject supports the diagnosis of Diabetes Mellitus. Serum or plasma potassium me asurement (moles/volume)Ordered By: Chris Borden on 07-20-2021 Potassium [Moles/Vol] 3.5 mmol/L 3.5-5.1 [facility] Serum or plasma sodium measu rement (moles/volume)Ordered By: Chris Borden on 07-20-2021 Sodium [Moles/Vol] 134 mmol/L 136-146 [facility] Serum or plasma total carbon dioxide measurement (moles/volume)Ordered By: Chris Borden on 07-20-2021 CO2 [Moles/Vol] 25.9 mmol/L 22.0-30.0 [facility] Serum or plasma urea nitroge n measurement (mass/volume)Ordered By: Chris Borden on 07-20-2021 Urea nitrogen [Mass/Vol] 14 mg/dL 9-23 [facility] Coding Summary.on 03-17-2020 Coding Summary. CODING DATE: 03/17/2020 FINAL [facility] STATUS: Home (Routine DC) PAYOR: Commercial [...] CphT Date Saved: 03/17/2020 04:51 pm Normal [facility] SARS-CoV-2, NAAon 03-12-2020 SARS-CoV-2 (COVID-19) RNA DARÍO+probe Ql (Resp) Not detected Invalid Interpretation Code Not Detected [facility] Comment on above: Result Comment: This nucleic acid amplification test was developed and its performance characteristics determined by [employer]. Nucleic acid amplification tests include PCR and [...] detected) result in this assay. Performed at: [facility] [address] [facility], [place] [id number] [facility] Abbe Velasquez Performed By: #### S ARS-CoV-2, DARÍO #### [facility] [address] [place] [address] Physician Orderon 03-09-2020 Physician Order [id number] #1.00CD:127 Normal [facility] Coding Summary.on 11-20-2019 Coding Summary. CODING DATE: 11/20/2019 [facility] STATUS: Home (Routine DC) PAYOR: Commercial Insurance ADMIT DX: REASON FOR VISIT DX: Z01.818 Encounter for other preprocedural examination FINAL DX: PRINCIPAL: Z01.818 Encounter for other preprocedural examination SECONDARY: Z20.828 Contact with and (suspected) exposure to other viral communicable diseases [facility] DES[facility] DOCTOR NAME DATE NOTE: The code number assigned matches the documented diagnosis and / or procedure in the patient's chart. However, the narrative phrase printed from the coding software may appear abbreviated, or result in slightly different terminology. Coded By: Britney Pabon Date Saved: 11/20/2019 07:41 am Normal [facility] SARS-CoV-2, NAAon 11-05-2019 SARS-CoV-2 (COVID-19) RNA DARÍO+probe Ql (Resp) Not detected Invalid Interpretation Code Not Detected [facility] Comment on above: Result Comment: This test was developed and its performance characteristics determined by [employer]. This test has not been FDA cleared [...] detected) result in this assay. Performed at: [facility] [address] [facility] [place] [id number] MD Arvind Zuniga Performed By: #### S ARS-CoV-2, DARÍO #### [facility] [address] [place] [address] Physician Orderon 10-30-2019 Physician Order [id number]# 1.00CD:127 Normal [facility] Vital Signs Date Time Vital Sign Value Performing Clinician Facility 05-06-2023 11:00-0500 Body height 166.37 cm Luisa Corriganemily Other [facility] Other 05-06-2023 11:00-0500 Body mass index (BMI) [Ratio] 43.11 kg/m2 Luisa Corriganemily Other [facility] Other 05-06-2023 11:00-0500 Body weight 119.34 kg Luisaher Corriganemily Other [facility] Other 05-06-2023 11:00-0500 Diastolic blood pressure 85 mm[Hg] Luisa Fabian Other [facility] Other 05-06-2023 11:00-0500 Respiratory rate 18 /min Luisa Fabian Other [facility] Other 05-06-2023 11:00-0500 SaO2% (BldA) [Mass fraction] 96 % Luisa Fabian Other [facility] Other 05-06-2023 11:00-0500 Systolic blood pressure 119 mm[Hg] Luisa Corriganler Other [facility] Other 04-29-2023 10:00-0500 Body height 166.37 cm Sylvia Chavez Other [facility] Other 04-29-2023 10:00-0500 Body mass index (BMI) [Ratio] 43.26 kg/m2 Sylvia Chavez Other [facility] Other 04-29-2023 10:00-0500 Body weight 119.75 kg Sylvia Chavez Other [facility] Other 04-29-2023 10:00-0500 Diastolic blood pressure 86 mm[Hg] Sylvia Chavez Other [facility] Other 04-29-2023 10:00-0500 SaO2% (BldA) [Mass fraction] 97 % Sylvia Chavez Other [facility] Other 04-29-2023 10:00-0500 Systolic blood pressure 122 mm[Hg] Sylvia Chavez Other [facility] Other 03-11-2023 10:00-0500 Body height 166.37 cm Luisa Missler Other [facility] Other 03-11-2023 10:00-0500 Body mass index (BMI) [Ratio] 44.5 kg/m2 Luisa Missler Other [facility] Other 03-11-2023 10:00-0500 Body weight 123.2 kg Luisa Missler Other [facility] Other 03-11-2023 10:00-0500 Diastolic blood pressure 90 mm[Hg] Luisa Missler Other [facility] Other 03-11-2023 10:00-0500 Respiratory rate 18 /min Luisa Missler Other [facility] Other 03-11-2023 10:00-0500 SaO2% (BldA) [Mass fraction] 94 % Luisa Missler Other [facility] Other 03-11-2023 10:00-0500 Systolic blood pressure 114 mm[Hg] Luisa Missler Other [facility] Other 02-27-2023 08:00-0500 Body height 167.64 cm Sylvia Chavez Other [facility] Other 02-27-2023 08:00-0500 Body mass index (BMI) [Ratio] 44.16 kg/m2 Sylvia Chavez Other [facility] Other 02-27-2023 08:00-0500 Body weight 124.1 kg Sylvia Kathy Other [facility] Other 02-27-2023 08:00-0500 Diastolic blood pressure 86 mm[Hg] Sylvia Kathy Other [facility] Other 02-27-2023 08:00-0500 Respiratory rate 18 /min Sylvia Kathy Other [facility] Other 02-27-2023 08:00-0500 SaO2% (BldA) [Mass fraction] 97 % Sylvia Kathy Other [facility] Other 02-27-2023 08:00-0500 Systolic blood pressure 124 mm[Hg] Sylvia Kathy Other [facility] Other 10-11-2022 11:22-0400 Body temperature 98.01 [degF] Chair Ellen Work Phone: [facility] 10-11-2022 11:22-0400 Diastolic blood pressure 76 mm[Hg] Chair Mcelhattan Work Phone: [facility] 10-11-2022 11:22-0400 Heart rate 78 /min Chair Ellen Work Phone: [facility] 10-11-2022 11:22-0400 Respiratory rate 16 /min Chair Ellen Work Phone: [facility] 10-11-2022 11:22-0400 SaO2% (BldA) [Mass fraction] 96 % Chair Mcelhattan Work Phone: [facility] 10-11-2022 11:22-0400 Systolic blood pressure 109 mm[Hg] Chair Ellen Work Phone: [facility] 07-20-2021 15:02-0400 Body height 167.64 cm DO Maury House Work Phone: [facility] 07-20-2021 15:02-0400 Body mass index (BMI) [Ratio] 42.2 kg/m2 DO Maury House Work Phone: [facility] 07-20-2021 15:02-0400 Body temperature 98.4 [degF] DO Maury House Work Phone: [facility] 07-20-2021 15:02-0400 Body weight 118.7 kg DO Maury House Work Phone: [facility] 07-20-2021 15:02-0400 Diastolic blood pressure 90 mm[Hg] DO Maury House Work Phone: [facility] 07-20-2021 15:02-0400 Heart rate 97 /min DO Maury House Work Phone: [facility] 07-20-2021 15:02-0400 Respiratory rate 18 /min DO Maury House Work Phone: [facility] 07-20-2021 15:02-0400 SaO2% (BldA) [Mass fraction] 95 % DO Maury House Work Phone: [facility] 07-20-2021 15:02-0400 Systolic blood pressure 131 mm[Hg] DO Maury House Work Phone: [facility] Encounters Encounter Date Encounter Type Care Provider Facility Start: 05-16-2023 End: 05-16-2023 ambulatory Luisa Fabian Other [facility] Other Start: 05-16-2023 [facility] Start: 05-06-2023 ([id number]/[id number]) Weight Management f/u [facility] Start: 05-06-2023 End: 05-06-2023 ambulatory Sylvia Chavez Facility:[facility] Start: 04-29-2023 End: 04-29-2023 ambulatory Sylvia Kathy Other [facility] Other Start: 04-29-2023 Office outpatient visit 25 minutes Sylvia Chavez [facility] Start: 03-11-2023 End: 03-11-2023 ambulatory Luisa Fabian Other [facility] Other Start: 03-11-2023 Encounter by ZetrOZ Sylvia Chavez [facility] Start: 03-11-2023 Nutrition therapy Luisa Fabian [facility] Start: 03-11-2023 Telephone encounter Luisa Fabian [facility] Start: 03-07-2023 End: 03-07-2023 ambulatory Sylvia Chavez Other [facility] Other Start: 03-07-2023 Encounter by ZetrOZ Sylvia Chavez [facility] Start: 03-07-2023 Telephone encounter Sylvia Cliff islas [facility] Start: 03-04-2023 End: 03-04-2023 ambulatory Zoila Grant Other [facility] Other Start: 03-04-2023 Telephone encounter Zoila Grant [facility] Start: 02-27-2023 End: 02-27-2023 ambulatory Sylvia Chavez Other [facility] Other Start: 02-27-2023 Office outpatient ne w 30 minutes Sylvia Chavez [facility] Start: 02-26-2023 ambulatory Dani Julian acility:[facility] Start: 02-14-2023 ambulatory Yosef Zhang MD Work Phone: Hematology/Oncology Comment on above: Tests Start: 10-11-2022 End: 10-11-2022 ambulatory Chair Rachael Hughes Work Phone: Hematology/Oncology Comment on above: Iron deficiency anem ia due to chronic blood loss (Primary Dx) Start: 10-04-2022 End: 10-04-2022 ambulatory FATOU DUTTON Facility:[facility] [place] [facility] Start: 10-04-2022 End: 10-04-2022 ambulatory Chair John Hughes Work Phone: Hematology/Oncology Comment on above: Iron deficiency anem ia due to chronic blood loss (Primary Dx) Start: 09-27-2022 End: 09-28-2022 ambulatory FATOU DUTTON Facility:[facility] [place] [facility] Start: 09-24-2022 Social Work Cash SALGADOW Hematolo gy/Oncology Start: 09-17-2022 End: 09-17-2022 ambulatory MAURY WALLACE SR Facility:[facility] [place] [facility] Start: 09-11-2022 ambulatory Yosef Zhang MD Work Phone: Hematology/Oncology Comment on above: Question regarding C BC + DIFF Start: 09-10-2022 End: 09-10-2022 ambulatory YOSEF ZHANG Facility:[facility] [place] [facility] Start: 09-06-2022 ambulatory Yosef Zhang MD Work Phone: Hematology/Oncology Comment on above: Lab Start: 07-27-2022 End: 07-28-[address] MAURY WALLACE Facility:[facility] Start: 03-14-2022 End: 03-14-2022 ambulatory FATOU DUTTON Facility:[facility] [place] [facility] Start: 02-23-2022 End: 02-24-[address] MAURY WALLACE Facility:[facility] Start: 08-24-2021 End: 08-24-[address] MAURY WALLACE Facility:[facility] Start: 07-24-2021 End: 07-24-2021 Departed Referred DO Maury Wallace Work Phone: [facility] [place] Start: 07-20-2021 End: 07-20-2021 Patient encounter procedure DO Maury Wallace Work Phone: [facility] Start: 06-16-2021 Telephone encounter Marquise deras [...] Author Start: 09-27-2025 DIABETES SCREEN DIABETES SCREEN [facility] Start: 09-27-2025 Diabetes Screening Diabetes Screenin g [facility] Start: 09-06-2025 Lipid 1996 panel - S tam or Plasma Lipid Screening [facility] Start: 09-06-2025 LIPID SCREEN LIPID SCREEN [facility] Start: 03-14-2025 DIABETES SCREEN DIABETES SCREEN [facility] Start: 01-18-2024 DIABETES SCREEN DIABETES SCREEN [facility] Start: 02-14-2023 End: 05-16-2023 CBC W Auto Differential panel - Blood CBC + DIFF Lab Routine Iron deficiency anemia due to chronic blood loss Malaise and fatigue Expected: 02/14/2023, Expires: 05/16/2023 [facility] Work Phone: Comment on above: Expected: 02/14/2023 , Expires: 05/16/2023 Start: 02-14-2023 End: 05-16-2023 Cobalamin (Vitamin B12) [Mass/volume] in Serum or Plasma VITAMIN B12 BLOOD Lab Routine Iron deficiency anemia due to chronic blood loss Malaise and fatigue Expected: 02/14/2023, Expires: 05/16/2023 [facility] Work Phone: Comment on above: Expected: 02/14/2023 , Expires: 05/16/2023 Start: 02-14-2023 End: 05-16-2023 Comprehensive metabolic 2000 panel - Serum or Plasma COMP METABOLIC PANEL Lab Routine Iron deficiency anemia due to chronic blood loss Malaise and fatigue Expected: 02/14/2023, Expires: 05/16/2023 [facility] Work Phone: Comment on above: Expected: 02/14/2023 , Expires: 05/16/2023 Start: 02-14-2023 End: 05-16-2023 Ferritin [Mass/volume] in Serum or Plasma FERRITIN BLD Lab Routine Iron deficiency anemia due to chronic blood loss Malaise and fatigue Expected: 02/14/2023, Expires: 05/16/2023 [facility] Work Phone: Comment on above: Expected: 02/14/2023 , Expires: 05/16/2023 Start: 02-14-2023 End: 05-16-2023 Folate [Mass/volume] in Serum or Plasma FOLATE SERUM Lab Routine Iron deficiency anemia due to chronic blood loss Malaise and fatigue Expected: 02/14/2023, Expires: 05/16/2023 [facility] Work Phone: Comment on above: Expected: 02/14/2023 , Expires: 05/16/2023 Start: 02-14-2023 End: 05-16-2023 Iron and Iron binding capacity panel - Serum or Plasma IRON + TIBC Lab Routine Iron deficiency anemia due to chronic blood loss Malaise and fatigue Expected: 02/14/2023, Expires: 05/16/2023 [facility] Work Phone: Comment on above: Expected: 02/14/2023 , Expires: 05/16/2023 Start: 02-14-2023 End: 05-16-2023 Thyrotropin [Units/volume] in Serum or Plasma TSH BLD Lab Routine Iron deficiency anemia due to chronic blood loss Malaise and fatigue Expected: 02/14/2023, Expires: 05/16/2023 [facility] Work Phone: Comment on above: Expected: 02/14/2023 , Expires: 05/16/2023 Start: 12-07-2022 Colonoscopy COLONOSCOPY [facility] Start: 12-07-2022 COLORECTAL CANCER SCREENING COLORECTAL CANCER SCREENING [facility] Start: 12-07-2022 Covid-19 Vaccine () Covid-19 Vaccine () [facility] Start: 12-07-2022 Influenza vaccination [facility] Start: 09-12-2022 End: 11-12-2022 Comprehensive metabolic 2000 panel - Serum or Plasma COMP METABOLIC PANEL Lab Routine Iron deficiency anemia due to chronic blood loss Expected: 09/12/2022, Expires: 11/12/2022 [facility] Work Phone: Comment on above: Expected: 09/12/2022 , Expires: 11/12/2022 Start: 09-07-2022 End: 11-07-2022 CBC W Auto Differential panel - Blood CBC + DIFF Lab Routine Iron deficiency anemia due to chronic blood loss Expected: 09/07/2022, Expires: 11/07/2022 [facility] Work Phone: Comment on above: Expected: 09/07/2022 , Expires: 11/07/2022 Start: 09-07-2022 End: 09-08-2023 Ferritin [Mass/volume] in Serum or Plasma FERRITIN BLD Lab Routine Iron deficiency anemia due to chronic blood loss Expected: 09/07/2022, Expires: 09/08/2023 [facility] Work Phone: Comment on above: Expected: 09/07/2022 , Expires: 09/08/2023 Start: 09-07-2022 End: 09-08-2023 Iron and Iron binding capacity panel - Serum or Plasma IRON + TIBC Lab Routine Iron deficiency anemia due to chronic blood loss Expected: 09/07/2022, Expires: 09/08/2023 [facility] Work Phone: Comment on above: Expected: 09/07/2022 , Expires: 09/08/2023 Start: 09-07-2022 End: 11-07-2022 RETIC COUNT RETIC COUNT Lab Routine Iron deficiency anemia due to chronic blood loss Expected: 09/07/2022, Expires: 11/07/2022 [facility] Work Phone: Comment on above: Expected: 09/07/2022 , Expires: 11/07/2022 Start: 04-08-2022 DEPRESSION ASSESSMENT DEPRESSION ASS ESSMENT [facility] Start: 01-17-2022 Adult depression screening assessment DEPRESSION SCREENING [facility] Start: 12-07-2021 Influenza vaccination INFLUENZ A (Season Ended) [facility] Start: 09-01-2021 FECAL OCCULT BLOOD FECAL OCCULT BLOO D [facility] Start: 07-24-2021 OR Wound Debridement/I&D/Hydraden itis (Not Applicable) OR Wound Debridement/I&D/Hydrade nitis (Not Applicable) [facility] Start: 01-15-2021 COVID-19 VACCINE (3 - Booster for Pfizer series) COVID-19 VACCINE (3 - Booster for Pfizer series) [facility] Start: 12-07-2020 Influenza vaccination INFLUENZ A (Season Ended) [facility] Start: 10-10-2020 COVID-19 VACCINE (3 - Booster for Pfizer series) COVID-19 VACCINE (3 - Booster for Pfizer series) [facility] Start: 06-14-2019 Screening for malign ant neoplasm of colon [facility] Start: 06-14-2019 SHINGRIX VACCINE (1 of 2) SHINGRIX VACCINE (1 of 2) [facility] Start: 2014 COLOGUARD (FIT-DNA) COLOGUARD (FIT-D NA) [facility] Start: [address] COLONOGRAPHY [facility] Start: 2014 DIABETES SCREEN DIABETES SCREEN [facility] Start: 2014 LIPID SCREEN LIPID SCREEN [facility] Start: 2014 SIGMOIDOSCOPY SIGMOIDOSCOPY [facility] Start: 2009 Mammography [facility] Start: 06-14-1999 HPV TESTING HPV TESTING [facility] Start: 1990 PAP TESTING PAP TESTING [facility] Start: 1988 Urine microalbumin profile [facility] Start: 06-14-1987 HEPATITIS C SCREENING HEPATITIS C SC REENING [facility] Start: 06-14-1987 HIV SCREENING HIV SCREENING [facility] Start: 1981 Adult depression screening assessment DEPRESSION SCREENING [facility] Start: 06-14-1975 PNEUMOCOCCAL (1 - PCV) PNEUMOCOCCAL (1 - PCV) [facility] Start: 06-14-1975 Pneumococcal vaccination Pneum ococcal Vaccine (1 - PCV) [facility] Start: 1969 HEPATITIS B (1 of 3 - 3-dose series) HEPATITIS B (1 of 3 - 3-dose series) [facility] Start: 1969 Hepatitis B Vaccine (1 of 3 - 3-dose series) Hepatitis B Vaccine (1 of 3 - 3-dose series) [facility] Immunizations Immunization Date Immunization Notes Care Provider Fa balaji 08-15-2020 COVID-19 vaccine, ag e 12+ yr (PFIZER-BIONTECH - PURPLE TOP) Marquise Freire DO Work Phone: [facility] 07-18-2020 COVID-19 vaccine, ag e 12+ yr (PFIZER-BIONTECH - PURPLE TOP) Marquise Freire DO Work Phone: [facility] Payers Date Payer Category Payer Self-pay [id number] 2017 Private Health Insurance [id number] 2014 Private Health Insurance xxx [id number] 1969 Unknown [id number] 1969 Unknown [id number] 1969 Unknown [id number] 1969 Unknown [id number] 1959 Private Health Insurance [facility] [id number] Private Health Insurance [facility] [id number] Unknown [id number] Unknown [id number] Social History Date Type Detail Facility Start: 08-26-2020 Tobacco smoking stat [facility] Unknown if ever smoked [facility] Start: 1970 Sex Assigned At Not on file [facility] Start: 06-09-2021 End: 06-19-2021 Exposure to SARS-CoV-2 (event) Not sure [facility] Start: 08-31-2020 End: 09-01-2020 Tobacco smoking status NHIS Smokes tobacco daily [facility] History of tobacco use Cigarette Smoker [facility] Start: 08-31-2020 End: 09-17-2022 Cigarettes smoked current (pack per day) - Reported 1 [facility] Start: 08-31-2020 End: 09-01-2020 Tobacco use and exposure Smokeless tobacco non-user [facility] Start: 01-17-2021 Alcohol intake Lifetime non-d jaya (finding) [facility] Start: 09-01-2020 History SDOH Alcohol Frequency 1 [facility] Start: 1970 Sex Assigned At Female C [facility] Start: 07-20-20[facility] Start: 01-17-2021 End: 09-17-2022 Tobacco use panel [facility] Adult Depression Screening Assessment 0 [facility] Start: 09-01-2020 Gender identity Identifies as female gender (finding) [facility] Start: 09-01-2020 Sexual orientation Heterosexual (fin ding) [facility] Clinical Notes 07-05-2021 to 05-16-2023 Note Date & Type Note Facility 05-16-2023 Evaluation note Encounter Date Diagnosis Assessment Notes May, Obesity (ICD-10 - E66.9) May, Thyroid nodule (ICD-10 - E04.1) May, Depression (ICD-10 - F32.9) May, Impaired fasting glucose (ICD-10 - R73.01) May, Abnormal kidney function (ICD-10 - N28.9) May, Nonalcoholic fatty liver disease (ICD-10 - K76.0) May, Primary hypertension (ICD-10 - I10) May, Mixed hyperlipidemia (ICD-10 - E78.2) [facility] Other 01-29-2024 Evaluation note* Encounter Date Diagnosis Assessment Notes Treatment Notes Treatment Clinical Notes Apr, Obesity (ICD-10 - E66.9) Patient is down 8.5 pounds since last visit 6 weeks ago, or 3% weight loss since starting with us 6 weeks ago.Continues to tolerate and respond positively to lifestyle changes alone she has done a complete 180 degree turn with her diet. She feels better overall, her mood is better fatigue is better her clothes are fitting better and she is sleeping better with an average of 6 to 7 hours versus previously 3 to 4 hours at night.Labs up-to-date consider A1c recheck first week of June.Exercise counseling-she is establishing with our nurse emergency room this week discussed in detail exercise interventions to promote lean tissue mass/muscle preservation during any weight loss attempt, this should be a primary intervention for all health and weight goals.Dietary surveillance and counseling: Areas for improvement discussed today: Praised her and all of her efforts and success so far and engaging with healthy eating. Cautioned against making extreme changes all at once that may be difficult to stick to but patient continues to reiterate that the eating has been easy to incorporate and she feels good about it.. Continue to lead with Lean protein sources with each meal and snack. Continue to work on small sustainable changes to promote overall health F/u: 6 weeks Needs to establish with dietitian Cautioned against extreme changes. We also discussed rapid weight loss and how this can also work against her as hunger hormones compensate as moderate weight loss occurs. We will follow along and support where needed. Apr, Impaired fasting glucose (ICD-10 - R73.01) Apr, Gastroesophageal reflux disease with esophagitis without hemorrhage (ICD-10 - K21.00) Reduce GERD inducing foods Apr, Cigarette nicotine dependence without complication (ICD-10 - F17.210) Apr, Nonalcoholic fatty liver disease (ICD-10 - K76.0) Fib 4 score 0.69 which does help to exclude advanced liver fibrosis. Cholesterol is one of our primary goals for weight loss. Praised her for incorporating items such as oatmeal which can help support healthy cholesterol levels. Apr, Mixed hyperlipidemia (ICD-10 - E78.2) Most recent cholesterol ratio 7.2 which does put patient at higher cardiometabolic risk. Apr, Daytime sleepiness (ICD-10 - R40.0) Apr, Depression (ICD-10 - F32.9) Apr, Prediabetes (ICD-10 - R73.09) Apr, Anxiety (ICD-10 - F41.9) Apr, Sleep apnea (ICD-10 - G47.30) Apr, Abnormal kidney function (ICD-10 - N28.9) Apr, Thyroid nodule (ICD-10 - E04.1) Apr, Encounter for weight management (ICD-10 - Z76.89) [facility] Other 01-22-2024 Evaluation note* Encounter Date Diagnosis Assessment Notes Treatment Notes Treatment Clinical Notes Apr, Obstructive sleep apnea (ICD-10 - G47.33) Discussed with pt that symptoms are consistent with sleep apnea. Symptoms include snoring, gasping chocking episodes. with frequent awakenings. Has been tested in the past and did not follow through with getting the machine. Order sent. Apr, Loud snoring (ICD-10 - R06.83) Apr, Frequent nocturnal awakening (ICD-10 - G47.00) Apr, Gasping for breath (ICD-10 - R06.89) Apr, Anxiety (ICD-10 - F41.9) She is currently following with a counselor and has an appt with psychiatry this week for medication management. Apr, Muscle twitching (ICD-10 - R25.3) The patient was seen today for ER/Urgent Care follow-up. All available records were reviewed and discussed with the patient. All new medications prescribed were reviewed. Any additional changes are noted above. Discussed to monitor symptoms and call with any worsening or increased frequency. Pt verbalizes understanding and agrees with plan of care. Apr, Intermittent claudication (ICD-10 - I73.9) Discussed with patient symptoms -- including pain in the lower extremities/calf with walking or any exertion. She is a smoker as well. Discussed further evaluation with work-up for the intermittent claudication and pt agrees order sent. Will call with results and may need referral to Vascular and pt verbalizes understanding and agrees to plan of care. Apr, Primary hypertension (ICD-10 - I10) TO goal. [...] You have been given relevant education handouts. Apr, Cigarette nicotine dependence without complication (ICD-10 - F17.210) She is wanting to quit and will start the process once she gets her anxiety under control with treatment through the psychiatrist We discussed possible complications of smoking including [...] and willingness to quit at each appointment. Apr, Severe obesity (BMI >= 40) (ICD-10 - E66.01) [facility] Other 12-04-2023 Evaluation note* Encounter Date Diagnosis Assessment Notes Treatment Notes Treatment Clinical Notes Mar, Obesity (ICD-10 - E66.9) Findings [...] Consider Wegovy if approved by her spouses [facility] insurance although not physically available for director toxicology at this time. I agree with the patient and the judicial use of Ozempic in the setting of a nationwide shortage for diabetes patients which was her concern not necessarily of the medication itself. Strongly consider Wellbutrin/naltrexo ne as a secondary medication with her history [...] She is open to establishing with our nurse emergency room for guidance on physical activity at a [...] medication after consideration to any other underlying etiologies/treatmen t. Patient to work closely with dietitian to [...] We will perform surveillance t/o our visits. [place] sleep score 19 Mar, Abnormal kidney function [...] thyroidectomy. She denies any history of cancer. [facility] Other 12-04-2023 Evaluation note* Encounter Date Diagnosis Assessment Notes Treatment Notes Treatment Clinical Notes Mar, Other Nga sent in error, [facility]. [facility] Other 11-30-2023 Evaluation note* Encounter Date Diagnosis Assessment Notes Treatment Notes Treatment Clinical Notes Feb, Nonalcoholic fatty liver disease (ICD-10 - K76.0) [facility] Other 11-30-2023 Evaluation note* Encounter Date Diagnosis Assessment Notes Treatment Notes Treatment Clinical Notes Feb, Mixed hyperlipidemia (ICD-10 - E78.2) Feb, Stage 3a chronic kidney disease (ICD-10 - N18.31) [facility] Other 11-22-2023 Evaluation note* Encounter Date Diagnosis [...] [BMI ] 40.0-44.9, adult (ICD-10 - Z68.41) [facility] Other 11-09-2023 Miscellaneous Notes* Telephone Encounter - Sylvia Amador RN - 02/14/2023 3:01 PM EST Called and spoke to patient about the changed appointment. She verbalized understanding and states that date and time will work. No further questions. Sylvia Amador RN * Telephone Encounter - Sylvia Amador RN - 02/14/2023 8:46 AM EST PSS: I have called and sent a [email or web address] message to this patient. Can we schedule an appointment with labs and notify patient. Thanks. Sylvia Amador RN * Telephone Encounter - Fatou Dutton PA-C - 02/14/2023 8:32 AM EST Please call and schedule patient for a follow up and labs. She has not been seen since 2020 and should have a follow up. Fatou Dutton PA-C [facility] NoteHNO ID: [id number] Author: YASIR Gonzales Service: ? Author Type: Practicing Dermatologist Type: Progress Notes Filed: 09/24/2022 4:17 PM Note Text: Patient appears on the [facility] First Time Treatment List for a non-oncology treatment. No psychosocial assessment is indicated. ROLDAN Gonzales-[facility]06-19-2023 History of Present illness Narrative* YASIR Gonzales - 09/24/2022 4:16 PM EDT Patient appears on the [facility] First Time Treatment List for a non-oncology treatment. No psychosocial assessment is indicated. SUNNY Gonzales documented in [facility]06-[facility]-2023 NoteHNO ID: [id number] Author: Wendy Segura RN Service: ? Author Type: Registered Nurse Type: Progress Notes Filed: 09/17/2022 11:35 AM Note Text: CMP drawn X2 with slab grinder reporting that sample was hemolyzed. 2nd reporting was after pt was discharged. CMP reordered to be drawn when pt returns next week for additional iron.[facility]06-08-2023 Miscellaneous Notes* Telephone Encounter - Cherri Dickson RN - 09/13/2022 10:29 AM EDT Hi Maria Fernanda, we are working on the authorization for your infusion. Someone will call you once we can get you scheduled. Take Care, Cherri Dickson RN * Telephone Encounter - Yanely Yañez [...] placed Fatou Dutton PA-C documented in [facility]03-30-[facility]22 Miscellaneous Notes* Telephone Encounter - Tiarra Zambrano LPN - 07/05/2021 1:15 PM EDT VM left for patient to call our office and also to check message in [email or web address]. Please see message noted below by Dr. [...] 2021 This note was partially generated using Nitro voice recognition system, and there may be [...] 06/16/2021 2:05 PM EST Patient sent a [employer] message: having heart issues on 06/16/2021. I [...] Please advise, thank you. documented in this encounterTwin [facility] HospitalEvaluchristiana hospital noteNo assessment information availableRegional Medical Center Work Phone: Evaluation note* Diagnosis Iron deficiency anemia due to chronic blood loss- Primary Iron deficiency anemia secondary to blood loss (chronic) [facility] Diagnosis Iron deficiency anemia due to chronic blood loss- Primary Iron deficiency anemia secondary to blood loss (chronic) documented in this encounter [facility]* Diagnosis Iron deficiency anemia due to chronic blood loss- Primary Iron deficiency anemia secondary to blood loss (chronic) documented in this encounter [facility] note* Diagnosis Iron deficiency anemia due to chronic blood loss- Primary Iron deficiency anemia secondary to blood loss (chronic) documented in this encounter [facility] note* Diagnosis Iron deficiency anemia due to chronic blood loss- Primary Iron deficiency anemia secondary to blood loss (chronic) Malaise and fatigue Other malaise and fatigue documented in this encounter [facility] noteNo InformationNortEvangelical [facility] Other History general Narrative - Reported* Type [...] biopsy 10/2022 Hospitalization History See surgical hx [facility] Other [place] general Narrative - Reported* Type Description Date [...] Surgical History Endometrial biopsy 10/2022 Surgical History [place] teeth extraction Surgical History Full teeth extraction Hospitalization History See surgical hx [facility] Other History general Narrative - Reported* Type [...] Surgical History Endometrial biopsy 10/2022 Surgical History [place] teeth extraction Surgical History Full teeth extraction Hospitalization History [facility] anxiety and heart palpitations 04/23/23 Hospitalization History See above [facility] Other Reason for visit NarrativeReferral Sylvia Chavez [facility] Other Summary Purpose Family History Relationship Condition [...] or prosecute any alcohol or drug abuse patient.[facility] HospitalIn the event this information is protected by the Federal Confidentiality of Alcohol and Drug Abuse Patient Records regulations: The Federal rules restrict any use of the information to criminally investigate or prosecute any alcohol or drug abuse patient.[facility] HospitalIn the event this information is protected by the Federal Confidentiality of Alcohol and Drug Abuse Patient Records regulations: The Federal rules restrict any use of the information to criminally investigate or prosecute any alcohol or drug abuse patient.[facility] HospitalIn the event this information is protected by the Federal Confidentiality of Alcohol and Drug Abuse Patient Records regulations: The Federal rules restrict any use of the information to criminally investigate or prosecute any alcohol or drug abuse patient.[facility] HospitalIn the event this information is protected by the Federal Confidentiality of Alcohol and Drug Abuse Patient Records regulations: The Federal rules restrict any use of the information to criminally investigate or prosecute any alcohol or drug abuse patient.[facility] HospitalIn the event this information is protected by the Federal Confidentiality of Alcohol and Drug Abuse Patient Records regulations: The Federal rules restrict any use of the information to criminally investigate or prosecute any alcohol or drug abuse patient.[facility] HospitalIn the event this information is protected by the Federal Confidentiality of Alcohol and Drug Abuse Patient Records regulations: The Federal rules restrict any use of the information to criminally investigate or prosecute any alcohol or drug abuse patient.[facility] HospitalIn the event this information is protected by the Federal Confidentiality of Alcohol and Drug Abuse Patient Records regulations: The Federal rules restrict any use of the information to criminally investigate or prosecute any alcohol or drug abuse patient.[facility] INFORMATION SOURCE (unrecogn ized section and content) DATE CREATED AUTHOR 10/04/2020 [facility] DATE CREATED AUTHOR AUTHOR'S ORGANIZ ATION 07/31/2022 [facility] DATE CREATED AUTHOR AUTHOR'S ORGANIZ ATION 10/12/2022 [facility] DATE CREATED AUTHOR AUTHOR'S ORGANIZ ATION 05/06/2023 [facility] Reason for Visit (unrecogniz ed section and content) HM Compounded semaglutide Reason Comments Appointment Specialty Diagnoses / Procedures Referred By Contac t Referred To Contact Diagnoses Iron deficiency anemia due to chronic blood loss Procedures IRON SUCROSE INJECTION PER 1 MG Fatou Dutton PA-C [address] [place] [address] [facility] Ellen [address] [place] [address] Referral ID Status Reason Start Date Expiration Date V isits Requested Visits Authorized [id number] Authorized 09/12/2022 04/07/2023 1 99 Care Teams (unrecognized sec tion and content) Claims Representative Relationship Specialty Start Date End Date Maury Wallace Sr. PCP - General Family Practice 02/16/15 Team Status: Inactive Member Role Status Dates Maury Wallace , Primary Care Provider Active Chris Borden DO Attending Provider Active Team Status: Active Member Role Status Dates Maury Wallace , Primary Care Provider Active Claims Representative Relationship Specialty Start Date End Date Maury Wallace Sr. PCP - [facility] 02/16/15 Claims Representative Relationship Specialty Start Date End Date Maury Wallace Sr. PCP - [facility] Medicine 02/16/15 Claims Representative Relationship Specialty Start Date End Date Maury Wallace Sr. PCP - [facility] 02/16/15 Claims Representative Relationship Specialty Start Date End Date Maury Wallace Sr. PCP - [facility] 02/16/15 Claims Representative Relationship Specialty Start Date End Date Maury Wallace Sr., DO PCP - General Family Medicine 02/16/15 Goals (unrecognized section and content) Goals may be documented in a n alternate sectionNo InformationNo InformationNo InformationNo InformationNo InformationNo InformationNo InformationNo InformationNo InformationNo InformationNo [...] BE BASED ON THE PRIMARY CLINICAL RECORDS. [facility]. provides no warranty or guarantee [id number] the accuracy or completeness of information in this document.
== END 2023-05-21 20:53 | disposition home or self-care (01) ==
LOC: SLEEP 20:52
PROVIDERS: PCP Nurse Practitioner Family; Visit Provider Nurse Practitioner Family
DX: G47.33 Obstructive sleep apnea (adult) (pediatric) (principal)
CPT/HCPCS: 95810

== ENCOUNTER 2023-05-30 07:50 | Outpatient (OUT) | payer OTHER, SELFPAY ==
--- OUTSIDE RECORDS SUMMARY | 2023-05-30 07:54 | XMS_ITS | CCD ---
Author Name Unknown Address [address] [place] [address] Organization [facility] Care Team Providers Care Licensed Clinical Social Worker Name Role Phone House Sr., Maury Snell Primary Care Provider Himanshu, DO Mendiola Primary Care Provider DO Chris Borden Attending Provider [place], DR MENDIOLA Admitting Unavailable HOUSE, DR MENDIOLA [...] YOSEF ZHANG Referring Unavailable HOUSE SR, MAURY [facility] Primary Care Unavai lable CHIARA DUTTONY M Referring Unavailable HOUSE SR, MAURY [facility] Primary Care Unavai lable HOUSE SR, MAURY [facility] Primary Care Unavai lable CHIARA DUTTONY M Referring Unavailable CHIARA DUTTONY M Referring Unavailable HOUSE SR, MAURY [facility] Primary Care Unavai labvicky DUTTON FATOU M Referring Unavailable HOUSE SR, MAURY [facility] Unavai lable HOUSE SR, MAURY [facility] Primary [facility] Unavai lable House Sr., Maury [facility] Prov ider Sylvia Chavez Unavailable [phone] Zoila Grant Unavailable Luisa Fabian Unavailable Dani Lord Admitting Unavailab Dani Rollins Attending Unavailab Sylvia Shelley Primary Care Unavailable Sylvia Chavez Admitting Unavailable Sylvia Chavez Primary Care Unavailable Sylvia Chavez Attending Unavailable Allergies Allergy Classification Reported Allergen(s) Allergy Type Date of Onset Reaction(s) Facility Opioid Agonists (1 source) Meperidine Drug Allergy 08-26-2020 Unknown [facility] (20 sources) Meperidine; Translations: [MEPERIDINE] Drug Allergy 08-26-2020 Unknown [facility] (13 sources) Clindamycin; Translations: [clindamycin] Drug Allergy 07-20-2021 Rash, Unknown [facility] (1 source) Meperidine Drug Allergy [facility] (1 source) Meperidine Drug Allergy 07-20-2021 [facility] Medications Current Medications Medication Drug Class(es) [...] in NaCl (PF) 0.9% 10 mL injection ([employer]) (1 source) Start: 09-01-2020 End: 12-01-2021 perflutren [...] 12/20/2020 Active take 1 capsule by mo [facility] every twenty-four hours Omeprazole 20 MG 1 capsule Orally Once a day for 90 days Active Comment on above: Take 1 capsule by mo [facility] twice daily before meals. Problems Active Problems [...] 03-11-2023 HbA1c (Bld) [Mass fraction] 6.2 % [employer] Other HbA1c (Bld) [Mass fraction]o n 03-11-2023 A1C HEMOGLOBIN [employer] [facility] myaNUMBER Other Comprehensive metabolic 2000 panelon 09-27-2022 Albumin [Mass/Vol] 4.5 g/dL Normal 3.9-4.9 [facility] Comment on above: Order Comment: Speci men Type: BLOOD SPECIMEN Ordering Facility: [facility] Address: [address] [address] Performed By: #### 2 4323-8 #### [facility] CLIA [id number] [address] [place] [address] 59296 ALP [Catalytic activity/Vol] 106 U/L Normal 34-123 [facility] Comment on above: Order Comment: Speci marion Type: BLOOD SPECIMEN Ordering Facility: [facility] Address: [address] [address] Performed By: #### 2 4323-8 #### [facility] CLIA [id number] [address] [place] [address] 65081 ALT [Catalytic activity/Vol] 25 U/L Normal 7-38 [facility] Comment on above: Order Comment: Neldai men Type: BLOOD SPECIMEN Ordering Facility: [facility] Address: [address] [address] Performed By: #### 2 4323-8 #### [facility] CLIA [id number] [address] [place] [address] 49483 Anion gap [Moles/Vol] 9 mmol/L Normal 9-18 [facility] Comment on above: Order Comment: Speci men Type: BLOOD SPECIMEN Ordering Facility: [facility] Address: [address] [address] Performed By: #### 2 4323-8 #### [facility] CLIA [id number] [address] [place] [address] 26341 AST [Catalytic activity/Vol] 19 U/L Normal 13-35 [facility] Comment on above: Order Comment: Speci men Type: BLOOD SPECIMEN Ordering Facility: [facility] Address: [address] [address] Performed By: #### 2 432-8 #### [facility] CLIA [id number] [address] [place] [address] 43571 Bilirubin [Mass/Vol] mg/dL Low 0.2-1.3 [facility] Comment on above: Order Comment: Speci men Type: BLOOD SPECIMEN Ordering Facility: [facility] Address: [address] [address] Performed By: #### 2 4323-8 #### [facility] CLIA [id number] [address] [place] [address] 91161 Calcium [Mass/Vol] 9.8 mg/dL Normal 8.5-10.2 [facility] Comment on above: Order Comment: Speci men Type: BLOOD SPECIMEN Ordering Facility: [facility] Address: [address] [address] Performed By: #### 2 4323-8 #### [facility] CLIA [id number] [address] [place] [address] 04470 Chloride [Moles/Vol] 99 mmol/L Normal 97-105 [facility] Comment on above: Order Comment: Speci men Type: BLOOD SPECIMEN Ordering Facility: [facility] Address: [address] [address] Performed By: #### 2 4323-8 #### [facility] CLIA [id number] [address] [place] [address] CO2 [Moles/Vol] 28 mmol/L Normal 22-30 [facility] Comment on above: Order Comment: Speci men Type: BLOOD SPECIMEN Ordering Facility: [facility] Address: [address] [place] [address] Performed By: #### 2 4323-8 #### [facility] CLIA [id number] [address] [place] [address] 39956 Creatinine [Mass/Vol] 1.09 mg/dL High 0.58-0.96 [facility] Comment on above: Order Comment: Speci men Type: BLOOD SPECIMEN Ordering Facility: [facility] Address: [address] [place] [address] Performed By: #### 2 4323-8 #### [facility] CLIA [id number] [address] [place] [address] 75950 ESTIMATED GLOMERULAR FILTRATION RATE 61 mL/min/1.73m??? Normal >=60 [facility] Comment on above: Order Comment: Speci men Type: BLOOD SPECIMEN Ordering Facility: [facility] Address: [address] [place] [address] Result Comment: Yeimy mated Glomerular Filtration Rate [...] GFR. Performed By: #### 2 4323-8 #### [facility] CLIA [id number] [address] [place] [address] 73368 Glucose [Mass/Vol] 128 mg/dL High 74-99 [facility] Comment on above: Order Comment: Speci men Type: BLOOD SPECIMEN Ordering Facility: [facility] Address: [address] [place] [address] Result Comment: The [place] Diabetes Association (ADA) provides guidance for cutoff [...] Standards of Medical Care in Diabetes 2016, [place] [employer]. Diabetes Care. 2016.39(Suppl 1). Performed By: #### 2 4323-8 #### [facility] CLIA [id number] [address] [place] [address] 70645 Potassium [Moles/Vol] 3.9 mmol/L Normal 3.7-5.1 [facility] Comment on above: Order Comment: Speci men Type: BLOOD SPECIMEN Ordering Facility: [facility] Address: [address] [address] Performed By: #### 2 4323-8 #### [facility] CLIA [id number] [address] [place] [address] 23588 Protein [Mass/Vol] 7.4 g/dL Normal 6.3-8.0 [facility] Comment on above: Order Comment: Speci men Type: BLOOD SPECIMEN Ordering Facility: [facility] Address: [address] [address] Performed By: #### 2 4323-8 #### [facility] CLIA [id number] [address] [place] [address] 59332 Sodium [Moles/Vol] 136 mmol/L Normal 136-144 [facility] Comment on above: Order Comment: Speci men Type: BLOOD SPECIMEN Ordering Facility: [facility] Address: [address] [address] Performed By: #### 2 4323-8 #### [facility] CLIA [id number] [address] [place] [address] [place] [address] Urea nitrogen [Mass/Vol] 20 mg/dL Normal 7-21 [facility] Comment on above: Order Comment: Sanjana schultz Type: BLOOD SPECIMEN Ordering Facility: [facility] Address: [place] [address] Performed By: #### 2 4323-8 #### [facility] CLIA [id number] [address] [place] [address] CNSWon 09-24-2022 CNSW Social Work (HEMASA) MARIA FERNANDA VALLECILLO ([id number]) 1970 F Date Time Provider Department 09/24/22 [facility] During your visit today, we recorded the following information about you: YASIR Gonzales 09/24/2022 4:17 PM Signed Patient appears on the [facility] First Time Treatment List for a [...] Status:Closed by CASH IVORY on 09/24/22 Normal [facility] MARIA FERNANDA VALLECILLO ([id number]) 1970 F Date Time Provider Department 09/14/22 [...] Status:Closed by SUMMER NUGENT on 09/14/22 Normal [facility] CBC W Auto Differential pane l (Bld)on 09-10-2022 Basophils (Bld) [#/Vol] 0.04 10*3/uL Normal <0.11 [facility] Comment on above: Order Comment: Speci men Type: BLOOD SPECIMEN Ordering Facility: [facility] Address: [address] [address] Performed By: #### 1 4196-0, 87362-0 #### [facility] CLIA [id number] [address] [place] [address] 06329 Basophils/100 WBC (Bld) 0.5 % Normal [facility] Comment on above: Order Comment: Speci men Type: BLOOD SPECIMEN Ordering Facility: [facility] Address: [address] [address] Performed By: #### 1 4196-0, 78341-6 #### [facility] CLIA [id number] [address] [place] [address] 58824 Differential cell count method Nom (Bld) Auto Normal [facility] Comment on above: Order Comment: Speci men Type: BLOOD SPECIMEN Ordering Facility: [facility] Address: [address] [address] Performed By: #### 1 4196-0, 62090-1 #### [facility] CLIA [id number] [address] [place] [address] 20397 Eosinophils (Bld) [#/Vol] 0.20 10*3/uL Normal <0.46 [facility] Comment on above: Order Comment: Speci men Type: BLOOD SPECIMEN Ordering Facility: [facility] Address: [address] [address] Performed By: #### 1 4196-0, 54316-7 #### [facility] CLIA [id number] [address] [place] [address] 40505 Eosinophils/100 WBC (Bld) 2.7 % Normal [facility] Comment on above: Order Comment: Speci men Type: BLOOD SPECIMEN Ordering Facility: [facility] Address: [address] [place] [address] Performed By: #### 1 4196-0, 66838-1 #### [facility] CLIA [id number] [address] [place] [address] 91302 Erythrocyte distribution width (RBC) [Ratio] 14.6 % Normal 11.5-15.0 [facility] Comment on above: Order Comment: Speci men Type: BLOOD SPECIMEN Ordering Facility: [facility] Address: [address] [place] [address] Performed By: #### 1 4196-0, 84058-9 #### [facility] CLIA [id number] [address] [place] [address] 62925 Hematocrit (Bld) [Volume fraction] 45.8 % Normal 36.0-46.0 [facility] Comment on above: Order Comment: Speci men Type: BLOOD SPECIMEN Ordering Facility: [facility] Address: [address] [place] [address] Performed By: #### 1 4196-0, 94341-8 #### [facility] CLIA [id number] [address] [place] [address] 65160 Hemoglobin (Bld) [Mass/Vol] 15.2 g/dL Normal 11.5-15.5 [facility] Comment on above: Order Comment: Speci men Type: BLOOD SPECIMEN Ordering Facility: [facility] Address: [address] [place] [address] Performed By: #### 1 4196-0, 11279-1 #### [facility] CLIA [id number] [address] [place] [address] 60961 Immature granulocytes (Bld) [#/Vol] 0.03 10*3/uL Normal <0.10 [facility] Comment on above: Order Comment: Speci men Type: BLOOD SPECIMEN Ordering Facility: [facility] Address: [address] [address] Performed By: #### 1 4196-0, 58212-8 #### [facility] CLIA [id number] [address] [place] [address] 55347 Immature granulocytes/100 WBC (Bld) 0.4 % Normal [facility] Comment on above: Order Comment: Speci men Type: BLOOD SPECIMEN Ordering Facility: [facility] Address: [address] [address] Performed By: #### 1 4196-0, 71812-9 #### [facility] CLIA [id number] [address] [place] [address] 58474 Lymphocytes (Bld) [#/Vol] 2.66 10*3/uL Normal 1.00-4.00 [facility] Comment on above: Order Comment: Speci men Type: BLOOD SPECIMEN Ordering Facility: [facility] Address: [address] [address] Performed By: #### 1 4196-0, 13418-7 #### [facility] CLIA [id number] [address] [place] [address] 94789 Lymphocytes/100 WBC (Bld) 35.5 % Normal [facility] Comment on above: Order Comment: Speci men Type: BLOOD SPECIMEN Ordering Facility: [facility] Address: [address] [address] Performed By: #### 1 4196-0, 92837-0 #### [facility] CLIA [id number] [address] [place] [address] 99453 MCH (RBC) [Entitic mass] 28.3 pg Normal 26.0-34.0 [facility] Comment on above: Order Comment: Speci men Type: BLOOD SPECIMEN Ordering Facility: [facility] Address: [address] Performed By: #### 1 4196-0, 79932-8 #### [facility] CLIA [id number] [address] [place] [address] 36501 MCHC (RBC) [Mass/Vol] 33.2 g/dL Normal 30.5-36.0 [facility] Comment on above: Order Comment: Speci men Type: BLOOD SPECIMEN Ordering Facility: [facility] Address: [address] [address] Performed By: #### 1 4196-0, 07760-1 #### [facility] CLIA [id number] [address] [place] [address] 31512 MCV (RBC) [Entitic vol] 85.3 fL Normal 80.0-100.0 [facility] Comment on above: Order Comment: Speci men Type: BLOOD SPECIMEN Ordering Facility: [facility] Address: [address] [address] Performed By: #### 1 4196-0, 95879-8 #### [facility] CLIA [id number] [address] [place] [address] 68998 Monocytes (Bld) [#/Vol] 0.40 10*3/uL Normal <0.87 [facility] Comment on above: Order Comment: Speci men Type: BLOOD SPECIMEN Ordering Facility: [facility] Address: [address] [address] Performed By: #### 1 4196-0, 66994-7 #### [facility] CLIA [id number] [address] [place] [address] 61114 Monocytes/100 WBC (Bld) 5.3 % Normal [facility] Comment on above: Order Comment: Speci men Type: BLOOD SPECIMEN Ordering Facility: [facility] Address: [address] [address] Performed By: #### 1 4196-0, 75571-1 #### [facility] CLIA [id number] [address] [place] [address] [place] [address] Neutrophils (Bld) [#/Vol] 4.17 10*3/uL Normal 1.45-7.50 [facility] Comment on above: Order Comment: Speci men Type: BLOOD SPECIMEN Ordering Facility: [facility] Address: [address] [address] Performed By: #### 1 4196-0, 45352-5 #### [facility] CLIA [id number] [address] [place] [address] 60129 Neutrophils/100 WBC (Bld) 55.6 % Normal [facility] Comment on above: Order Comment: Speci men Type: BLOOD SPECIMEN Ordering Facility: [facility] Address: [address] [address] Performed By: #### 1 4196-0, 17691-7 #### [facility] CLIA [id number] [address] [place] [address] 08426 Nucleated RBC (Bld) [#/Vol] 10*3/uL Normal <0.01 [facility] Comment on above: Order Comment: Speci men Type: BLOOD SPECIMEN Ordering Facility: [facility] Address: [address] [place] [address] Performed By: #### 1 4196-0, 86584-8 #### [facility] CLIA [id number] [address] [place] [address] 21164 Nucleated RBC/100 WBC (Bld) [Ratio] 0.0 /100 WBC Normal [facility] Comment on above: Order Comment: Speci men Type: BLOOD SPECIMEN Ordering Facility: [facility] Address: [address] [address] Performed By: #### 1 4196-0, 18668-6 #### [facility] CLIA [id number] [address] [place] [address] 61229 Platelet mean volume (Bld) [Entitic vol] 9.1 fL Normal 9.0-12.7 [facility] Comment on above: Order Comment: Speci men Type: BLOOD SPECIMEN Ordering Facility: [facility] Address: [address] [address] Performed By: #### 1 4196-0, 42484-2 #### [facility] CLIA [id number] [address] [place] [address] 02874 Platelets (Bld) [#/Vol] 293 10*3/uL Normal 150-400 [facility] Comment on above: Order Comment: Speci men Type: BLOOD SPECIMEN Ordering Facility: [facility] Address: [address] [address] Performed By: #### 1 4196-0, 51901-7 #### [facility] CLIA [id number] [address] [place] [address] 44514 RBC (Bld) [#/Vol] 5.37 10*6/uL High 3.90-5.20 [facility] Comment on above: Order Comment: Speci men Type: BLOOD SPECIMEN Ordering Facility: [facility] Address: [address] [place] [address] Performed By: #### 1 4196-0, 55928-3 #### [facility] CLIA [id number] [address] [place] [address] 96098 WBC (Bld) [#/Vol] 7.50 10*3/uL Normal 3.70-11.00 [facility] Comment on above: Order Comment: Speci men Type: BLOOD SPECIMEN Ordering Facility: [facility] Address: [address] [place] [address] Performed By: #### 1 4196-0, 58168-4 #### [facility] CLIA [id number] [address] [place] [address] 30453 Ferritin SerPl-mCncon 2022 Ferritin [Mass/Vol] 30.8 ng/mL Normal 14.7-205.1 [facility] Comment on above: Order Comment: Speci men Type: BLOOD SPECIMEN Ordering Facility: [facility] Address: [address] [place] [address] Performed By: #### 5 0190-8, 2276-4 #### [facility] CLIA [id number] [address] [place] [address] [place] Iron and Iron binding capaci ty panelon 09-10-2022 Iron [Mass/Vol] 40 ug/dL Low 41-186 [facility] Comment on above: Order Comment: Speci men Type: BLOOD SPECIMEN Ordering Facility: [facility] Address: [address] Performed By: #### 5 0190-8, 2275-4 #### [facility] CLIA [id number] [address] [place] [address] [place] Iron binding capacity [Mass/Vol] 328 ug/dL Normal 232-386 [facility] Comment on above: Order Comment: Speci men Type: BLOOD SPECIMEN Ordering Facility: [facility] Address: [address] [place], [place] [address] Performed By: #### 5 0190-8, 2275-07 #### [facility] CLIA [id number] [address] [place] [address] [place] Iron/TIBC [Molar ratio] 12.2 % Low 15.0-57.0 [facility] Comment on above: Order Comment: Speci men Type: BLOOD SPECIMEN Ordering Facility: [facility] Address: [address] [place] [address] Performed By: #### 5 0190-8, 2275-07 #### [facility] CLIA [id number] [address] [place] [address] [place] Retics #on 09-10-2022 Reticulocytes (Bld) [#/Vol] 0.90834 10*3/uL High 0.018-0.100 [facility] Comment on above: Order Comment: Speci men Type: BLOOD SPECIMEN Ordering Facility: [facility] Address: [address] [place] [address] Performed By: #### 1 4196-0, 56861-4 #### [facility] CLIA [id number] [address] [place] [address] 62032 Reticulocytes (Bld) [#/Vol]o n 09-10-2022 Reticulocytes/100 RBC (Bld) 2.2 % High 0.4-2.0 [facility] Comment on above: Order Comment: Speci men Type: BLOOD SPECIMEN Ordering Facility: [facility] Address: [address] [address] Performed By: #### 1 4196-0, 25626-4 #### [facility] CLIA [id number] [address] [place] [address] 54742 FSHon 07-28-2022 FSH 25.2 mIU/mL Normal [facility] Comment on above: Result Comment: Adul t Female: Follicular phase 3.5 - 12.5 Ovulation phase 4.7 - 21.5 Luteal phase 1.7 - 7.7 Postmenopausal 25.8 - 134.8 Performed By: #### L [facility] #### [facility] [address] [address] [address] Sarah Philippe XR CHEST 2 Von [...] by: ABNER BERNABE Date: 2022-07-27 10:29 Normal [facility] CBC W Auto Differential pane l (Bld)on 03-14-2022 Basophils (Bld) [#/Vol] 0.05 10*3/uL Normal <0.11 [facility] Comment on above: Order Comment: Speci men Type: BLOOD SPECIMEN Ordering Facility: [facility] Address: [address] [address] Performed By: #### 5 7021-8 #### [facility] CLIA [id number] [address] [place] [address] 68805 Basophils/100 WBC (Bld) 0.6 % Normal [facility] Comment on above: Order Comment: Speci men Type: BLOOD SPECIMEN Ordering Facility: [facility] Address: [address] [address] Performed By: #### 5 7021-8 #### [facility] CLIA [id number] [address] [place] [address] 63090 Differential cell count method Nom (Bld) Auto Normal [facility] Comment on above: Order Comment: Speci men Type: BLOOD SPECIMEN Ordering Facility: [facility] Address: [address] [address] Performed By: #### 5 7021-8 #### [facility] CLIA [id number] [address] [place] [address] 18849 Eosinophils (Bld) [#/Vol] 0.22 10*3/uL Normal <0.46 [facility] Comment on above: Order Comment: Speci men Type: BLOOD SPECIMEN Ordering Facility: [facility] Address: [address] [address] Performed By: #### 5 7021-8 #### [facility] CLIA [id number] [address] [place] [address] 23130 Eosinophils/100 WBC (Bld) 2.4 % Normal [facility] Comment on above: Order Comment: Speci men Type: BLOOD SPECIMEN Ordering Facility: [facility] Address: [address] [address] Performed By: #### 5 7021-8 #### [facility] CLIA [id number] [address] [place] [address] 70054 Erythrocyte distribution width (RBC) [Ratio] 14.0 % Normal 11.5-15.0 [facility] Comment on above: Order Comment: Speci men Type: BLOOD SPECIMEN Ordering Facility: [facility] Address: [address] [address] Performed By: #### 5 7021-8 #### [facility] CLIA [id number] [address] [place] [address] 27183 Hematocrit (Bld) [Volume fraction] 43.4 % Normal 36.0-46.0 [facility] Comment on above: Order Comment: Speci men Type: BLOOD SPECIMEN Ordering Facility: [facility] Address: [address] [place] [address] Performed By: #### 5 7021-8 #### [facility] CLIA [id number] [address] [place] [address] Hemoglobin (Bld) [Mass/Vol] 14.6 g/dL Normal 11.5-15.5 [facility] Comment on above: Order Comment: Speci men Type: BLOOD SPECIMEN Ordering Facility: [facility] Address: [address] [place] [address] Performed By: #### 5 7021-8 #### [facility] CLIA [id number] [address] [place] [address] 35835 Immature granulocytes (Bld) [#/Vol] 0.03 10*3/uL Normal <0.10 [facility] Comment on above: Order Comment: Speci men Type: BLOOD SPECIMEN Ordering Facility: [facility] Address: [address] [place] [address] Performed By: #### 5 7021-8 #### [facility] CLIA [id number] [address] [place] [address] 76601 Immature granulocytes/100 WBC (Bld) 0.3 % Normal [facility] Comment on above: Order Comment: Speci men Type: BLOOD SPECIMEN Ordering Facility: [facility] Address: [address] [place] [address] Performed By: #### 5 7021-8 #### [facility] CLIA [id number] [address] [place] [address] 54592 Lymphocytes (Bld) [#/Vol] 3.15 10*3/uL Normal 1.00-4.00 [facility] Comment on above: Order Comment: Speci men Type: BLOOD SPECIMEN Ordering Facility: [facility] Address: [address] [address] Performed By: #### 5 7021-8 #### [facility] CLIA [id number] [address] [place] [address] 46587 Lymphocytes/100 WBC (Bld) 34.7 % Normal [facility] Comment on above: Order Comment: Speci men Type: BLOOD SPECIMEN Ordering Facility: [facility] Address: [address] [address] Performed By: #### 5 7021-8 #### [facility] CLIA [id number] [address] [place] [address] 91837 MCH (RBC) [Entitic mass] 29.2 pg Normal 26.0-34.0 [facility] Comment on above: Order Comment: Speci men Type: BLOOD SPECIMEN Ordering Facility: [facility] Address: [address] [address] Performed By: #### 5 7021-8 #### [facility] CLIA [id number] [address] [place] [address] 48986 MCHC (RBC) [Mass/Vol] 33.6 g/dL Normal 30.5-36.0 [facility] Comment on above: Order Comment: Speci men Type: BLOOD SPECIMEN Ordering Facility: [facility] Address: [address] [address] Performed By: #### 5 7021-8 #### [facility] CLIA [id number] [address] [place] [address] 20027 MCV (RBC) [Entitic vol] 86.8 fL Normal 80.0-100.0 [facility] Comment on above: Order Comment: Speci men Type: BLOOD SPECIMEN Ordering Facility: [facility] Address: [address] [place] [address] Performed By: #### 5 7021-8 #### [facility] CLIA [id number] [address] [place] [address] 26288 Monocytes (Bld) [#/Vol] 0.48 10*3/uL Normal <0.87 [facility] Comment on above: Order Comment: Speci men Type: BLOOD SPECIMEN Ordering Facility: [facility] Address: [address] [address] Performed By: #### 5 7021-8 #### [facility] CLIA [id number] [address] [place] [address] 86721 Monocytes/100 WBC (Bld) 5.3 % Normal [facility] Comment on above: Order Comment: Speci men Type: BLOOD SPECIMEN Ordering Facility: [facility] Address: [address] [address] Performed By: #### 5 7021-8 #### [facility] CLIA [id number] [address] [place] [address] 54109 Neutrophils (Bld) [#/Vol] 5.14 10*3/uL Normal 1.45-7.50 [facility] Comment on above: Order Comment: Speci men Type: BLOOD SPECIMEN Ordering Facility: [facility] Address: [address] [address] Performed By: #### 5 7021-8 #### [facility] CLIA [id number] [address] [place] [address] 91733 Neutrophils/100 WBC (Bld) 56.7 % Normal [facility] Comment on above: Order Comment: Speci men Type: BLOOD SPECIMEN Ordering Facility: [facility] Address: [address] Performed By: #### 5 7021-8 #### [facility] CLIA [id number] [address] [place] [address] 02314 Nucleated RBC (Bld) [#/Vol] 10*3/uL Normal <0.01 [facility] Comment on above: Order Comment: Speci men Type: BLOOD SPECIMEN Ordering Facility: [facility] Address: [address] Performed By: #### 5 7021-8 #### [facility] CLIA [id number] [address] [place] [address] Nucleated RBC/100 WBC (Bld) [Ratio] 0.0 /100 WBC Normal [facility] Comment on above: Order Comment: Speci men Type: BLOOD SPECIMEN Ordering Facility: [facility] Address: [address] [place] [address] Performed By: #### 5 7021-8 #### [facility] CLIA [id number] [address] [place] [address] 78538 Platelet mean volume (Bld) [Entitic vol] 9.4 fL Normal 9.0-12.7 [facility] Comment on above: Order Comment: Speci men Type: BLOOD SPECIMEN Ordering Facility: [facility] Address: [address] [place] [address] Performed By: #### 5 7021-8 #### [facility] CLIA [id number] [address] [place] [address] 92292 Platelets (Bld) [#/Vol] 320 10*3/uL Normal 150-400 [facility] Comment on above: Order Comment: Speci men Type: BLOOD SPECIMEN Ordering Facility: [facility] Address: [address] [place] [address] Performed By: #### 5 7021-8 #### [facility] CLIA [id number] [address] [place] [address] 90708 RBC (Bld) [#/Vol] 5.00 10*6/uL Normal 3.90-5.20 [facility] Comment on above: Order Comment: Speci men Type: BLOOD SPECIMEN Ordering Facility: [facility] Address: [address] [place] [address] Performed By: #### 5 7021-8 #### [facility] CLIA [id number] [address] [place] [address] 72517 WBC (Bld) [#/Vol] 9.07 10*3/uL Normal 3.70-11.00 [facility] Comment on above: Order Comment: Speci men Type: BLOOD SPECIMEN Ordering Facility: [facility] Address: [address] [address] Performed By: #### 5 7021-8 #### [facility] CLIA [id number] [address] [place] [address] 79739 Comprehensive metabolic 2000 panelon 03-14-2022 Albumin [Mass/Vol] 4.1 g/dL Normal 3.9-4.9 [facility] Comment on above: Order Comment: Speci men Type: BLOOD SPECIMEN Ordering Facility: [facility] Address: [address] [address] Performed By: #### 2 4323-8 #### [facility] CLIA [id number] [address] [place] [address] 99077 ALP [Catalytic activity/Vol] 107 U/L Normal 34-123 [facility] Comment on above: Order Comment: Speci men Type: BLOOD SPECIMEN Ordering Facility: [facility] Address: [address] [address] Performed By: #### 2 4323-8 #### [facility] CLIA [id number] [address] [place] [address] 42151 ALT [Catalytic activity/Vol] 32 U/L Normal 7-38 [facility] Comment on above: Order Comment: Speci men Type: BLOOD SPECIMEN Ordering Facility: [facility] Address: [address] [address] Performed By: #### 2 4323-8 #### [facility] CLIA [id number] [address] [place] [address] 51813 Anion gap [Moles/Vol] 10 mmol/L Normal 9-18 [facility] Comment on above: Order Comment: Speci men Type: BLOOD SPECIMEN Ordering Facility: [facility] Address: [address] [address] Performed By: #### 2 4323-8 #### [facility] CLIA [id number] [address] [place] [address] 34721 AST [Catalytic activity/Vol] 28 U/L Normal 13-35 [facility] Comment on above: Order Comment: Speci men Type: BLOOD SPECIMEN Ordering Facility: [facility] Address: [address] [address] Performed By: #### 2 4323-8 #### [facility] CLIA [id number] [address] [place] [address] 11318 Bilirubin [Mass/Vol] mg/dL Low 0.2-1.3 [facility] Comment on above: Order Comment: Speci men Type: BLOOD SPECIMEN Ordering Facility: [facility] Address: [address] [address] Performed By: #### 2 4323-8 #### [facility] CLIA [id number] [address] [place] [address] 03019 Calcium [Mass/Vol] 9.3 mg/dL Normal 8.5-10.2 [facility] Comment on above: Order Comment: Speci men Type: BLOOD SPECIMEN Ordering Facility: [facility] Address: [address] [address] Performed By: #### 2 4323-8 #### [facility] CLIA [id number] [address] [place] [address] 02244 Chloride [Moles/Vol] 104 mmol/L Normal 97-105 [facility] Comment on above: Order Comment: Speci men Type: BLOOD SPECIMEN Ordering Facility: [facility] Address: [address] [address] Performed By: #### 2 4323-8 #### [facility] CLIA [id number] [address] [place] [address] 76789 CO2 [Moles/Vol] 27 mmol/L Normal 22-30 [facility] Comment on above: Order Comment: Speci men Type: BLOOD SPECIMEN Ordering Facility: [facility] Address: [address] [address] Performed By: #### 2 4323-8 #### [facility] CLIA [id number] [address] [place] [address] Creatinine [Mass/Vol] 0.93 mg/dL Normal 0.58-0.96 [facility] Comment on above: Order Comment: Sanjana schultz Type: BLOOD SPECIMEN Ordering Facility: [facility] Address: [address] [place] [address] Performed By: #### 2 4323-8 #### [facility] CLIA [id number] [address] [place] [address] 13904 ESTIMATED GLOMERULAR FILTRATION RATE 74 mL/min/1.73m??? Normal >=60 [facility] Comment on above: Order Comment: Sanjana schultz Type: BLOOD SPECIMEN Ordering Facility: [facility] Address: [address] [place] [address] Result Comment: Yeimy mated Glomerular Filtration Rate [...] GFR. Performed By: #### 2 4323-8 #### [facility] CLIA [id number] [address] [place] [address] 70846 Glucose [Mass/Vol] 118 mg/dL High 74-99 [facility] Comment on above: Order Comment: Sanjana schultz Type: BLOOD SPECIMEN Ordering Facility: [facility] Address: [address] [place] [address] Result Comment: The [place] [employer] (ADA) provides guidance for cutoff [...] Standards of Medical Care in Diabetes 2016, [place] [employer]. Diabetes Care. 2016.39(Suppl 1). Performed By: #### 2 4323-8 #### [facility] CLIA [id number] [address] [place] [address] Potassium [Moles/Vol] 3.7 mmol/L Normal 3.7-5.1 [facility] Comment on above: Order Comment: Speci men Type: BLOOD SPECIMEN Ordering Facility: [facility] Address: [address] [address] Performed By: #### 2 4323-8 #### [facility] CLIA [id number] [address] [place] [address] 09977 Protein [Mass/Vol] 6.8 g/dL Normal 6.3-8.0 [facility] Comment on above: Order Comment: Speci men Type: BLOOD SPECIMEN Ordering Facility: [facility] Address: [address] [address] Performed By: #### 2 4323-8 #### [facility] CLIA [id number] [address] [place] [address] 11362 Sodium [Moles/Vol] 141 mmol/L Normal 136-144 [facility] Comment on above: Order Comment: Speci men Type: BLOOD SPECIMEN Ordering Facility: [facility] Address: [address] [address] Performed By: #### 2 4323-8 #### [facility] CLIA [id number] [address] [place] [address] 77545 Urea nitrogen [Mass/Vol] 17 mg/dL Normal 7-21 [facility] Comment on above: Order Comment: Speci men Type: BLOOD SPECIMEN Ordering Facility: [facility] Address: [address] [address] Performed By: #### 2 4323-8 #### [facility] CLIA [id number] [address] [place] [address] Ferritin SerPl-mCncon 2021 Ferritin [Mass/Vol] 27.4 ng/mL Normal 14.7-205.1 [facility] Comment on above: Order Comment: Speci men Type: BLOOD SPECIMEN Ordering Facility: [facility] Address: [address] [place] [address] Performed By: #### 2 276-4 #### [facility] CLIA [id number] [address] [place] [address] [place] [employer] and Iron binding capaci ty panelon 03-14-2022 Iron [Mass/Vol] 56 ug/dL Normal 41-186 [facility] Comment on above: Order Comment: Speci men Type: BLOOD SPECIMEN Ordering Facility: [facility] Address: [address] [place] [address] Performed By: #### 5 0190-8 #### [facility] CLIA [id number] [address] [place] [address] [place] Iron binding capacity [Mass/Vol] 298 ug/dL Normal 232-386 [facility] Comment on above: Order Comment: Speci men Type: BLOOD SPECIMEN Ordering Facility: [facility] Address: [address] [place] [address] Performed By: #### 5 0190-8 #### [facility] CLIA [id number] [address] [place] [address] [place] Iron/TIBC [Molar ratio] 18.8 % Normal 15.0-57.0 [facility] Comment on above: Order Comment: Speci men Type: BLOOD SPECIMEN Ordering Facility: [facility] Address: [address] [place] [address] Performed By: #### 5 0190-8 #### [facility] CLIA [id number] [address] [place] [address] [place] CBC AUTO DIFFon 02-23-2022 BASO # 0.1 103/ul Normal 0.0-0.1 [facility] Comment on above: Performed By: #### C BC #### [facility] [address] [place] [address] Dr. Sarah Philippe Basophils/100 WBC (Bld) 0.6 % Normal 0.2-2.0 [facility] Comment on above: Performed By: #### C BC #### [facility] [address] [place] [address] Dr. Sarah Philippe EO # 0.2 103/ul Normal 0.0-0.7 [facility] Comment on above: Performed By: #### C BC #### [facility] [address] [place] [address] Dr. Sarah Philippe Eosinophils/100 WBC (Bld) 1.8 % Normal 0.9-7.0 [facility] Comment on above: Performed By: #### C BC #### [facility] [address] [place] [address] Dr. Sarah Philippe Erythrocyte distribution width (RBC) [Ratio] 13.9 % Normal 11.0-15.0 [facility] Comment on above: Performed By: #### C BC #### [facility] [address] [place] [address] Dr. Sarah Philippe Hematocrit (Bld) [Volume fraction] 45.3 % Normal 36.0-48.0 [facility] Comment on above: Performed By: #### C BC #### [facility] [address] [place] [address] Dr. Sarah Philippe Hemoglobin (Bld) [Mass/Vol] 14.8 g/dL Normal 12.0-16.0 [facility] Comment on above: Performed By: #### C BC #### [facility] [address] [place] [address] Dr. Sarah Philippe IG # 0.02 10e3/ul Normal 0.00-0.03 [facility] Comment on above: Performed By: #### C BC #### [facility] [address] [place] [address] Dr. Sarah Philippe IG % 0.2 % Normal 0.0-0.5 [facility] Comment on above: Performed By: #### C BC #### [facility] [address] [place] [address] Dr. Sarah Philippe LYMPH # 3.0 103/ul Normal 1.2-3.8 [facility] Comment on above: Performed By: #### C BC #### [facility] [address] [place] [address] Dr. Sarah Philippe Lymphocytes/100 WBC (Bld) 35.3 % Normal 20.5-60.0 [facility] Comment on above: Performed By: #### C BC #### [facility] [address] [place] [address] Dr. Sarah Philippe MANUAL DIFF REQ NO Normal [facility] Comment on above: Performed By: #### C BC #### [facility] [address] [place] [address] Dr. Sarah Philippe MCH (RBC) [Entitic mass] 27.5 pg Normal 26.7-34.0 [facility] Comment on above: Performed By: #### C BC #### [facility] [address] [place] [address] Dr. Sarah Philippe MCHC (RBC) [Mass/Vol] 32.7 g/dL Normal 29.9-35.2 [facility] Comment on above: Performed By: #### C BC #### [facility] [address] [place] [address] Dr. Sarah Philippe MCV (RBC) [Entitic vol] 84.0 fL Normal 81.0-99.0 [facility] Comment on above: Performed By: #### C BC #### [facility] [address] [place] [address] Dr. Sarah Philippe MONO # 0.5 103/ul Normal 0.3-0.8 [facility] Comment on above: Performed By: #### C BC #### [facility] [address] [place] [address] Dr. Sarah Philippe Monocytes/100 WBC (Bld) 6.3 % Normal 1.7-12.0 [facility] Comment on above: Performed By: #### C BC #### [facility] [address] [address] [address] Sarah Philippe NEUT # 4.7 103/ul Normal 1.4-6.5 [facility] Comment on above: Performed By: #### C BC #### [facility] [address] [address] [address] Sarah Philippe Neutrophils/100 WBC (Bld) 55.8 % Normal 43.0-75.0 [facility] Comment on above: Performed By: #### C BC #### [facility] [address] [place] [address] Dr. Sarah Philippe Platelet mean volume (Bld) [Entitic vol] 9.3 fL Critically low 9.5-13.5 [facility] Comment on above: Performed By: #### C BC #### [facility] [address] [place] [address] Dr. Sarah Philippe PLT 323 103/ul Normal 150-450 [facility] Comment on above: Performed By: #### C BC #### [facility] [address] [place] [address] Dr. Sarah Philippe RBC 5.39 106/ul Normal 4.20-5.40 [facility] Comment on above: Performed By: #### C BC #### [facility] [address] [place] [address] Dr. Sarah Philippe WBC 8.4 103/ul Normal 4.0-11.0 [facility] Comment on above: Performed By: #### C BC #### [facility] [address] [place] [address] Dr. Sarah Philippe LIPID PROFILEon 02-23-2022 CHOL-HDL RATIO NORM SEE BELOW Normal [facility] Comment on above: Result Comment: 3.3 - 4.4 LOW RISK 4.4 - 7.1 AVERAGE RISK 7.1 - 11.0 MODERATE RISK >11.0 HIGH RISK Performed By: #### C MP, TSH, T4, LIPID #### [facility] [address] [place] [address] Dr. Sarah Philippe Cholesterol [Mass/Vol] 287 mg/dL Critically high <=200 [facility] Comment on above: Performed By: #### C MP, TSH, T4, LIPID #### [facility] [address] [address] [address] Sarah Philippe Cholesterol in HDL [Mass/Vol] 40 mg/dL Normal 40-60 [facility] Comment on above: Performed By: #### C MP, TSH, T4, LIPID #### [facility] [address] [address] [address] Sarah Philippe Cholesterol in LDL [Mass/Vol] 183.4 mg/dL Normal [facility] Comment on above: Performed By: #### C MP, TSH, T4, LIPID #### [facility] [address] [address] [address] Sarah Philippe Cholesterol.total/Cho lesterol in HDL [Mass ratio] 7.2 {ratio} Normal [facility] Comment on above: Performed By: #### C MP, TSH, T4, LIPID #### [facility] [address] [address] [address] Sarah Philippe HDL NORMAL > or = 60 mg/dl - LOW CARDIOVASCULAR RISK <40 mg/dl - HIGH CARDIOVASCULAR RISK Normal [facility] Comment on above: Performed By: #### C MP, TSH, T4, LIPID #### [facility] [address] [address] [address] Sarah Philippe LDL CALC NORMAL SEE BELOW Normal [facility] Comment on above: Result Comment: <100 mg/dl OPTIMAL 100 - 129 mg/dl NEAR OR ABOVE OPTIMAL 130 - 159 mg/dl BORDERLINE HIGH 160 - 189 mg/dl HIGH >190 mg/dl VERY HIGH Performed By: #### C MP, TSH, T4, LIPID #### [facility] [address] [address] [address] Sarah Philippe Triglyceride [Mass/Vol] 318 mg/dL Critically high <=150 [facility] Comment on above: Performed By: #### C MP, TSH, T4, LIPID #### [facility] [address] [address] [address] Sarah Philippe VLDL CALC 63.6 mg/dL Normal [facility] Comment on above: Performed By: #### C MP, TSH, T4, LIPID #### [facility] [address] [address] [address] Sarah Philippe PROF 14(COMP METB)on 022 Albumin [Mass/Vol] 3.6 g/dL Normal 3.4-5.0 [facility] Comment on above: Performed By: #### C MP, TSH, T4, LIPID #### [facility] [address] [place] [address] Dr. Sarah Philippe Albumin/Globulin [Mass ratio] 0.9 {ratio} Normal [facility] Comment on above: Performed By: #### C MP, TSH, T4, LIPID #### [facility] [address] [place] [address] Dr. Sarah Philippe ALP [Catalytic activity/Vol] 102 U/L Normal 46-116 [facility] Comment on above: Performed By: #### C MP, TSH, T4, LIPID #### [facility] [address] [place] [address] Dr. Sarah Philippe ALT [Catalytic activity/Vol] 36 U/L Normal 14-59 [facility] Comment on above: Performed By: #### C MP, TSH, T4, LIPID #### [facility] [address] [place] [address] Dr. Sarah Philippe Anion gap [Moles/Vol] 10.6 mmol/L Normal [facility] Comment on above: Performed By: #### C MP, TSH, T4, LIPID #### [facility] [address] [place] [address] Dr. Sarah Philippe AST [Catalytic activity/Vol] 21 U/L Normal 15-37 [facility] Comment on above: Performed By: #### C MP, TSH, T4, LIPID #### [facility] [address] [place] [address] Dr. Sarah Philippe Bilirubin [Mass/Vol] 0.3 mg/dL Normal 0.2-1.0 [facility] Comment on above: Performed By: #### C MP, TSH, T4, LIPID #### [facility] [address] [address] [address] Sarah Philippe Calcium [Mass/Vol] 9.2 mg/dL Normal 8.5-10.1 [facility] Comment on above: Performed By: #### C MP, TSH, T4, LIPID #### [facility] [address] [address] [address] Sarah Philippe Chloride [Moles/Vol] 98 mmol/L Normal 98-107 [facility] Comment on above: Performed By: #### C MP, TSH, T4, LIPID #### [facility] [address] [address] [address] Sarah Philippe CO2 [Moles/Vol] 27.8 mmol/L Normal 21.0-32.0 [facility] Comment on above: Performed By: #### C MP, TSH, T4, LIPID #### [facility] [address] [place] [address] Dr. Sarah Philippe Creatinine [Mass/Vol] 1.00 mg/dL Normal 0.55-1.02 [facility] Comment on above: Performed By: #### C MP, TSH, T4, LIPID #### [facility] [address] [address] [address] Sarah Philippe EGFR-AF SURINAMESE >60 Normal >=60 [facility] Comment on above: Performed By: #### C MP, TSH, T4, LIPID #### [facility] [address] [address] [address] Sarah Philippe EGFR-NON AF SURINAMESE 58 mL/min/1.73m2 Critically low >=60 [facility] Comment on above: Performed By: #### C MP, TSH, T4, LIPID #### [facility] [address] [address] [address] Sarah Philippe Globulin (S) [Mass/Vol] 4.1 g/dL Normal [facility] Comment on above: Performed By: #### C MP, TSH, T4, LIPID #### [facility] [address] [address] [address] Sarah Philippe Glucose [Mass/Vol] 108 mg/dL Critically high 74-106 T [facility] Comment on above: Performed By: #### C MP, TSH, T4, LIPID #### [facility] [address] [place] [address] Dr. Sarah Philippe Potassium [Moles/Vol] 3.4 mmol/L Critically low 3.5-5.1 [facility] Comment on above: Performed By: #### C MP, TSH, T4, LIPID #### [facility] [address] [place] [address] Dr. Sarah Philippe Protein [Mass/Vol] 7.7 g/dL Normal 6.4-8.2 [facility] Comment on above: Performed By: #### C MP, TSH, T4, LIPID #### [facility] [address] [place] [address] Dr. Sarah Philippe Sodium [Moles/Vol] 133 mmol/L Critically low 136-145 [facility] Comment on above: Performed By: #### C MP, TSH, T4, LIPID #### [facility] [address] [place] [address] Dr. Sarah Philippe Urea nitrogen [Mass/Vol] 15.0 mg/dL Normal 7.0-18.0 [facility] Comment on above: Performed By: #### C MP, TSH, T4, LIPID #### [facility] [address] [place] [address] Dr. Sarah Philippe Urea nitrogen/Creatinine [Mass ratio] 15.0 mg/mg Normal [facility] Comment on above: Performed By: #### C MP, TSH, T4, LIPID #### [facility] [address] [place] [address] Dr. Sarah Philippe T4on 02-23-2022 T4 [Mass/Vol] 8.40 ug/dL Normal 4.80-13.90 [facility] Comment on above: Performed By: #### C MP, TSH, T4, LIPID #### [facility] [address] [place] [address] Dr. Sarah Philippe TSHon 02-23-2022 TSH 1.815 uIU/mL Normal 0.358-3.740 [facility] Comment on above: Performed By: #### C MP, TSH, T4, LIPID #### [facility] [address] [place], [place] [address] Dr. Sarah Philippe Covid-19 PCR (CVDTB)on 08-06 SARS-CoV-2 (COVID-19) RNA DARÍO+probe Ql (Unsp spec) Detected Critically abnormal NOT DETECTED [facility] Comment on above: Result Comment: This test is not yet approved or cleared by the [place] FDA. When there are no FDA-approved or cleared tests available, and other criteria are met, FDA can make tests available under an emergency access mechanism called an Emergency Use Authorization (EUA). The EUA for this test is supported by the [employer] of Health and Human Service's (HHS's) declaration [...] used). Performed By: #### C VDTBH #### [facility] [address] [id number] Sarah Philippe Basophils Auto (Bld) [#/Vol] Ordered By: Chris Borden on 07-20-2021 Basophils (Bld) [#/Vol] 0.1 10*3/uL 0.0-0.2 [facility] Basophils/100 WBC Auto (Bld) Ordered By: Chris Borden on 07-20-2021 Basophils/100 WBC (Bld) 0.6 % [facility] Blood hemoglobin measurement (mass/volume)Ordered By: Chris Borden on 07-20-2021 Hemoglobin (Bld) [Mass/Vol] 14.9 g/dL 11.8-15.4 [facility] Blood leukocytes automated c ount (number/volume)Ordered By: Chris Borden on 07-20-2021 WBC (Bld) [#/Vol] 9.6 10*3/uL 4.5-11.0 [facility] COVID-19 Positive/NegativeOr dered By: Chris Borden on 07-20-2021 SARS-CoV-2 (COVID-19) N gene DARÍO+probe Ql (Resp) Negative Negative [facility] Comment on above: Testing for SARS-CoV -2 by RT-PCR This test was developed and its performance characteristics determined by [employer] ([employer]) and validated at the [facility]. This test has not been FDA cleared [...] on 07-20-2021 Creatinine [Mass/Vol] 0.97 mg/dL 0.44-1.03 [facility] Eosinophils Auto (Bld) [#/Vo l]Ordered By: Chris Borden on 07-20-2021 Eosinophils (Bld) [#/Vol] 0.2 10*3/uL 0.0-0.45 [facility] Eosinophils/100 WBC Auto (Bl d)Ordered By: Chris Borden on 07-20-2021 Eosinophils/100 WBC (Bld) 2.0 % [facility] Erythrocyte distribution wid th Auto (RBC) [Ratio]Ordered By: Chris Borden on 07-20-2021 Erythrocyte distribution width (RBC) [Ratio] 14.1 % 11.9-15.3 [facility] Estimated glomerular filtrat ion rate (GFR) non- AmericanOrdered By: Chris Borden on 07-20-2021 GFR/1.73 sq M.predicted among non-blacks MDRD (S/P/Bld) [Vol rate/Area] 60 mL/Min [facility] Hematocrit Auto (Bld) [Volum e fraction]Ordered By: Chris Borden on 07-20-2021 Hematocrit (Bld) [Volume fraction] 44.0 % 34.0-46.4 [facility] Laboratory - Hematology and Cell countsOrdered By: Chris Borden on 07-20-2021 Nucleated RBC/100 WBC (Bld) [Ratio] 0.3 % 0-0.5 [facility] Lymphocytes Auto (Bld) [#/Vo l]Ordered By: Chris Borden on 07-20-2021 Lymphocytes (Bld) [#/Vol] 3.3 10*3/uL 1.00-4.8 [facility] Lymphocytes/100 WBC Auto (Bl d)Ordered By: Chris Borden on 07-20-2021 Lymphocytes/100 WBC (Bld) 34.3 % [facility] MCH Auto (RBC) [Entitic mass ]Ordered By: Chris Borden on 07-20-2021 MCH (RBC) [Entitic mass] 28.9 pg 24.7-34.3 [facility] MCHC Auto (RBC) [Mass/Vol]Or dered By: Chris Borden on 07-20-2021 MCHC (RBC) [Mass/Vol] 33.8 g/dL 32.0-35.0 [facility] MCV Auto (RBC) [Entitic vol] Ordered By: Chris Borden on 07-20-2021 MCV (RBC) [Entitic vol] 85.6 fL 80-100 [facility] Monocytes Auto (Bld) [#/Vol] Ordered By: Chris Borden on 07-20-2021 Monocytes (Bld) [#/Vol] 0.4 10*3/uL 0.0-0.8 [facility] Monocytes/100 WBC Auto (Bld) Ordered By: Chris Borden on 07-20-2021 Monocytes/100 WBC (Bld) 4.7 % [facility] Neutrophils Auto (Bld) [#/Vo l]Ordered By: Chris Borden on 07-20-2021 Neutrophils (Bld) [#/Vol] 5.6 10*3/uL 1.8-7.7 [facility] Neutrophils/100 WBC Auto (Bl d)Ordered By: Chris Borden on 07-20-2021 Neutrophils/100 WBC (Bld) 58.4 % [facility] No Panel InformationOrdered By: Chris Borden on 07-20-2021 Estimated GFR () > 60 mL/Min [facility] Comment on above: GFR estimated refere nce range: According to KDOQI guidelines, <60 ml/min/1.73m2 is sufficient to diagnose a patient with chronic kidney disease. Pharmacy Creatinine Clearance (Chem N/A [facility] Platelet mean volume Auto (B ld) [Entitic vol]Ordered By: Chris Borden on 07-20-2021 Platelet mean volume (Bld) [Entitic vol] 7.7 fL 6.3-10.7 [facility] Platelets Auto (Bld) [#/Vol] Ordered By: Chris Borden on 07-20-2021 Platelets (Bld) [#/Vol] 365 10*3/uL 150-450 [facility] RBC Auto (Bld) [#/Vol]Ordere d By: Chris Borden on 07-20-2021 RBC (Bld) [#/Vol] 5.14 10*6/uL 3.60-5.00 [facility] Serum or plasma calcium georgie urement (mass/volume)Ordered By: Chris Borden on 07-20-2021 Calcium [Mass/Vol] 9.2 mg/dL 8.2-10.2 [facility] Serum or plasma chloride carolina surement (moles/volume)Ordered By: Chris Borden on 07-20-2021 Chloride [Moles/Vol] 95 mmol/L 95-114 [facility] Serum or plasma glucose georgie urement (mass/volume)Ordered By: Chris Borden on 07-20-2021 Glucose [Mass/Vol] 99 mg/dL 70-100 [facility] Comment on above: ADA recommended refe rence range Random Glucose Reference Range is dependent on time and content of last meal. Glucose of more than 200 mg/dL in a nonstressed, ambulatory subject supports the diagnosis of Diabetes Mellitus. Serum or plasma potassium me asurement (moles/volume)Ordered By: Chris Borden on 07-20-2021 Potassium [Moles/Vol] 3.5 mmol/L 3.5-5.1 [facility] Serum or plasma sodium measu rement (moles/volume)Ordered By: Chris Borden on 07-20-2021 Sodium [Moles/Vol] 134 mmol/L 136-146 [facility] Serum or plasma total carbon dioxide measurement (moles/volume)Ordered By: Chris Borden on 07-20-2021 CO2 [Moles/Vol] 25.9 mmol/L 22.0-30.0 [facility] Serum or plasma urea nitroge n measurement (mass/volume)Ordered By: Chris Borden on 07-20-2021 Urea nitrogen [Mass/Vol] 14 mg/dL 9-23 [facility] Coding Summary.on 03-17-2020 Coding Summary. CODING DATE: 03/17/2020 FINAL [facility] STATUS: Home (Routine DC) PAYOR: [...] CphT Date Saved: 03/17/2020 04:51 pm Normal [facility] SARS-CoV-2, NAAon 03-12-2020 SARS-CoV-2 (COVID-19) RNA DARÍO+probe Ql (Resp) Not detected Invalid Interpretation Code Not Detected [facility] Comment on above: Result Comment: This nucleic acid amplification test was developed and its performance characteristics determined by [employer]. Nucleic acid amplification tests include PCR and [...] this assay. Performed at: [facility] [address] [facility], [place] [id number] [facility] Abbe Velasquez Performed By: #### S ARS-CoV-2, DARÍO #### [facility] [address] [place] [address] Physician Orderon 03-09-2020 Physician Order [id number] #1.00CD:127 Normal [facility] Coding Summary.on 11-20-2019 Coding Summary. CODING DATE: 11/20/2019 [facility] STATUS: Home (Routine DC) PAYOR: Commercial Insurance ADMIT DX: REASON FOR VISIT DX: Z01.818 Encounter for other preprocedural examination FINAL DX: PRINCIPAL: Z01.818 Encounter for other preprocedural examination SECONDARY: Z20.828 Contact with and (suspected) exposure to other viral communicable diseases [facility] DES[facility] DOCTOR NAME DATE NOTE: The code number assigned matches the documented diagnosis and / or procedure in the patient's chart. However, the narrative phrase printed from the coding software may appear abbreviated, or result in slightly different terminology. Coded By: Britney Pabon Date Saved: 11/20/2019 07:41 am Normal [facility] SARS-CoV-2, NAAon 11-05-2019 SARS-CoV-2 (COVID-19) RNA DARÍO+probe Ql (Resp) Not detected Invalid Interpretation Code Not Detected [facility] Comment on above: Result Comment: This test was developed and its performance characteristics determined by [employer]. This test has not been FDA cleared [...] detected) result in this assay. Performed at: [facility] [address] [facility] [place] [id number] MD Arvind Zuniga Performed By: #### S ARS-CoV-2, DARÍO #### [facility] [address] [place] [address] Physician Orderon 10-30-2019 Physician Order [id number]# 1.00CD:127 Normal [facility] Vital Signs Date Time Vital Sign Value Performing Clinician Facility 05-06-2023 11:00-0500 Body height 166.37 cm Luisa Corriganemily [facility] Other 05-06-2023 11:00-0500 Body mass index (BMI) [Ratio] 43.11 kg/m2 Luisa Corriganemily Other [facility] Other 05-06-2023 11:00-0500 Body weight 119.34 kg Luisaher Corrgianemily Other [facility] Other 05-06-2023 11:00-0500 Diastolic blood pressure 85 mm[Hg] Luisa Fabian Other [facility] Other 05-06-2023 11:00-0500 Respiratory rate 18 /min Luisa Fabian Other [facility] Other 05-06-2023 11:00-0500 SaO2% (BldA) [Mass fraction] 96 % Luisa Fabian Other [facility] Other 05-06-2023 11:00-0500 Systolic blood pressure 119 mm[Hg] Luisa Corriganler Other [facility] Other 04-29-2023 10:00-0500 Body height 166.37 cm Sylvia Chavez Other [facility] Other 04-29-2023 10:00-0500 Body mass index (BMI) [Ratio] 43.26 kg/m2 Sylvia Chavez Other [facility] Other 04-29-2023 10:00-0500 Body weight 119.75 kg Sylvia Chavez Other [facility] Other 04-29-2023 10:00-0500 Diastolic blood pressure 86 mm[Hg] Sylvia Chavez Other [facility] Other 04-29-2023 10:00-0500 SaO2% (BldA) [Mass fraction] 97 % Sylvia Chavez Other [facility] Other 04-29-2023 10:00-0500 Systolic blood pressure 122 mm[Hg] Sylvia Chavez Other [facility] Other 03-11-2023 10:00-0500 Body height 166.37 cm Luisa Missler Other [facility] Other 03-11-2023 10:00-0500 Body mass index (BMI) [Ratio] 44.5 kg/m2 Luisa Missler Other [facility] Other 03-11-2023 10:00-0500 Body weight 123.2 kg Luisa Missler Other [facility] Other 03-11-2023 10:00-0500 Diastolic blood pressure 90 mm[Hg] Luisa Missler Other [facility] Other 03-11-2023 10:00-0500 Respiratory rate 18 /min Luisa Missler Other [facility] Other 03-11-2023 10:00-0500 SaO2% (BldA) [Mass fraction] 94 % Luisa Missler Other [facility] Other 03-11-2023 10:00-0500 Systolic blood pressure 114 mm[Hg] Luisa Missler Other [facility] Other 02-27-2023 08:00-0500 Body height 167.64 cm Sylvia Chavez Other [facility] Other 02-27-2023 08:00-0500 Body mass index (BMI) [Ratio] 44.16 kg/m2 Sylvia Chavez Other [facility] Other 02-27-2023 08:00-0500 Body weight 124.1 kg Sylvia Kathy Other [facility] Other 02-27-2023 08:00-0500 Diastolic blood pressure 86 mm[Hg] Sylvia Kathy Other [facility] Other 02-27-2023 08:00-0500 Respiratory rate 18 /min Sylvia Kathy Other [facility] Other 02-27-2023 08:00-0500 SaO2% (BldA) [Mass fraction] 97 % Sylvia Kathy Other [facility] Other 02-27-2023 08:00-0500 Systolic blood pressure 124 mm[Hg] Sylvia Kathy Other [facility] Other 10-11-2022 11:22-0400 Body temperature 98.01 [degF] Chair Ellen Work Phone: [facility] 10-11-2022 11:22-0400 Diastolic blood pressure 76 mm[Hg] Chair Colver Work Phone: [facility] 10-11-2022 11:22-0400 Heart rate 78 /min Chair Ellen Work Phone: [facility] 10-11-2022 11:22-0400 Respiratory rate 16 /min Chair Ellen Work Phone: [facility] 10-11-2022 11:22-0400 SaO2% (BldA) [Mass fraction] 96 % Chair Colver Work Phone: [facility] 10-11-2022 11:22-0400 Systolic blood pressure 109 mm[Hg] Chair Ellen Work Phone: [facility] 07-20-2021 15:02-0400 Body height 167.64 cm DO Maury House Work Phone: [facility] 07-20-2021 15:02-0400 Body mass index (BMI) [Ratio] 42.2 kg/m2 DO Maury House Work Phone: [facility] 07-20-2021 15:02-0400 Body temperature 98.4 [degF] DO Maury House Work Phone: [facility] 07-20-2021 15:02-0400 Body weight 118.7 kg DO Maury House Work Phone: [facility] 07-20-2021 15:02-0400 Diastolic blood pressure 90 mm[Hg] DO Maury House Work Phone: [facility] 07-20-2021 15:02-0400 Heart rate 97 /min DO Maury House Work Phone: [facility] 07-20-2021 15:02-0400 Respiratory rate 18 /min DO Maury House Work Phone: [facility] 07-20-2021 15:02-0400 SaO2% (BldA) [Mass fraction] 95 % DO Maury House Work Phone: [facility] 07-20-2021 15:02-0400 Systolic blood pressure 131 mm[Hg] DO Maury House Work Phone: [facility] Encounters Encounter Date Encounter Type Care Provider Facility Start: 05-16-2023 End: 05-16-2023 ambulatory Luisa Fabian Other [facility] Other Start: 05-16-2023 [facility] Start: 05-06-2023 ([id number]) Weight Management f/u [facility] Start: 05-06-2023 End: 05-06-2023 ambulatory Sylvia Chavez Facility:[facility] Start: 04-29-2023 End: 04-29-2023 ambulatory Sylvia Kathy Other [facility] Other Start: 04-29-2023 Office outpatient visit 25 minutes Sylvia Chavez [facility] Start: 03-11-2023 End: 03-11-2023 ambulatory Luisa Fabian Other [facility] Other Start: 03-11-2023 Encounter by [employer] Sylvia Chavez [facility] Start: 03-11-2023 Nutrition therapy Luisa Fabian [facility] Start: 03-11-2023 Telephone encounter Luisa Fabian [facility] Start: 03-07-2023 End: 03-07-2023 ambulatory Sylvia Chavez Other [facility] Other Start: 03-07-2023 Encounter by [employer] Sylvia Chavez [facility] Start: 03-07-2023 Telephone encounter Sylvia Cliff islas [facility] Start: 03-04-2023 End: 03-04-2023 ambulatory Zoila Grant Other [facility] Other Start: 03-04-2023 Telephone encounter Zoila Grant [facility] Start: 02-27-2023 End: 02-27-2023 ambulatory Sylvia Chavez Other [facility] Other Start: 02-27-2023 Office outpatient ne w 30 minutes Sylvia Chavez [facility] Start: 02-26-2023 ambulatory Dani Julian acility:[facility] Start: 02-14-2023 ambulatory Yosef Zhang MD Work Phone: Hematology/Oncology Comment on above: Tests Start: 10-11-2022 End: 10-11-2022 ambulatory Chair Rachael Hughes Work Phone: Hematology/Oncology Comment on above: Iron deficiency anem ia due to chronic blood loss (Primary Dx) Start: 10-04-2022 End: 10-04-2022 ambulatory FATOU DUTTON Facility:[facility] Start: 10-04-2022 End: 10-04-2022 ambulatory Chair John Hughes Work Phone: Hematology/Oncology Comment on above: Iron deficiency anem ia due to chronic blood loss (Primary Dx) Start: 09-27-2022 End: 09-28-2022 ambulatory FATOU DUTTON Facility:[facility] Start: 09-24-2022 Social Work Cash SALGADOW Hematolo gy/Oncology Start: 09-17-2022 End: 09-17-2022 ambulatory MAURY WALLACE SR Facility:[facility] Start: 09-11-2022 ambulatory Yosef Zhang MD Work Phone: Hematology/Oncology Comment on above: Question regarding C BC + DIFF Start: 09-10-2022 End: 09-10-2022 ambulatory YOSEF ZHANG Facility:[facility] Start: 09-06-2022 ambulatory Yosef Zhang MD Work Phone: Hematology/Oncology Comment on above: Lab Start: 07-27-2022 End: 07-28-[address] MAURY WALLACE Facility:[facility] Start: 03-14-2022 End: 03-14-2022 ambulatory FATOU DUTTON Facility:[facility] Start: 02-23-2022 End: 02-24-[address] MAURY WALLACE Facility:[facility] Start: 08-24-2021 End: 08-24-[address] MAURY WALLACE Facility:[facility] Start: 07-24-2021 End: 07-24-2021 Departed Referred DO Maury Wallace Work Phone: [facility] [place] Start: 07-20-2021 End: 07-20-2021 Patient encounter procedure DO Maury Wallace Work Phone: [facility] Start: 06-16-2021 Telephone encounter Marquise [...] Author Start: 09-27-2025 DIABETES SCREEN DIABETES SCREEN [facility] Start: 09-27-2025 Diabetes Screening Diabetes Screenin g [facility] Start: 09-06-2025 Lipid 1996 panel - S tam or Plasma Lipid Screening [facility] Start: 09-06-2025 LIPID SCREEN LIPID SCREEN [facility] Start: 03-14-2025 DIABETES SCREEN DIABETES SCREEN [facility] Start: 01-18-2024 DIABETES SCREEN DIABETES SCREEN [facility] Start: 02-14-2023 End: 05-16-2023 CBC W Auto Differential panel - Blood CBC + DIFF Lab Routine Iron deficiency anemia due to chronic blood loss Malaise and fatigue Expected: 02/14/2023, Expires: 05/16/2023 [facility] Work Phone: Comment on above: Expected: 02/14/2023 , Expires: 05/16/2023 Start: 02-14-2023 End: 05-16-2023 Cobalamin (Vitamin B12) [Mass/volume] in Serum or Plasma VITAMIN B12 BLOOD Lab Routine Iron deficiency anemia due to chronic blood loss Malaise and fatigue Expected: 02/14/2023, Expires: 05/16/2023 [facility] Work Phone: Comment on above: Expected: 02/14/2023 , Expires: 05/16/2023 Start: 02-14-2023 End: 05-16-2023 Comprehensive metabolic 2000 panel - Serum or Plasma COMP METABOLIC PANEL Lab Routine Iron deficiency anemia due to chronic blood loss Malaise and fatigue Expected: 02/14/2023, Expires: 05/16/2023 [facility] Work Phone: Comment on above: Expected: 02/14/2023 , Expires: 05/16/2023 Start: 02-14-2023 End: 05-16-2023 Ferritin [Mass/volume] in Serum or Plasma FERRITIN BLD Lab Routine Iron deficiency anemia due to chronic blood loss Malaise and fatigue Expected: 02/14/2023, Expires: 05/16/2023 [facility] Work Phone: Comment on above: Expected: 02/14/2023 , Expires: 05/16/2023 Start: 02-14-2023 End: 05-16-2023 Folate [Mass/volume] in Serum or Plasma FOLATE SERUM Lab Routine Iron deficiency anemia due to chronic blood loss Malaise and fatigue Expected: 02/14/2023, Expires: 05/16/2023 [facility] Work Phone: Comment on above: Expected: 02/14/2023 , Expires: 05/16/2023 Start: 02-14-2023 End: 05-16-2023 Iron and Iron binding capacity panel - Serum or Plasma IRON + TIBC Lab Routine Iron deficiency anemia due to chronic blood loss Malaise and fatigue Expected: 02/14/2023, Expires: 05/16/2023 [facility] Work Phone: Comment on above: Expected: 02/14/2023 , Expires: 05/16/2023 Start: 02-14-2023 End: 05-16-2023 Thyrotropin [Units/volume] in Serum or Plasma TSH BLD Lab Routine Iron deficiency anemia due to chronic blood loss Malaise and fatigue Expected: 02/14/2023, Expires: 05/16/2023 [facility] Work Phone: Comment on above: Expected: 02/14/2023 , Expires: 05/16/2023 Start: 12-07-2022 Colonoscopy COLONOSCOPY [facility] Start: 12-07-2022 COLORECTAL CANCER SCREENING COLORECTAL CANCER SCREENING [facility] Start: 12-07-2022 Covid-19 Vaccine () Covid-19 Vaccine () [facility] Start: 12-07-2022 Influenza vaccination [facility] Start: 09-12-2022 End: 11-12-2022 Comprehensive metabolic 2000 panel - Serum or Plasma COMP METABOLIC PANEL Lab Routine Iron deficiency anemia due to chronic blood loss Expected: 09/12/2022, Expires: 11/12/2022 [facility] Work Phone: Comment on above: Expected: 09/12/2022 , Expires: 11/12/2022 Start: 09-07-2022 End: 11-07-2022 CBC W Auto Differential panel - Blood CBC + DIFF Lab Routine Iron deficiency anemia due to chronic blood loss Expected: 09/07/2022, Expires: 11/07/2022 [facility] Work Phone: Comment on above: Expected: 09/07/2022 , Expires: 11/07/2022 Start: 09-07-2022 End: 09-08-2023 Ferritin [Mass/volume] in Serum or Plasma FERRITIN BLD Lab Routine Iron deficiency anemia due to chronic blood loss Expected: 09/07/2022, Expires: 09/08/2023 [facility] Work Phone: Comment on above: Expected: 09/07/2022 , Expires: 09/08/2023 Start: 09-07-2022 End: 09-08-2023 Iron and Iron binding capacity panel - Serum or Plasma IRON + TIBC Lab Routine Iron deficiency anemia due to chronic blood loss Expected: 09/07/2022, Expires: 09/08/2023 [facility] Work Phone: Comment on above: Expected: 09/07/2022 , Expires: 09/08/2023 Start: 09-07-2022 End: 11-07-2022 RETIC COUNT RETIC COUNT Lab Routine Iron deficiency anemia due to chronic blood loss Expected: 09/07/2022, Expires: 11/07/2022 [facility] Work Phone: Comment on above: Expected: 09/07/2022 , Expires: 11/07/2022 Start: 04-08-2022 DEPRESSION ASSESSMENT DEPRESSION ASS ESSMENT [facility] Start: 01-17-2022 Adult depression screening assessment DEPRESSION SCREENING [facility] Start: 12-07-2021 Influenza vaccination INFLUENZ A (Season Ended) [facility] Start: 09-01-2021 FECAL OCCULT BLOOD FECAL OCCULT BLOO D [facility] Start: 07-24-2021 OR Wound Debridement/I&D/Hydraden itis (Not Applicable) OR Wound Debridement/I&D/Hydrade nitis (Not Applicable) [facility] Start: 01-15-2021 COVID-19 VACCINE (3 - Booster for Pfizer series) COVID-19 VACCINE (3 - Booster for Pfizer series) [facility] Start: 12-07-2020 Influenza vaccination INFLUENZ A (Season Ended) [facility] Start: 10-10-2020 COVID-19 VACCINE (3 - Booster for Pfizer series) COVID-19 VACCINE (3 - Booster for Pfizer series) [facility] Start: 06-14-2019 Screening for malign ant neoplasm of colon [facility] Start: 06-14-2019 SHINGRIX VACCINE (1 of 2) SHINGRIX VACCINE (1 of 2) [facility] Start: 2014 COLOGUARD (FIT-DNA) COLOGUARD (FIT-D NA) [facility] Start: [address] COLONOGRAPHY [facility] Start: 2014 DIABETES SCREEN DIABETES SCREEN [facility] Start: 2014 LIPID SCREEN LIPID SCREEN [facility] Start: 2014 SIGMOIDOSCOPY SIGMOIDOSCOPY [facility] Start: 2009 Mammography [facility] Start: 06-14-1999 HPV TESTING HPV TESTING [facility] Start: 1990 PAP TESTING PAP TESTING [facility] Start: 1988 Urine microalbumin profile [facility] Start: 06-14-1987 HEPATITIS C SCREENING HEPATITIS C SC REENING [facility] Start: 06-14-1987 HIV SCREENING HIV SCREENING [facility] Start: 1981 Adult depression screening assessment DEPRESSION SCREENING [facility] Start: 06-14-1975 PNEUMOCOCCAL (1 - PCV) PNEUMOCOCCAL (1 - PCV) [facility] Start: 06-14-1975 Pneumococcal vaccination Pneum ococcal Vaccine (1 - PCV) [facility] Start: 1969 HEPATITIS B (1 of 3 - 3-dose series) HEPATITIS B (1 of 3 - 3-dose series) [facility] Start: 1969 Hepatitis B Vaccine (1 of 3 - 3-dose series) Hepatitis B Vaccine (1 of 3 - 3-dose series) [facility] Immunizations Immunization Date Immunization Notes Care Provider Fa balaji 08-15-2020 COVID-19 vaccine, ag e 12+ yr (PFIZER-BIONTECH - PURPLE TOP) Marquise Freire DO Work Phone: [facility] 07-18-2020 COVID-19 vaccine, ag e 12+ yr (PFIZER-BIONTECH - PURPLE TOP) Marquise Freire DO Work Phone: [facility] Payers Date Payer Category Payer Self-pay [id number] 2017 Private Health Insurance [id number] 2014 Private Health Insurance [id number] 1969 Unknown [id number] 1969 Unknown [id number] 1969 Unknown [id number] [id number] 1969 Unknown [id number] 1959 Private Health Insurance [facility] [id number] Private Health Insurance [facility] [id number] Unknown [id number] [id number] Unknown [id number] [id number] Social History Date Type Detail Facility Start: 08-26-2020 Tobacco smoking stat [facility] Unknown if ever smoked [facility] Start: 1970 Sex Assigned At Not on file [facility] Start: 06-09-2021 End: 06-19-2021 Exposure to SARS-CoV-2 (event) Not sure [facility] Start: 08-31-2020 End: 09-01-2020 Tobacco smoking status NHIS Smokes tobacco daily [facility] History of tobacco use Cigarette Smoker C [facility] Start: 08-31-2020 End: 09-17-2022 Cigarettes smoked current (pack per day) - Reported 1 [facility] Start: 08-31-2020 End: 09-01-2020 Tobacco use and exposure Smokeless tobacco non-user [facility] Start: 01-17-2021 Alcohol intake Lifetime non-d jaya (finding) [facility] Start: 09-01-2020 History SDOH Alcohol Frequency 1 [facility] Start: 1970 Sex Assigned At Female C [facility] Start: 07-20-2021 [facility] Start: 01-17-2021 End: 09-17-2022 Tobacco use panel [facility] Adult Depression Screening Assessment 0 [facility] Start: 09-01-2020 Gender identity Identifies as female gender (finding) [facility] Start: 09-01-2020 Sexual orientation Heterosexual (fin ding) [facility] Clinical Notes 07-05-2021 to 05-16-2023 Note [...] I10) May, Mixed hyperlipidemia (ICD-10 - E78.2) [facility] Other 01-29-2024 Evaluation note* Encounter Date Diagnosis [...] of June.Exercise counseling-she is establishing with our adhesive bandage machine operator this week discussed in detail exercise interventions [...] Encounter for weight management (ICD-10 - Z76.89) [facility] Other 01-22-2024 Evaluation note* Encounter Date Diagnosis [...] obesity (BMI >= 40) (ICD-10 - E66.01) [facility] Other 12-04-2023 Evaluation note* Encounter Date Diagnosis [...] Consider [employer] if approved by her spouses [facility] insurance although not 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 I agree with the [...] She is open to establishing with our adhesive bandage machine operator for guidance on physical activity at a [...] We will perform surveillance t/o our visits. [place] sleep score 19 Mar, Abnormal kidney function [...] thyroidectomy. She denies any history of cancer. [facility] Other 12-04-2023 Evaluation note* Encounter Date Diagnosis Assessment Notes Treatment Notes Treatment Clinical Notes Mar, Other Nga sent in error, called to [facility] to cancel script. [facility] Other 11-30-2023 Evaluation note* Encounter Date Diagnosis Assessment Notes Treatment Notes Treatment Clinical Notes Feb, Nonalcoholic fatty liver disease (ICD-10 - K76.0) [facility] Other 11-30-2023 Evaluation note* Encounter Date Diagnosis Assessment Notes Treatment Notes Treatment Clinical Notes Feb, Mixed hyperlipidemia (ICD-10 - E78.2) Feb, Stage 3a chronic kidney disease (ICD-10 - N18.31) [facility] Other 11-22-2023 Evaluation note* Encounter Date Diagnosis [...] [BMI ] 40.0-44.9, adult (ICD-10 - Z68.41) [facility] Other 11-09-2023 Miscellaneous Notes* Telephone Encounter - Sylvia Amador RN - 02/14/2023 3:01 PM EST Called and spoke to patient about the changed appointment. She verbalized understanding and states that date and time will work. No further questions. Sylvia Amador RN * Telephone Encounter - Sylvia Amador RN - 02/14/2023 8:46 AM EST PSS: I have called and sent a [employer] message to this patient. Can we schedule an appointment with labs and notify patient. Thanks. Sylvia Amador RN * Telephone Encounter - Fatou Dutton PA-C - 02/14/2023 8:32 AM EST Please call and schedule patient for a follow up and labs. She has not been seen since 2020 and should have a follow up. Fatou Dutton PA-C documented in this encounterPark[facility] NoteHNO ID: [id number] Author: YASIR Gonzales Service: ? Author Type: Plant Operator Type: Progress Notes Filed: 09/24/2022 4:17 PM Note Text: Patient appears on the [facility] First Time Treatment List for a non-oncology treatment. No psychosocial assessment is indicated. ROLDAN [facility]06-19-2023 History of Present illness Narrative* YASIR Gonzales - 09/24/2022 4:16 PM EDT Patient appears on the [facility] First Time Treatment List for a non-oncology treatment. No psychosocial assessment is indicated. SUNNY Gonzales documented in this encounterPark[facility]06-12-2023 NoteHNO ID: [id number] Author: Wendy Segura RN Service: ? Author Type: Registered Nurse Type: Progress Notes Filed: 09/17/2022 11:35 AM Note Text: CMP drawn X2 with finishing lab technician reporting that sample was hemolyzed. 2nd reporting was after pt was discharged. CMP reordered to be drawn when pt returns next week for additional iron.[facility]06-08-2023 Miscellaneous Notes* Telephone Encounter - Cherri Dickson [...] placed Fatou Dutton PA-C documented in this encounterPark[facility]03-30-2022 Miscellaneous Notes* Telephone Encounter - Tiarra Zambrano LPN - 07/05/2021 1:15 PM EDT VM left for patient to call our office and also to check message in [employer]. Please see message noted below by Dr. [...] 2021 This note was partially generated using [employer] voice recognition system, and there may be [...] anything else (dizziness, nausea, vomiting, palpitations, sweating)? [place] 10/28/[address] Freire * Telephone Encounter - Shanna Gifford - 06/16/2021 2:05 PM EST Patient sent a [employer] message: having heart issues on 06/16/2021. I [...] Please advise, thank you. documented in this encounterParkview Health [facility] HospitalEvalunemours foundation noteNo assessment information availableBarberton Citizens Hospital Work Phone: Evaluation note* Diagnosis Iron deficiency anemia due to chronic blood loss- Primary Iron deficiency anemia secondary to blood loss (chronic) documented in this encounter [facility]* Diagnosis Iron deficiency anemia due to chronic blood loss- Primary Iron deficiency anemia secondary to blood loss (chronic) documented in this encounter [facility] HospitalEvalunem[facility] foundation note* Diagnosis Iron deficiency anemia due to chronic blood loss- Primary Iron deficiency anemia secondary to blood loss (chronic) documented in this encounter [facility] note* Diagnosis Iron deficiency anemia due to chronic blood loss- Primary Iron deficiency anemia secondary to blood loss (chronic) documented in this encounter [facility] note* Diagnosis Iron deficiency anemia due to chronic blood loss- Primary Iron deficiency anemia secondary to blood loss (chronic) Malaise and fatigue Other malaise and fatigue documented in this encounter [facility] noteNo InformationNortBarnes-[facility] myaNUMBER Other History general Narrative - Reported* Type [...] biopsy 10/2022 Hospitalization History See surgical hx [facility] myaNUMBER Other Hiswioa general Narrative - Reported* Type Description Date [...] Surgical History Endometrial biopsy 10/2022 Surgical History [place]se[place] teeth extraction Surgical History Full teeth extraction Hospitalization History See surgical hx [facility] Other History general Narrative - Reported* Type [...] Surgical History Endometrial biopsy 10/2022 Surgical History [place] teeth extraction Surgical History Full teeth extraction Hospitalization History [facility] anxiety and heart palpitations 04/23/23 Hospitalization History See above [facility] Other Reason for visit NarrativeReferral Sylvia Chavez [facility] Other Summary Purpose Family History Relationship Condition [...] or prosecute any alcohol or drug abuse patient.[facility] HospitalIn the event this information is protected by the Federal Confidentiality of Alcohol and Drug Abuse Patient Records regulations: The Federal rules restrict any use of the information to criminally investigate or prosecute any alcohol or drug abuse patient.[facility] HospitalIn the event this information is protected by the Federal Confidentiality of Alcohol and Drug Abuse Patient Records regulations: The Federal rules restrict any use of the information to criminally investigate or prosecute any alcohol or drug abuse patient.[facility] HospitalIn the event this information is protected by the Federal Confidentiality of Alcohol and Drug Abuse Patient Records regulations: The Federal rules restrict any use of the information to criminally investigate or prosecute any alcohol or drug abuse patient.[facility] HospitalIn the event this information is protected by the Federal Confidentiality of Alcohol and Drug Abuse Patient Records regulations: The Federal rules restrict any use of the information to criminally investigate or prosecute any alcohol or drug abuse patient.[facility] HospitalIn the event this information is protected by the Federal Confidentiality of Alcohol and Drug Abuse Patient Records regulations: The Federal rules restrict any use of the information to criminally investigate or prosecute any alcohol or drug abuse patient.[facility] HospitalIn the event this information is protected by the Federal Confidentiality of Alcohol and Drug Abuse Patient Records regulations: The Federal rules restrict any use of the information to criminally investigate or prosecute any alcohol or drug abuse patient.[facility] HospitalIn the event this information is protected by the Federal Confidentiality of Alcohol and Drug Abuse Patient Records regulations: The Federal rules restrict any use of the information to criminally investigate or prosecute any alcohol or drug abuse patient.[facility] INFORMATION SOURCE (unrecogn ized section and content) DATE CREATED AUTHOR 10/04/2020 [facility] DATE CREATED AUTHOR AUTHOR'S ORGANIZ ATION 07/31/2022 [facility] DATE CREATED AUTHOR AUTHOR'S ORGANIZ ATION 10/12/2022 [facility] DATE CREATED AUTHOR AUTHOR'S ORGANIZ ATION 05/06/2023 [facility] Reason for Visit (unrecogniz ed section and content) HM Compounded semaglutide Reason Comments Appointment Specialty Diagnoses / Procedures Referred By Contac t Referred To Contact Diagnoses Iron deficiency anemia due to chronic blood loss Procedures IRON SUCROSE INJECTION PER 1 MG Fatou Dutton PA-C [address] [place] [address] [facility] [address] [place] [address] Referral ID Status Reason Start Date Expiration Date V isits Requested Visits Authorized [id number] Authorized 09/12/2022 04/07/2023 1 99 Care Teams (unrecognized sec tion and content) Licensed Clinical Social Worker Relationship Specialty Start Date End Date Maury Wallace Sr. PCP - General Family Practice 02/16/15 Team Status: Inactive Member Role Status Dates Maury Wallace , Primary Care Provider Active Chris Borden DO Attending Provider Active Team Status: Active Member Role Status Dates Maury Wallace , Primary Care Provider Active Licensed Clinical Social Worker Relationship Specialty Start Date End Date Maury Wallace Sr. 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 PCP - [facility] Medicine 02/16/15 Licensed Clinical Social Worker Relationship Specialty Start Date End Date Maury Wallace Sr. 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 PCP - [facility] 02/16/15 Licensed Clinical Social Worker Relationship Specialty Start Date End Date Maury [...] BE BASED ON THE PRIMARY CLINICAL RECORDS. [facility] CenterCom[facility]. provides no warranty or guarantee of the accuracy or completeness of information in this document.
--- NOTE | 2023-05-30 08:00 | CA_ITS ---
[facility] Test Date: 2023-05-30 Pat Name: MARIA FERNANDA VALLECILLO Department: Room: - Gender: Female [employer]: : 1970 Requested By: Sylvia Chavez Order Number: [id number] Reading MD: SANDRA MYERS Interpretive Statements Biphasic doppler waveforms. PVR waveforms with normal upstroke, amplitude and dicrotic notch. Right: - no significant pressure gradient between cuffs - normal GLENDY Left: - no significant pressure gradient between cuffs - normal GLENDY Impression: - normal arterial evaluation of the lower extremities without hemodynamic impairment of the B/L lower extremities at rest. (right GLENDY 1.06, left GLENDY 1.03) Electronically Signed On 05-30-2023 22:24:14 EST by SANDRA MYERS
== END 2023-05-30 07:51 | disposition home or self-care (01) ==
PROVIDERS: Visit Provider Nurse Practitioner Family
DX: I73.9 Peripheral vascular disease, unspecified (principal)
CPT/HCPCS: 93923

== ENCOUNTER 2023-07-30 19:49 | Outpatient (OUT) | payer OTHER, SELFPAY ==
--- OUTSIDE RECORDS SUMMARY | 2023-07-30 20:01 | XMS_ITS | CCD ---
Author Organization [facility] Care Team Providers Care Lead Ruby On Rails Developer Name Role Phone House Sr., Maury Snell Primary Care Provider House, DO Mendiola Primary Care Provider DO Chris Borden Attending Provider HOUSE, DR MENDIOLA Admitting Unavailable HOUSE, DR [...] DR MENDIOLA Consulting Unavailable House Sr., Maury Snell Primary Care Provider [facility] WINSTON FATOU M Referring Unavailable VINICIO ZHANGRA Referring Unavailable HOUSE SR, MAURY CHANNING Primary Care Unavai lable WINSTON, FATOU M Referring Unavailable HOUSE SR, MAURY [facility] Unavai lable HOUSE SR, MAURY [facility] Care Unavai lable WINSTON, FATOU M Referring Unavailable WINSTON, FATOU M Referring Unavailable HOUSE SR, MAURY [facility] Care Unavai lable WINSTON, FATOU M Referring Unavailable HOUSE SR, MAURY [facility] Unavai lable HOUSE SR, MAURY [facility] Unavai lable House Sr., [facility] Sylvia Chavez Unavailable [phone] Zoila Grant Unavailable Luisa Fabian Unavailable Sylvia Chavez Primary Care Unavailable Sylvia Chavez Attending Unavailable Sylvia Chavez Admitting Unavailable Sylvia Chavez Primary Care Unavailable Dani Lord Admitting Unavailab le Dani Lord Attending Unavailab le Sylvia Chavez Admitting Unavailable Sylvia Chavez Primary Care Unavailable Sylvia Chavez Attending Unavailable Allergies Allergy Classification Reported Allergen(s) Allergy Type Date of Onset Reaction(s) Facility Opioid Agonists (1 source) Meperidine Drug Allergy 08-26-2020 Unknown [facility] (20 sources) Meperidine; Translations: [MEPERIDINE] Drug Allergy 08-26-2020 Unknown [facility] (13 sources) Clindamycin; Translations: [clindamycin] Drug Allergy 07-20-2021 Rash, Unknown [facility] (1 source) Meperidine Drug Allergy [facility] (1 source) Meperidine Drug Allergy 06-12-2023 [facility] Medications Current Medications Medication Drug Class(es) [...] sources) Peroxisome Proliferator Receptor alpha Agonist Start: take 1 tablet by mouth every twenty-four hours Fenofibrate 54 MG 1 tablet with food Orally Once a day for 90 days Mar, Active hydroCHLOROthiazide 25 mg / lisinopril 20 mg oral tablet (19 sources) Thiazide Diuretic, Angiotensin Converting Enzyme Inhibitor Start: take 1 tablet by mouth once daily [...] 1 tablet Orally Once a day (Femhrt 1/5) Not-Taking/PRN take 1 tablet by denise th every twenty-four hours Norethindrone-Eth Estradiol 1-5 MG-MCG 1 tablet Orally Once a day (Femhrt 15) Not-Taking omeprazole 20 mg delayed release oral capsule (15 sources) Proton Pump Inhibitor Start: 12-20-2020 take 1 capsule by mouth twice daily before mealtime omeprazole (PRILOSEC) 20 mg capsule Take 1 capsule by mouth twice daily before meals. 60 capsule 0 12/20/2020 Active take 1 capsule by mo [facility] every twenty-four hours Omeprazole 20 MG 1 capsule Orally Once a day for 90 days Active Comment on above: Take 1 capsule by mo ut twice daily before meals. Problems Active Problems [...] deficiencies (1 source) Iron deficiency Episodic Other aftercare (1 source) Encounter for other specified aftercare; Translations: [Encounter for other specified aftercare] Onset: 05-09-2023 Episodic Other diseases of kidney and ureters [...] 03-11-2023 HbA1c (Bld) [Mass fraction] 6.2 % docplanner Other HbA1c (Bld) [Mass fraction]o n 03-11-2023 A1C HEMOGLOBIN [facility] Other Comprehensive metabolic 2000 panelon 09-27-2022 Albumin [Mass/Vol] 4.5 g/dL Normal 3.9-4.9 [facility] Comment on above: Order Comment: Speci men Type: BLOOD SPECIMEN [facility] Address: [address] [address] Performed By: #### 2 4323-8 #### [facility] CLIA [id number] [address] [place] [address] 14440 ALP [Catalytic activity/Vol] 106 U/L Normal 34-123 [facility] Comment on above: Order Comment: Speci men Type: BLOOD SPECIMEN [facility] Address: [address] [id number] Performed By: #### 2 4323-8 #### [facility] CLIA [id number] [address] [place] [address] 32434 ALT [Catalytic activity/Vol] 25 U/L Normal 7-38 [facility] Comment on above: Order Comment: Speci men Type: BLOOD SPECIMEN [facility] Address: [address] [address] Performed By: #### 2 4323-8 #### [facility] CLIA [id number] [address] [place] [address] Anion gap [Moles/Vol] 9 mmol/L Normal 9-18 [facility] Comment on above: Order Comment: Speci men Type: BLOOD SPECIMEN [facility] Address: [address] [place] [address] Performed By: #### 2 4323-8 #### [facility] CLIA [id number] [address] [place] [address] 22833 AST [Catalytic activity/Vol] 19 U/L Normal 13-35 [facility] Comment on above: Order Comment: Speci men Type: BLOOD SPECIMEN [facility] Address: [address] [place] [address] Performed By: #### 2 4323-8 #### [facility] CLIA [id number] [address] [place] [address] 43377 Bilirubin [Mass/Vol] mg/dL Low 0.2-1.3 [facility] Comment on above: Order Comment: Speci men Type: BLOOD SPECIMEN [facility] Address: [address] [place] [address] Performed By: #### 2 4323-8 #### [facility] CLIA [id number] [address] [place] [address] 84618 Calcium [Mass/Vol] 9.8 mg/dL Normal 8.5-10.2 [facility] Comment on above: Order Comment: Speci men Type: BLOOD SPECIMEN [facility] Address: [address] [address] Performed By: #### 2 4323-8 #### [facility] CLIA [id number] [address] [place] [address] 47963 Chloride [Moles/Vol] 99 mmol/L Normal 97-105 [facility] Comment on above: Order Comment: Speci men Type: BLOOD SPECIMEN [facility] Address: [address] [address] Performed By: #### 2 4323-8 #### [facility] CLIA [id number] [address] [place] [address] CO2 [Moles/Vol] 28 mmol/L Normal 22-30 [facility] Comment on above: Order Comment: Speci men Type: BLOOD SPECIMEN [facility] Address: [address] [address] Performed By: #### 2 4323-8 #### [facility] CLIA [id number] [address] [place] [address] 05294 Creatinine [Mass/Vol] 1.09 mg/dL High 0.58-0.96 [facility] Comment on above: Order Comment: Speci men Type: BLOOD SPECIMEN [facility] Address: [address] [place] [address] Performed By: #### 2 4323-8 #### [facility] CLIA [id number] [address] [place] [address] 39877 ESTIMATED GLOMERULAR FILTRATION RATE 61 mL/min/1.73m??? Normal >=60 [facility] Comment on above: Order Comment: Speci men Type: BLOOD SPECIMEN [facility] Address: [address] [place] [address] Result Comment: Yeimy mated Glomerular Filtration Rate [...] GFR. Performed By: #### 2 4323-8 #### [facility] CLIA [id number] [address] [place] [address] 85867 Glucose [Mass/Vol] 128 mg/dL High 74-99 [facility] Comment on above: Order Comment: Speci men Type: BLOOD SPECIMEN [facility] Address: [address] [address] Result Comment: The [place] [employer] (ADA) provides guidance for cutoff [...] Standards of Medical Care in Diabetes 2016, [place] [employer]. Diabetes Care. 2016.39(Suppl 1). Performed By: #### 2 4323-8 #### [facility] CLIA [id number] [address] [place] [address] 46222 Potassium [Moles/Vol] 3.9 mmol/L Normal 3.7-5.1 [facility] Comment on above: Order Comment: Sanjana schultz Type: BLOOD SPECIMEN [facility] Address: [address] [address] Performed By: #### 2 4323-8 #### [facility] CLIA [id number] [address] [place] [address] 97262 Protein [Mass/Vol] 7.4 g/dL Normal 6.3-8.0 [facility] Comment on above: Order Comment: Sanjana schultz Type: BLOOD SPECIMEN [facility] Address: [address] [address] Performed By: #### 2 4323-8 #### [facility] CLIA [id number] [address] [place] [address] 13955 Sodium [Moles/Vol] 136 mmol/L Normal 136-144 [facility] Comment on above: Order Comment: Neldai men Type: BLOOD SPECIMEN [facility] Address: [address] Performed By: #### 2 4323-8 #### [facility] CLIA [id number] [address] [place] [address] 73299 Urea nitrogen [Mass/Vol] 20 mg/dL Normal 7-21 [facility] Comment on above: Order Comment: Speci men Type: BLOOD SPECIMEN [facility] Address: [place] [address] Performed By: #### 2 4323-8 #### [facility] CLIA [id number] [address] [place] [address] 70775 CNSWon 09-24-2022 CNSW Social Work (HEMASA) INES VALLECILLO ([id number]) 1970 F Date Time Provider Department 09/24/22 SHARON DOE During your visit today, we recorded the following information about you: YASIR Gonzales 09/24/2022 4:17 PM Signed Patient appears on the [facility] First Time Treatment List for a [...] to chronic blood los*08/31/2020 Encounter Status:Closed by SHARON DOE [facility] 09/24/22 [facility] CNPN Telephone (HEMASA) RUTH ANNINES ([id number]) 1970 F Date Time Provider Department 09/14/22 [...] Status:Closed by SUMMER NUGENT on 09/14/22 Normal [facility] CBC W Auto Differential pane l (Bld)on 09-10-2022 Basophils (Bld) [#/Vol] 0.04 10*3/uL Normal <0.11 [facility] Comment on above: Order Comment: Speci men Type: BLOOD SPECIMEN [facility] Address: [address] [place] [address] Performed By: #### 1 4196-0, 83091-9 #### [facility] CLIA [id number] [address] [place] [address] 17922 Basophils/100 WBC (Bld) 0.5 % Normal [facility] Comment on above: Order Comment: Speci men Type: BLOOD SPECIMEN [facility] Address: [address] [place] [address] Performed By: #### 1 4196-0, 86388-2 #### [facility] CLIA [id number] [address] [place] [address] 31208 Differential cell count method Nom (Bld) Auto Normal [facility] Comment on above: Order Comment: Speci men Type: BLOOD SPECIMEN [facility] Address: [address] [place] [address] Performed By: #### 1 4196-0, 64624-2 #### [facility] CLIA [id number] [address] [place] [address] 60839 Eosinophils (Bld) [#/Vol] 0.20 10*3/uL Normal <0.46 [facility] Comment on above: Order Comment: Speci men Type: BLOOD SPECIMEN [facility] Address: [address] [address] Performed By: #### 1 4196-0, 06346-4 #### [facility] CLIA [id number] [address] [place] [address] 10266 Eosinophils/100 WBC (Bld) 2.7 % Normal [facility] Comment on above: Order Comment: Speci men Type: BLOOD SPECIMEN [facility] Address: [address] [address] Performed By: #### 1 4196-0, 73346-2 #### [facility] CLIA [id number] [address] [place] [address] 51831 Erythrocyte distribution width (RBC) [Ratio] 14.6 % Normal 11.5-15.0 [facility] Comment on above: Order Comment: Speci men Type: BLOOD SPECIMEN [facility] Address: [address] [address] Performed By: #### 1 4196-0, 13669-3 #### [facility] CLIA [id number] [address] [place] [address] 54735 Hematocrit (Bld) [Volume fraction] 45.8 % Normal 36.0-46.0 [facility] Comment on above: Order Comment: Speci men Type: BLOOD SPECIMEN [facility] Address: [address] [address] Performed By: #### 1 4196-0, 14523-3 #### [facility] CLIA [id number] [address] [place] [address] 42129 Hemoglobin (Bld) [Mass/Vol] 15.2 g/dL Normal 11.5-15.5 [facility] Comment on above: Order Comment: Speci men Type: BLOOD SPECIMEN [facility] Address: [address] [address] Performed By: #### 1 4196-0, 61359-4 #### [facility] CLIA [id number] [address] [place] [address] 02482 Immature granulocytes (Bld) [#/Vol] 0.03 10*3/uL Normal <0.10 [facility] Comment on above: Order Comment: Speci men Type: BLOOD SPECIMEN [facility] Address: [address] [place] [address] Performed By: #### 1 4196-0, 39981-1 #### [facility] CLIA [id number] [address] [place] [address] 18877 Immature granulocytes/100 WBC (Bld) 0.4 % Normal [facility] Comment on above: Order Comment: Speci men Type: BLOOD SPECIMEN [facility] Address: [address] [place] [address] Performed By: #### 1 4196-0, 65799-1 #### [facility] CLIA [id number] [address] [place] [address] 83901 Lymphocytes (Bld) [#/Vol] 2.66 10*3/uL Normal 1.00-4.00 [facility] Comment on above: Order Comment: Speci men Type: BLOOD SPECIMEN [facility] Address: [address] [place] [address] Performed By: #### 1 4196-0, 22359-3 #### [facility] CLIA [id number] [address] [place] [address] 08381 Lymphocytes/100 WBC (Bld) 35.5 % Normal [facility] Comment on above: Order Comment: Speci men Type: BLOOD SPECIMEN [facility] Address: [address] [place] [address] Performed By: #### 1 4196-0, 46046-4 #### [facility] CLIA [id number] [address] [place] [address] 55929 MCH (RBC) [Entitic mass] 28.3 pg Normal 26.0-34.0 [facility] Comment on above: Order Comment: Speci men Type: BLOOD SPECIMEN [facility] Address: [address] [address] Performed By: #### 1 4196-0, 24270-2 #### [facility] CLIA [id number] [address] [place] [address] 57429 MCHC (RBC) [Mass/Vol] 33.2 g/dL Normal 30.5-36.0 [facility] Comment on above: Order Comment: Speci men Type: BLOOD SPECIMEN [facility] Address: [address] [address] Performed By: #### 1 4196-0, 72326-9 #### [facility] CLIA [id number] [address] [place] [address] 28253 MCV (RBC) [Entitic vol] 85.3 fL Normal 80.0-100.0 [facility] Comment on above: Order Comment: Speci men Type: BLOOD SPECIMEN [facility] Address: [address] [address] Performed By: #### 1 4196-0, 98054-5 #### [facility] CLIA [id number] [address] [place] [address] 58409 Monocytes (Bld) [#/Vol] 0.40 10*3/uL Normal <0.87 [facility] Comment on above: Order Comment: Speci men Type: BLOOD SPECIMEN [facility] Address: [address] [address] Performed By: #### 1 4196-0, 98172-9 #### [facility] CLIA [id number] [address] [place] [address] 80421 Monocytes/100 WBC (Bld) 5.3 % Normal [facility] Comment on above: Order Comment: Speci men Type: BLOOD SPECIMEN [facility] Address: [address] [address] Performed By: #### 1 4196-0, 95808-0 #### [facility] CLIA [id number] [address] [place] [address] 84887 Neutrophils (Bld) [#/Vol] 4.17 10*3/uL Normal 1.45-7.50 [facility] Comment on above: Order Comment: Speci men Type: BLOOD SPECIMEN [facility] Address: [address] [place] [address] Performed By: #### 1 4196-0, 94882-9 #### [facility] CLIA [id number] [address] [place] [address] 61579 Neutrophils/100 WBC (Bld) 55.6 % Normal [facility] Comment on above: Order Comment: Speci men Type: BLOOD SPECIMEN [facility] Address: [address] [place] [address] Performed By: #### 1 4196-0, 50768-9 #### [facility] CLIA [id number] [address] [place] [address] 04246 Nucleated RBC (Bld) [#/Vol] 10*3/uL Normal <0.01 [facility] Comment on above: Order Comment: Speci men Type: BLOOD SPECIMEN [facility] Address: [address] [place] [address] Performed By: #### 1 4196-0, 88183-8 #### [facility] CLIA [id number] [address] [place] [address] 10081 Nucleated RBC/100 WBC (Bld) [Ratio] 0.0 /100 WBC Normal [facility] Comment on above: Order Comment: Speci men Type: BLOOD SPECIMEN [facility] Address: [address] [place] [address] Performed By: #### 1 4196-0, 19580-6 #### [facility] CLIA [id number] [address] [place] [address] 31684 Platelet mean volume (Bld) [Entitic vol] 9.1 fL Normal 9.0-12.7 [facility] Comment on above: Order Comment: Speci men Type: BLOOD SPECIMEN [facility] Address: [address] [place] [address] Performed By: #### 1 4196-0, 25561-2 #### [facility] CLIA [id number] [address] [place] [address] 00135 Platelets (Bld) [#/Vol] 293 10*3/uL Normal 150-400 [facility] Comment on above: Order Comment: Speci men Type: BLOOD SPECIMEN [facility] Address: [address] [place] [address] Performed By: #### 1 4196-0, 94832-6 #### [facility] CLIA [id number] [address] [place] [address] 35872 RBC (Bld) [#/Vol] 5.37 10*6/uL High 3.90-5.20 [facility] Comment on above: Order Comment: Speci men Type: BLOOD SPECIMEN [facility] Address: [address] [place] [address] Performed By: #### 1 4196-0, 26557-2 #### [facility] CLIA [id number] [address] [place] [address] 69003 WBC (Bld) [#/Vol] 7.50 10*3/uL Normal 3.70-11.00 [facility] Comment on above: Order Comment: Speci men Type: BLOOD SPECIMEN [facility] Address: [address] [place] [address] Performed By: #### 1 4196-0, 54153-3 #### [facility] CLIA [id number] [address] [place] [address] 68315 [facility] Ferritin [Mass/Vol] 30.8 ng/mL Normal 14.7-205.1 [facility] Comment on above: Order Comment: Speci men Type: BLOOD SPECIMEN [facility] Address: [address] [address] Performed By: #### 5 0190-8, 2275- #### [facility] CLIA [id number] [address] [place] [address] [place] [employer] binding capaci ty panelon 09-10-2022 Iron [Mass/Vol] 40 ug/dL Low 41-186 [facility] Comment on above: Order Comment: Speci men Type: BLOOD SPECIMEN [facility] Address: [address] [address] Performed By: #### 5 0190-8, 2275-07 #### [facility] CLIA [id number] [address] [place] [address] [place] Iron binding capacity [Mass/Vol] 328 ug/dL Normal 232-386 [facility] Comment on above: Order Comment: Speci men Type: BLOOD SPECIMEN [facility] Address: [address] [address] Performed By: #### 5 0190-8, 2275-07 #### [facility] CLIA [id number] [address] [place] [address] [place] Iron/TIBC [Molar ratio] 12.2 % Low 15.0-57.0 [facility] Comment on above: Order Comment: Speci men Type: BLOOD SPECIMEN [facility] Address: [address] Performed By: #### 5 0190-8, 2275-07 #### [facility] CLIA [id number] [address] [place] [address] [place] Retics #on 09-10-2022 Reticulocytes (Bld) [#/Vol] 0.83168 10*3/uL High 0.018-0.100 [facility] Comment on above: Order Comment: Speci men Type: BLOOD SPECIMEN [facility] Address: [place] [address] Performed By: #### 1 4196-0, 06018-7 #### [facility] CLIA [id number] [address] [place] [address] Reticulocytes (Bld) [#/Vol]o n 09-10-2022 Reticulocytes/100 RBC (Bld) 2.2 % High 0.4-2.0 [facility] Comment on above: Order Comment: Speci men Type: BLOOD SPECIMEN [facility] Address: [address] [place] [address] Performed By: #### 1 4196-0, 25343-4 #### [facility] CLIA [id number] [address] [place] [address] FSHon 07-28-2022 FSH 25.2 mIU/mL Normal [facility] Comment on above: Result Comment: Adul t Female: Follicular phase 3.5 - 12.5 Ovulation phase 4.7 - 21.5 Luteal phase 1.7 - 7.7 Postmenopausal 25.8 - 134.8 Performed By: #### L [facility] #### [facility] [address] [place] [address] Dr. Sarah Philippe XR CHEST 2 Von [...] by: ABNER BERNABE Date: 2022-07-27 10:29 Normal [facility] CBC W Auto Differential pane l (Bld)on 03-14-2022 Basophils (Bld) [#/Vol] 0.05 10*3/uL Normal <0.11 [facility] Comment on above: Order Comment: Speci men Type: BLOOD SPECIMEN [facility] Address: [address] [address] Performed By: #### 5 7021-8 #### [facility] CLIA [id number] [address] [place] [address] 96826 Basophils/100 WBC (Bld) 0.6 % Normal [facility] Comment on above: Order Comment: Speci men Type: BLOOD SPECIMEN [facility] Address: [address] [address] Performed By: #### 5 7021-8 #### [facility] CLIA [id number] [address] [place] [address] 43768 Differential cell count method Nom (Bld) Auto Normal [facility] Comment on above: Order Comment: Speci men Type: BLOOD SPECIMEN [facility] Address: [address] [address] Performed By: #### 5 7021-8 #### [facility] CLIA [id number] [address] [place] [address] 69961 Eosinophils (Bld) [#/Vol] 0.22 10*3/uL Normal <0.46 [facility] Comment on above: Order Comment: Speci men Type: BLOOD SPECIMEN [facility] Address: [address] [address] Performed By: #### 5 7021-8 #### [facility] CLIA [id number] [address] [place] [address] 99461 Eosinophils/100 WBC (Bld) 2.4 % Normal [facility] Comment on above: Order Comment: Speci men Type: BLOOD SPECIMEN [facility] Address: [address] [address] Performed By: #### 5 7021-8 #### [facility] CLIA [id number] [address] [place] [address] 50045 Erythrocyte distribution width (RBC) [Ratio] 14.0 % Normal 11.5-15.0 [facility] Comment on above: Order Comment: Speci men Type: BLOOD SPECIMEN [facility] Address: [address] [address] Performed By: #### 5 7021-8 #### [facility] CLIA [id number] [address] [place] [address] 60296 Hematocrit (Bld) [Volume fraction] 43.4 % Normal 36.0-46.0 [facility] Comment on above: Order Comment: Speci men Type: BLOOD SPECIMEN [facility] Address: [address] [address] Performed By: #### 5 7021-8 #### [facility] CLIA [id number] [address] [place] [address] 02450 Hemoglobin (Bld) [Mass/Vol] 14.6 g/dL Normal 11.5-15.5 [facility] Comment on above: Order Comment: Speci men Type: BLOOD SPECIMEN [facility] Address: [address] [address] Performed By: #### 5 7021-8 #### [facility] CLIA [id number] [address] [place] [address] 45778 Immature granulocytes (Bld) [#/Vol] 0.03 10*3/uL Normal <0.10 [facility] Comment on above: Order Comment: Speci men Type: BLOOD SPECIMEN [facility] Address: [address] [address] Performed By: #### 5 7021-8 #### [facility] CLIA [id number] [address] [place] [address] 54124 Immature granulocytes/100 WBC (Bld) 0.3 % Normal [facility] Comment on above: Order Comment: Speci men Type: BLOOD SPECIMEN [facility] Address: [address] [address] Performed By: #### 5 7021-8 #### [facility] CLIA [id number] [address] [place] [address] 46830 Lymphocytes (Bld) [#/Vol] 3.15 10*3/uL Normal 1.00-4.00 [facility] Comment on above: Order Comment: Speci men Type: BLOOD SPECIMEN [facility] Address: [address] [address] Performed By: #### 5 7021-8 #### [facility] CLIA [id number] [address] [place] [address] 21647 Lymphocytes/100 WBC (Bld) 34.7 % Normal [facility] Comment on above: Order Comment: Speci men Type: BLOOD SPECIMEN [facility] Address: [address] [address] Performed By: #### 5 7021-8 #### [facility] CLIA [id number] [address] [place] [address] 45635 MCH (RBC) [Entitic mass] 29.2 pg Normal 26.0-34.0 [facility] Comment on above: Order Comment: Speci men Type: BLOOD SPECIMEN [facility] Address: [address] [address] Performed By: #### 5 7021-8 #### [facility] CLIA [id number] [address] [place] [address] 35492 MCHC (RBC) [Mass/Vol] 33.6 g/dL Normal 30.5-36.0 [facility] Comment on above: Order Comment: Speci men Type: BLOOD SPECIMEN [facility] Address: [address] [address] Performed By: #### 5 7021-8 #### [facility] CLIA [id number] [address] [place] [address] 57741 MCV (RBC) [Entitic vol] 86.8 fL Normal 80.0-100.0 [facility] Comment on above: Order Comment: Speci men Type: BLOOD SPECIMEN [facility] Address: [address] [address] Performed By: #### 5 7021-8 #### [facility] CLIA [id number] [address] [place] [address] Monocytes (Bld) [#/Vol] 0.48 10*3/uL Normal <0.87 [facility] Comment on above: Order Comment: Speci men Type: BLOOD SPECIMEN [facility] Address: [address] [place] [address] Performed By: #### 5 7021-8 #### [facility] CLIA [id number] [address] [place] [address] 94247 Monocytes/100 WBC (Bld) 5.3 % Normal [facility] Comment on above: Order Comment: Speci men Type: BLOOD SPECIMEN [facility] Address: [address] [place] [address] Performed By: #### 5 7021-8 #### [facility] CLIA [id number] [address] [place] [address] 06140 Neutrophils (Bld) [#/Vol] 5.14 10*3/uL Normal 1.45-7.50 [facility] Comment on above: Order Comment: Speci men Type: BLOOD SPECIMEN [facility] Address: [address] [address] Performed By: #### 5 7021-8 #### [facility] CLIA [id number] [address] [place] [address] 49558 Neutrophils/100 WBC (Bld) 56.7 % Normal [facility] Comment on above: Order Comment: Speci men Type: BLOOD SPECIMEN [facility] Address: [address] [place] [address] Performed By: #### 5 7021-8 #### [facility] CLIA [id number] [address] [place] [address] 98554 Nucleated RBC (Bld) [#/Vol] 10*3/uL Normal <0.01 [facility] Comment on above: Order Comment: Speci men Type: BLOOD SPECIMEN [facility] Address: [address] [address] Performed By: #### 5 7021-8 #### [facility] CLIA [id number] [address] [place] [address] 78866 Nucleated RBC/100 WBC (Bld) [Ratio] 0.0 /100 WBC Normal [facility] Comment on above: Order Comment: Speci men Type: BLOOD SPECIMEN [facility] Address: [address] [address] Performed By: #### 5 7021-8 #### [facility] CLIA [id number] [address] [place] [address] 92484 Platelet mean volume (Bld) [Entitic vol] 9.4 fL Normal 9.0-12.7 [facility] Comment on above: Order Comment: Speci men Type: BLOOD SPECIMEN [facility] Address: [address] [address] Performed By: #### 5 7021-8 #### [facility] CLIA [id number] [address] [place] [address] 29239 Platelets (Bld) [#/Vol] 320 10*3/uL Normal 150-400 [facility] Comment on above: Order Comment: Speci men Type: BLOOD SPECIMEN [facility] Address: [address] [address] Performed By: #### 5 7021-8 #### [facility] CLIA [id number] [address] [place] [address] 97023 RBC (Bld) [#/Vol] 5.00 10*6/uL Normal 3.90-5.20 [facility] Comment on above: Order Comment: Speci men Type: BLOOD SPECIMEN [facility] Address: [address] [address] Performed By: #### 5 7021-8 #### [facility] CLIA [id number] [address] [place] [address] 41917 WBC (Bld) [#/Vol] 9.07 10*3/uL Normal 3.70-11.00 [facility] Comment on above: Order Comment: Speci men Type: BLOOD SPECIMEN [facility] Address: [address] [address] Performed By: #### 5 7021-8 #### [facility] CLIA [id number] [address] [place] [address] 38946 Comprehensive metabolic 2000 panelon 03-14-2022 Albumin [Mass/Vol] 4.1 g/dL Normal 3.9-4.9 [facility] Comment on above: Order Comment: Speci men Type: BLOOD SPECIMEN [facility] Address: [address] [place] [address] Performed By: #### 2 4323-8 #### [facility] CLIA [id number] [address] [place], [place] [address] ALP [Catalytic activity/Vol] 107 U/L Normal 34-123 [facility] Comment on above: Order Comment: Speci men Type: BLOOD SPECIMEN [facility] Address: [address] [address] Performed By: #### 2 4323-8 #### [facility] CLIA [id number] [address] [place] [address] 71762 ALT [Catalytic activity/Vol] 32 U/L Normal 7-38 [facility] Comment on above: Order Comment: Speci men Type: BLOOD SPECIMEN [facility] Address: [address] [address] Performed By: #### 2 4323-8 #### [facility] CLIA [id number] [address] [place] [address] 92880 Anion gap [Moles/Vol] 10 mmol/L Normal 9-18 [facility] Comment on above: Order Comment: Speci men Type: BLOOD SPECIMEN [facility] Address: [address] [place] [address] Performed By: #### 2 4323-8 #### [facility] CLIA [id number] [address] [place] [address] 10860 AST [Catalytic activity/Vol] 28 U/L Normal 13-35 [facility] Comment on above: Order Comment: Speci men Type: BLOOD SPECIMEN [facility] Address: [address] [place] [address] Performed By: #### 2 4323-8 #### [facility] CLIA [id number] [address] [place] [address] 16757 Bilirubin [Mass/Vol] mg/dL Low 0.2-1.3 [facility] Comment on above: Order Comment: Speci men Type: BLOOD SPECIMEN [facility] Address: [address] [place] [address] Performed By: #### 2 4323-8 #### [facility] CLIA [id number] [address] [place] [address] 62158 Calcium [Mass/Vol] 9.3 mg/dL Normal 8.5-10.2 [facility] Comment on above: Order Comment: Speci men Type: BLOOD SPECIMEN [facility] Address: [address] [address] Performed By: #### 2 4323-8 #### [facility] CLIA [id number] [address] [place] [address] 03296 Chloride [Moles/Vol] 104 mmol/L Normal 97-105 [facility] Comment on above: Order Comment: Speci men Type: BLOOD SPECIMEN [facility] Address: [address] [address] Performed By: #### 2 4323-8 #### [facility] CLIA [id number] [address] [place] [address] 47075 CO2 [Moles/Vol] 27 mmol/L Normal 22-30 [facility] Comment on above: Order Comment: Speci men Type: BLOOD SPECIMEN [facility] Address: [address] [address] Performed By: #### 2 4323-8 #### [facility] CLIA [id number] [address] [place] [address] 73710 Creatinine [Mass/Vol] 0.93 mg/dL Normal 0.58-0.96 [facility] Comment on above: Order Comment: Speci men Type: BLOOD SPECIMEN [facility] Address: [address] [address] Performed By: #### 2 4323-8 #### [facility] CLIA [id number] [address] [place] [address] 85113 ESTIMATED GLOMERULAR FILTRATION RATE 74 mL/min/1.73m??? Normal >=60 [facility] Comment on above: Order Comment: Speci men Type: BLOOD SPECIMEN [facility] Address: [address] [place] [address] Result Comment: Yeimy mated Glomerular Filtration Rate [...] GFR. Performed By: #### 2 4323-8 #### [facility] CLIA [id number] [address] [place] [address] 04799 Glucose [Mass/Vol] 118 mg/dL High 74-99 [facility] Comment on above: Order Comment: Speci mraion Type: BLOOD SPECIMEN [facility] Address: [address] [place] [address] Result Comment: The [place] [employer] (ADA) provides guidance for cutoff [...] Standards of Medical Care in Diabetes 2016, [place] [employer]. Diabetes Care. 2016.39(Suppl 1). Performed By: #### 2 4323-8 #### [facility] CLIA [id number] [address] [place] [address] 73071 Potassium [Moles/Vol] 3.7 mmol/L Normal 3.7-5.1 [facility] Comment on above: Order Comment: Speci men Type: BLOOD SPECIMEN [facility] Address: [address] [place] [address] Performed By: #### 2 4323-8 #### [facility] CLIA [id number] [address] [place] [address] 36044 Protein [Mass/Vol] 6.8 g/dL Normal 6.3-8.0 [facility] Comment on above: Order Comment: Speci men Type: BLOOD SPECIMEN [facility] Address: [address] [address] Performed By: #### 2 4323-8 #### [facility] CLIA [id number] [address] [place] [address] 75107 Sodium [Moles/Vol] 141 mmol/L Normal 136-144 [facility] Comment on above: Order Comment: Speci men Type: BLOOD SPECIMEN [facility] Address: [address] [address] Performed By: #### 2 4323-8 #### [facility] CLIA [id number] [address] [place] [address] 24892 Urea nitrogen [Mass/Vol] 17 mg/dL Normal 7-21 [facility] Comment on above: Order Comment: Speci men Type: BLOOD SPECIMEN [facility] Address: [address] [place] [address] Performed By: #### 2 4323-8 #### [facility] CLIA [id number] [address] [place] [address] 17100 Ferritin SerPl-mCncon 2021 Ferritin [Mass/Vol] 27.4 ng/mL Normal 14.7-205.1 [facility] Comment on above: Order Comment: Speci men Type: BLOOD SPECIMEN [facility] Address: [address] Performed By: #### 2 276-4 #### [facility] CLIA [id number] [address] [place] [address] [place] [employer] and Iron binding capaci ty panelon 03-14-2022 Iron [Mass/Vol] 56 ug/dL Normal 41-186 [facility] Comment on above: Order Comment: Speci men Type: BLOOD SPECIMEN [facility] Address: [address] Performed By: #### 5 0190-8 #### [facility] CLIA [id number] [address] [place] [address] [place] Iron binding capacity [Mass/Vol] 298 ug/dL Normal 232-386 [facility] Comment on above: Order Comment: Speci men Type: BLOOD SPECIMEN [facility] Address: [address] [place] [address] Performed By: #### 5 0190-8 #### [facility] CLIA [id number] [address] [place] [address] [place] Iron/TIBC [Molar ratio] 18.8 % Normal 15.0-57.0 [facility] Comment on above: Order Comment: Speci men Type: BLOOD SPECIMEN [facility] Address: [address] Performed By: #### 5 0190-8 #### [facility] CLIA [id number] [address] [place] [address] [place] CBC AUTO DIFFon 02-23-2022 BASO # 0.1 103/ul Normal 0.0-0.1 [facility] Comment on above: Performed By: #### C BC #### [facility] [address] [address] [address] Sarah Philippe Basophils/100 WBC (Bld) 0.6 % Normal 0.2-2.0 [facility] Comment on above: Performed By: #### C BC #### [facility] [address] [address] [address] Sarah Philippe EO # 0.2 103/ul Normal 0.0-0.7 [facility] Comment on above: Performed By: #### C BC #### [facility] [address] [place] [address] Dr. Sarah Philippe Eosinophils/100 WBC (Bld) 1.8 % Normal 0.9-7.0 [facility] Comment on above: Performed By: #### C BC #### [facility] [address] [place] [address] Dr. Sarah Philippe Erythrocyte distribution width (RBC) [Ratio] 13.9 % Normal 11.0-15.0 [facility] Comment on above: Performed By: #### C BC #### [facility] [address] [place] [address] Dr. Sarah Philippe Hematocrit (Bld) [Volume fraction] 45.3 % Normal 36.0-48.0 [facility] Comment on above: Performed By: #### C BC #### [facility] [address] [place] [address] Dr. Sarah Philippe Hemoglobin (Bld) [Mass/Vol] 14.8 g/dL Normal 12.0-16.0 [facility] Comment on above: Performed By: #### C BC #### [facility] [address] [place] [address] Dr. Sarah Philippe IG # 0.02 10e3/ul Normal 0.00-0.03 [facility] Comment on above: Performed By: #### C BC #### [facility] [address] [place] [address] Dr. Sarah Philippe IG % 0.2 % Normal 0.0-0.5 [facility] Comment on above: Performed By: #### C BC #### [facility] [address] [place] [address] Dr. Sarah Philippe LYMPH # 3.0 103/ul Normal 1.2-3.8 [facility] Comment on above: Performed By: #### C BC #### [facility] [address] [place] [address] Dr. Sarah Philippe Lymphocytes/100 WBC (Bld) 35.3 % Normal 20.5-60.0 [facility] Comment on above: Performed By: #### C BC #### [facility] [address] [place] [address] Dr. Sarah Philippe MANUAL DIFF REQ NO Normal [facility] Comment on above: Performed By: #### C BC #### [facility] [address] [place] [address] Dr. Sarah Philippe MCH (RBC) [Entitic mass] 27.5 pg Normal 26.7-34.0 [facility] Comment on above: Performed By: #### C BC #### [facility] [address] [place] [address] Dr. Sarah Philippe MCHC (RBC) [Mass/Vol] 32.7 g/dL Normal 29.9-35.2 [facility] Comment on above: Performed By: #### C BC #### [facility] [address] [place] [address] Dr. Sarah Philippe MCV (RBC) [Entitic vol] 84.0 fL Normal 81.0-99.0 [facility] Comment on above: Performed By: #### C BC #### [facility] [address] [place] [address] Dr. Sarah Philippe MONO # 0.5 103/ul Normal 0.3-0.8 [facility] Comment on above: Performed By: #### C BC #### [facility] [address] [place] [address] Dr. Sarah Philippe Monocytes/100 WBC (Bld) 6.3 % Normal 1.7-12.0 [facility] Comment on above: Performed By: #### C BC #### [facility] [address] [place] [address] Dr. Sarah Philippe NEUT # 4.7 103/ul Normal 1.4-6.5 [facility] Comment on above: Performed By: #### C BC #### [facility] [address] [place] [address] Dr. Sarah Philippe Neutrophils/100 WBC (Bld) 55.8 % Normal 43.0-75.0 [facility] Comment on above: Performed By: #### C BC #### [facility] [address] [place] [address] Dr. Sarah Philippe Platelet mean volume (Bld) [Entitic vol] 9.3 fL Critically low 9.5-13.5 [facility] Comment on above: Performed By: #### C BC #### [facility] [address] [place] [address] Dr. Sarah Philippe PLT 323 103/ul Normal 150-450 [facility] Comment on above: Performed By: #### C BC #### [facility] [address] [place] [address] Dr. Sarah Philippe RBC 5.39 106/ul Normal 4.20-5.40 [facility] Comment on above: Performed By: #### C BC #### [facility] [address] [place] [address] Dr. Sarah Philippe WBC 8.4 103/ul Normal 4.0-11.0 [facility] Comment on above: Performed By: #### C BC #### [facility] [address] [place] [address] Dr. Sarah Philippe LIPID PROFILEon 02-23-2022 CHOL-HDL RATIO NORM SEE BELOW Normal [facility] Comment on above: Result Comment: 3.3 - 4.4 LOW RISK 4.4 - 7.1 AVERAGE RISK 7.1 - 11.0 MODERATE RISK >11.0 HIGH RISK Performed By: #### C MP, TSH, T4, LIPID #### [facility] [address] [address] [address] Sarah Philippe Cholesterol [Mass/Vol] 287 mg/dL Critically high <=200 [facility] Comment on above: Performed By: #### C MP, TSH, T4, LIPID #### [facility] [address] [address] [address] Sarah Philippe Cholesterol in HDL [Mass/Vol] 40 mg/dL Normal 40-60 [facility] Comment on above: Performed By: #### C MP, TSH, T4, LIPID #### [facility] [address] [address] [address] Sarah Philippe Cholesterol in LDL [Mass/Vol] 183.4 mg/dL Normal [facility] Comment on above: Performed By: #### C MP, TSH, T4, LIPID #### [facility] [address] [address] [address] Sarah Philippe Cholesterol.total/Cho lesterol in HDL [Mass ratio] 7.2 {ratio} Normal [facility] Comment on above: Performed By: #### C MP, TSH, T4, LIPID #### [facility] [address] [address] [address] Sarah Philippe HDL NORMAL > or = 60 mg/dl - LOW CARDIOVASCULAR RISK <40 mg/dl - HIGH CARDIOVASCULAR RISK Normal [facility] Comment on above: Performed By: #### C MP, TSH, T4, LIPID #### [facility] [address] [address] [address] Sarah Philippe LDL CALC NORMAL SEE BELOW Normal [facility] Comment on above: Result Comment: <100 mg/dl OPTIMAL 100 - 129 mg/dl NEAR OR ABOVE OPTIMAL 130 - 159 mg/dl BORDERLINE HIGH 160 - 189 mg/dl HIGH >190 mg/dl VERY HIGH Performed By: #### C MP, TSH, T4, LIPID #### [facility] [address] [address] [address] Sarah Philippe Triglyceride [Mass/Vol] 318 mg/dL Critically high <=150 [facility] Comment on above: Performed By: #### C MP, TSH, T4, LIPID #### [facility] [address] [place] [address] Dr. Sarah Philippe VLDL CALC 63.6 mg/dL Normal [facility] Comment on above: Performed By: #### C MP, TSH, T4, LIPID #### [facility] [address] [place] [address] Dr. Sarah Philippe PROF 14(COMP METB)on 022 Albumin [Mass/Vol] 3.6 g/dL Normal 3.4-5.0 [facility] Comment on above: Performed By: #### C MP, TSH, T4, LIPID #### [facility] [address] [place] [address] Dr. Sarah Philippe Albumin/Globulin [Mass ratio] 0.9 {ratio} Normal [facility] Comment on above: Performed By: #### C MP, TSH, T4, LIPID #### [facility] [address] [place] [address] Dr. Sarah Philippe ALP [Catalytic activity/Vol] 102 U/L Normal 46-116 [facility] Comment on above: Performed By: #### C MP, TSH, T4, LIPID #### [facility] [address] [place] [address] Dr. Sarah Philippe ALT [Catalytic activity/Vol] 36 U/L Normal 14-59 [facility] Comment on above: Performed By: #### C MP, TSH, T4, LIPID #### [facility] [address] [place] [address] Dr. Sarah Philippe Anion gap [Moles/Vol] 10.6 mmol/L Normal [facility] Comment on above: Performed By: #### C MP, TSH, T4, LIPID #### [facility] [address] [place] [address] Dr. Sarah Philippe AST [Catalytic activity/Vol] 21 U/L Normal 15-37 [facility] Comment on above: Performed By: #### C MP, TSH, T4, LIPID #### [facility] [address] [place] [address] Dr. Sarah Philippe Bilirubin [Mass/Vol] 0.3 mg/dL Normal 0.2-1.0 [facility] Comment on above: Performed By: #### C MP, TSH, T4, LIPID #### [facility] [address] [address] [address] Sarah Philippe Calcium [Mass/Vol] 9.2 mg/dL Normal 8.5-10.1 [facility] Comment on above: Performed By: #### C MP, TSH, T4, LIPID #### [facility] [address] [address] [address] Sarah Philippe Chloride [Moles/Vol] 98 mmol/L Normal 98-107 [facility] Comment on above: Performed By: #### C MP, TSH, T4, LIPID #### [facility] [address] [place] [address] Dr. Sarah Philippe CO2 [Moles/Vol] 27.8 mmol/L Normal 21.0-32.0 [facility] Comment on above: Performed By: #### C MP, TSH, T4, LIPID #### [facility] [address] [place] [address] Dr. Sarah Philippe Creatinine [Mass/Vol] 1.00 mg/dL Normal 0.55-1.02 [facility] Comment on above: Performed By: #### C MP, TSH, T4, LIPID #### [facility] [address] [place] [address] Dr. Sarah Philippe EGFR-AF MACANESE >60 Normal >=60 [facility] Comment on above: Performed By: #### C MP, TSH, T4, LIPID #### [facility] [address] [place] [address] Dr. Sarah Philippe EGFR-NON AF MACANESE 58 mL/min/1.73m2 Critically low >=60 [facility] Comment on above: Performed By: #### C MP, TSH, T4, LIPID #### [facility] [address] [address] [address] Sarah Philippe Globulin (S) [Mass/Vol] 4.1 g/dL Normal [facility] Comment on above: Performed By: #### C MP, TSH, T4, LIPID #### [facility] [address] [place] [address] Dr. Sarah Philippe Glucose [Mass/Vol] 108 mg/dL Critically high 74-106 T [facility] Comment on above: Performed By: #### C MP, TSH, T4, LIPID #### [facility] [address] [place] [address] Dr. Sarah Philippe Potassium [Moles/Vol] 3.4 mmol/L Critically low 3.5-5.1 [facility] Comment on above: Performed By: #### C MP, TSH, T4, LIPID #### [facility] [address] [place] [address] Dr. Sarah Philippe Protein [Mass/Vol] 7.7 g/dL Normal 6.4-8.2 [facility] Comment on above: Performed By: #### C MP, TSH, T4, LIPID #### [facility] [address] [place] [address] Dr. Sarah Philippe Sodium [Moles/Vol] 133 mmol/L Critically low 136-145 [facility] Comment on above: Performed By: #### C MP, TSH, T4, LIPID #### [facility] [address] [place] [address] Dr. Sarah Philippe Urea nitrogen [Mass/Vol] 15.0 mg/dL Normal 7.0-18.0 [facility] Comment on above: Performed By: #### C MP, TSH, T4, LIPID #### [facility] [address] [place] [address] Dr. Sarah Philippe Urea nitrogen/Creatinine [Mass ratio] 15.0 mg/mg Normal [facility] Comment on above: Performed By: #### C MP, TSH, T4, LIPID #### [facility] [address] [place] [address] Dr. Sarah Philippe T4on 02-23-2022 T4 [Mass/Vol] 8.40 ug/dL Normal 4.80-13.90 [facility] Comment on above: Performed By: #### C MP, TSH, T4, LIPID #### [facility] [address] [place] [address] Dr. Sarah Philippe TSHon 02-23-2022 TSH 1.815 uIU/mL Normal 0.358-3.740 [facility] Comment on above: Performed By: #### C MP, TSH, T4, LIPID #### [facility] [address] [address] [address] Sarah Philippe Covid-19 PCR (CVDTB)on 08-06 SARS-CoV-2 (COVID-19) RNA DARÍO+probe Ql (Unsp spec) Detected Critically abnormal NOT DETECTED [facility] Comment on above: Result Comment: This test is not yet approved or cleared by the [place] FDA. When there are no FDA-approved or cleared tests available, and other criteria are met, FDA can make tests available under an emergency access mechanism called an Emergency Use Authorization (EUA). The EUA for this test is supported by the [place] of Health and Human Service's (HHS's) declaration [...] used). Performed By: #### C VDTBH #### [facility] [address] [place] [address] Dr. Sarah Philippe Basophils Auto (Bld) [#/Vol] Ordered By: Chris Borden on 07-20-2021 Basophils (Bld) [#/Vol] 0.1 10*3/uL 0.0-0.2 [facility] Basophils/100 WBC Auto (Bld) Ordered By: Chris Borden on 07-20-2021 Basophils/100 WBC (Bld) 0.6 % [facility] Blood hemoglobin measurement (mass/volume)Ordered By: Chris Borden on 07-20-2021 Hemoglobin (Bld) [Mass/Vol] 14.9 g/dL 11.8-15.4 [facility] Blood leukocytes automated c ount (number/volume)Ordered By: Chris Borden on 07-20-2021 WBC (Bld) [#/Vol] 9.6 10*3/uL 4.5-11.0 [facility] COVID-19 Positive/NegativeOr dered By: Chris Borden on 07-20-2021 SARS-CoV-2 (COVID-19) N gene DARÍO+probe Ql (Resp) Negative Negative [facility] Comment on above: Testing for SARS-CoV -2 by RT-PCR This test was developed and its performance characteristics determined by [employer] and validated at the [facility]. This test has not been FDA cleared [...] on 07-20-2021 Creatinine [Mass/Vol] 0.97 mg/dL 0.44-1.03 [facility] Eosinophils Auto (Bld) [#/Vo l]Ordered By: Chris Borden on 07-20-2021 Eosinophils (Bld) [#/Vol] 0.2 10*3/uL 0.0-0.45 [facility] Eosinophils/100 WBC Auto (Bl d)Ordered By: Chris Borden on 07-20-2021 Eosinophils/100 WBC (Bld) 2.0 % [facility] Erythrocyte distribution wid th Auto (RBC) [Ratio]Ordered By: Chris Borden on 07-20-2021 Erythrocyte distribution width (RBC) [Ratio] 14.1 % 11.9-15.3 [facility] Estimated glomerular filtrat ion rate (GFR) non- AmericanOrdered By: Chris Borden on 07-20-2021 GFR/1.73 sq M.predicted among non-blacks MDRD (S/P/Bld) [Vol rate/Area] 60 mL/Min [facility] Hematocrit Auto (Bld) [Volum e fraction]Ordered By: Chris Borden on 07-20-2021 Hematocrit (Bld) [Volume fraction] 44.0 % 34.0-46.4 [facility] Laboratory - Hematology and Cell countsOrdered By: Chris Borden on 07-20-2021 Nucleated RBC/100 WBC (Bld) [Ratio] 0.3 % 0-0.5 [facility] Lymphocytes Auto (Bld) [#/Vo l]Ordered By: Chris Borden on 07-20-2021 Lymphocytes (Bld) [#/Vol] 3.3 10*3/uL 1.00-4.8 [facility] Lymphocytes/100 WBC Auto (Bl d)Ordered By: Chris Borden on 07-20-2021 Lymphocytes/100 WBC (Bld) 34.3 % [facility] MCH Auto (RBC) [Entitic mass ]Ordered By: Chris Borden on 07-20-2021 MCH (RBC) [Entitic mass] 28.9 pg 24.7-34.3 [facility] MCHC Auto (RBC) [Mass/Vol]Or dered By: Chris Borden on 07-20-2021 MCHC (RBC) [Mass/Vol] 33.8 g/dL 32.0-35.0 [facility] MCV Auto (RBC) [Entitic vol] Ordered By: Chris Borden on 07-20-2021 MCV (RBC) [Entitic vol] 85.6 fL 80-100 [facility] Monocytes Auto (Bld) [#/Vol] Ordered By: Chris Borden on 07-20-2021 Monocytes (Bld) [#/Vol] 0.4 10*3/uL 0.0-0.8 [facility] Monocytes/100 WBC Auto (Bld) Ordered By: Chris Borden on 07-20-2021 Monocytes/100 WBC (Bld) 4.7 % [facility] Neutrophils Auto (Bld) [#/Vo l]Ordered By: Chris Borden on 07-20-2021 Neutrophils (Bld) [#/Vol] 5.6 10*3/uL 1.8-7.7 [facility] Neutrophils/100 WBC Auto (Bl d)Ordered By: Chris Borden on 07-20-2021 Neutrophils/100 WBC (Bld) 58.4 % [facility] No Panel InformationOrdered By: Chris Borden on 07-20-2021 Estimated GFR () > 60 mL/Min [facility] Comment on above: GFR estimated refere nce range: According to KDOQI guidelines, <60 ml/min/1.73m2 is sufficient to diagnose a patient with chronic kidney disease. Pharmacy Creatinine Clearance (Chem N/A [facility] Platelet mean volume Auto (B ld) [Entitic vol]Ordered By: Chris Borden on 07-20-2021 Platelet mean volume (Bld) [Entitic vol] 7.7 fL 6.3-10.7 [facility] Platelets Auto (Bld) [#/Vol] Ordered By: Chris Borden on 07-20-2021 Platelets (Bld) [#/Vol] 365 10*3/uL 150-450 [facility] RBC Auto (Bld) [#/Vol]Ordere d By: Chris Borden on 07-20-2021 RBC (Bld) [#/Vol] 5.14 10*6/uL 3.60-5.00 [facility] Serum or plasma calcium georgie urement (mass/volume)Ordered By: Chris Borden on 07-20-2021 Calcium [Mass/Vol] 9.2 mg/dL 8.2-10.2 [facility] Serum or plasma chloride [place] surement (moles/volume)Ordered By: Chris Borden on 07-20-2021 Chloride [Moles/Vol] 95 mmol/L 95-114 [facility] Serum or plasma glucose georgie urement (mass/volume)Ordered By: Chris Borden on 07-20-2021 Glucose [Mass/Vol] 99 mg/dL 70-100 [facility] Comment on above: ADA recommended refe rence range Random Glucose Reference Range is dependent on time and content of last meal. Glucose of more than 200 mg/dL in a nonstressed, ambulatory subject supports the diagnosis of Diabetes Mellitus. Serum or plasma potassium me asurement (moles/volume)Ordered By: Chris Borden on 07-20-2021 Potassium [Moles/Vol] 3.5 mmol/L 3.5-5.1 [facility] Serum or plasma sodium measu rement (moles/volume)Ordered By: Chris Borden on 07-20-2021 Sodium [Moles/Vol] 134 mmol/L 136-146 [facility] Serum or plasma total carbon dioxide measurement (moles/volume)Ordered By: Chris Borden on 07-20-2021 CO2 [Moles/Vol] 25.9 mmol/L 22.0-30.0 [facility] Serum or plasma urea nitroge n measurement (mass/volume)Ordered By: Chris Borden on 07-20-2021 Urea nitrogen [Mass/Vol] 14 mg/dL 9-23 [facility] Coding Summary.on 03-17-2020 Coding Summary. CODING DATE: 03/17/2020 FINAL [facility] STATUS: Home (Routine DC) PAYOR: [...] CphT Date Saved: 03/17/2020 04:51 pm Normal [facility] SARS-CoV-2, NAAon 03-12-2020 SARS-CoV-2 (COVID-19) RNA DARÍO+probe Ql (Resp) Not detected Invalid Interpretation Code Not Detected [facility] Comment on above: Result Comment: This nucleic acid amplification test was developed and its performance characteristics determined by [employer]. Nucleic acid amplification tests include PCR and [...] detected) result in this assay. Performed at: [facility] [address], [place] [id number] [facility] Abbe Velasquez Performed By: #### S ARS-CoV-2, DARÍO #### [facility] [address] [place] [address] Physician Orderon 03-09-2020 Physician Order [id number] #[id number]:127 Normal [facility] Coding Summary.on 11-20-2019 Coding Summary. CODING DATE: 11/20/2019 FINAL [facility] STATUS: Home (Routine DC) PAYOR: [...] [place]on Date Saved: 11/20/2019 07:41 am Normal [facility] SARS-CoV-2, NAAon 11-05-2019 SARS-CoV-2 (COVID-19) RNA DARÍO+probe Ql (Resp) Not detected Invalid Interpretation Code Not Detected [facility] Comment on above: Result Comment: This test was developed and its performance characteristics determined by [employer]. This test has not been FDA cleared [...] detected) result in this assay. Performed at: [facility] [address] [facility] [place] [id number] MD Arvind Zuniga Performed By: #### S ARS-CoV-2, DARÍO #### [facility] [address] [place] [address] Physician Orderon 10-30-2019 Physician Order [id number]# [id number]:127 Normal [facility] Vital Signs Date Time Vital Sign Value Performing Clinician Facility 05-06-2023 11:00-0500 Body height 166.37 cm Luisa Fabian Other [facility] Other 05-06-2023 11:00-0500 Body mass index (BMI) [Ratio] 43.11 kg/m2 Luisa Fabian Other [facility] Other 05-06-2023 11:00-0500 Body weight 119.34 kg Luisa Fabian Other [facility] Other 05-06-2023 11:00-0500 Diastolic blood pressure 85 mm[Hg] Luisa Corriganler Other [facility] Other 05-06-2023 11:00-0500 Respiratory rate 18 /min Luisaher Corriganler Other [facility] Other 05-06-2023 11:00-0500 SaO2% (BldA) [Mass fraction] 96 % Luisa Corriganler Other [facility] Other 05-06-2023 11:00-0500 Systolic blood pressure 119 mm[Hg] Luisa Fabian Other [facility] Other 04-29-2023 10:00-0500 Body height 166.37 cm Sylvia Chavez Other [facility] Other 04-29-2023 10:00-0500 Body mass index (BMI) [Ratio] 43.26 kg/m2 Sylvia Chavez Other [facility] Other 04-29-2023 10:00-0500 Body weight 119.75 kg Sylvia Chavez Other [facility] Other 04-29-2023 10:00-0500 Diastolic blood pressure 86 mm[Hg] Sylvia Chavez Other [facility] Other 04-29-2023 10:00-0500 SaO2% (BldA) [Mass fraction] 97 % Sylvia Chavez Other [facility] Other 04-29-2023 10:00-0500 Systolic blood pressure 122 mm[Hg] Sylvia Chavez Other [facility] Other 03-11-2023 10:00-0500 Body height 166.37 cm Luisa Missler Other [facility] Other 03-11-2023 10:00-0500 Body mass index (BMI) [Ratio] 44.5 kg/m2 Luisa Missler Other [facility] Other 03-11-2023 10:00-0500 Body weight 123.2 kg Luisa Missler Other [facility] Other 03-11-2023 10:00-0500 Diastolic blood pressure 90 mm[Hg] Luisa Missler Other [facility] Other 03-11-2023 10:00-0500 Respiratory rate 18 /min Luisa Missler Other [facility] Other 03-11-2023 10:00-0500 SaO2% (BldA) [Mass fraction] 94 % Luisa Missler Other [facility] Other 03-11-2023 10:00-0500 Systolic blood pressure 114 mm[Hg] Luisa Missler Other [facility] Other 02-27-2023 08:00-0500 Body height 167.64 cm Sylvia Chavez Other [facility] Other 02-27-2023 08:00-0500 Body mass index (BMI) [Ratio] 44.16 kg/m2 Sylvia Chavez Other [facility] Other 02-27-2023 08:00-0500 Body weight 124.1 kg Sylvia Wallcyrus Other [facility] Other 02-27-2023 08:00-0500 Diastolic blood pressure 86 mm[Hg] Sylvia Kathy Other [facility] Other 02-27-2023 08:00-0500 Respiratory rate 18 /min Sylvia Casasdee dee Other [facility] Other 02-27-2023 08:00-0500 SaO2% (BldA) [Mass fraction] 97 % Sylvia Shearafat Other [facility] Other 02-27-2023 08:00-0500 Systolic blood pressure 124 mm[Hg] Sylvia Wallcyrus Other [facility] Other 10-11-2022 11:22-0400 Body temperature 98.01 [degF] Chair [employer] Work Phone: [facility] 10-11-2022 11:22-0400 Diastolic blood pressure 76 mm[Hg] Chair Graham Work Phone: [facility] 10-11-2022 11:22-0400 Heart rate 78 /min Chair Ellen Work Phone: [facility] 10-11-2022 11:22-0400 Respiratory rate 16 /min Chair Ellen Work Phone: [facility] 10-11-2022 11:22-0400 SaO2% (BldA) [Mass fraction] 96 % Chair Graham Work Phone: [facility] 07-06-2023 11:22-0400 Systolic blood pressure 109 mm[Hg] Chair Ellen Work Phone: [facility] 07-20-2021 15:02-0400 Body height 167.64 cm DO Maury House Work Phone: [facility] 07-20-2021 15:02-0400 Body mass index (BMI) [Ratio] 42.2 kg/m2 DO Maury House Work Phone: [facility] 07-20-2021 15:02-0400 Body temperature 98.4 [degF] DO Maury House Work Phone: [facility] 07-20-2021 15:02-0400 Body weight 118.7 kg DO Maury House Work Phone: [facility] 07-20-2021 15:02-0400 Diastolic blood pressure 90 mm[Hg] DO Maury House Work Phone: [facility] 07-20-2021 15:02-0400 Heart rate 97 /min DO Maury House Work Phone: [facility] 07-20-2021 15:02-0400 Respiratory rate 18 /min DO Maury House Work Phone: [facility] 07-20-2021 15:02-0400 SaO2% (BldA) [Mass fraction] 95 % DO Maury House Work Phone: [facility] 07-20-2021 15:02-0400 Systolic blood pressure 131 mm[Hg] DO Maury House Work Phone: [facility] Encounters Encounter Date Encounter Type Care Provider Facility Start: 05-23-2023 ambulatory Sylvia brionesty:[facility] Start: 05-16-2023 End: 05-16-2023 ambulatory Luisa Fabian Other [facility] Other Start: 05-16-2023 Telephone encounter Luisa Fabian [facility] Start: 05-09-2023 End: 05-09-2023 ambulatory Sylvia Chavez Facility:[facility] Start: 05-06-2023 ([id number]/U) Weight Management f/u Luisa Fabian [facility] Start: 05-06-2023 End: 05-06-2023 ambulatory Sylvia Chavez [facility] Other Start: 04-29-2023 End: 04-29-2023 ambulatory Sylvia Chavez Other [facility] Other Start: 04-29-2023 Office outpatient vi sit 25 minutes Sylvia Chavez [facility] Start: 03-11-2023 End: 03-11-2023 ambulatory Luisa Fabian Other [facility] Other Start: 03-11-2023 Encounter by [employer] link Sylvia Chavez [facility] Start: 03-11-2023 Nutrition therapy Luisa Fabian [facility] Start: 03-11-2023 Telephone encounter Luisa Fabian [facility] Start: 03-07-2023 End: 03-07-2023 ambulatory Sylvia Chavez Other [facility] Other Start: 03-07-2023 Encounter by [employer] link Sylvia Chavez [facility] Start: 03-07-2023 Telephone encounter Sylvia islas [facility] Start: 03-04-2023 End: 03-04-2023 ambulatory Zoila Huajennifer Other [facility] Other Start: 03-04-2023 Telephone encounter Zoila Grant [facility] Start: 02-27-2023 End: 02-27-2023 ambulatory Sylvia Chavez Other [facility] Other Start: 02-27-2023 Office outpatient ne w 30 minutes Sylvia Chavez [facility] Start: 02-14-2023 ambulatory Corinna Zhang MD Work Phone: Hematology/Oncology Comment on above: Tests Start: 10-11-2022 End: 10-11-2022 ambulatory Chair 13 Ellen Work Phone: Hematology/Oncology Comment on above: Iron deficiency anem ia due to chronic blood loss (Primary Dx) Start: 10-04-2022 End: 10-04-2022 ambulatory FATOU DUTTON Facility:[facility] Start: 10-04-2022 End: 10-04-2022 ambulatory Chair 14 Ellen Work Phone: Hematology/Oncology Comment on above: Iron deficiency anem ia due to chronic blood loss (Primary Dx) Start: 09-27-2022 End: 09-28-2022 ambulatory FATOU DUTTON Facility:[facility] Start: 09-24-2022 Social Work Sharon Doe ALUMNI COORDINATOR Hematolo gy/Oncology Start: 09-17-2022 End: 09-17-2022 ambulatory MAURY WALLACE SR Facility:[facility] Start: 09-11-2022 ambulatory Corinna Zhang MD Work Phone: Hematology/Oncology Comment on above: Question regarding C BC + DIFF Start: 09-10-2022 End: 09-10-2022 ambulatory CORINNA ZHANG Facility:[facility] Start: 09-06-2022 ambulatory Corinna Zhang MD Work Phone: Hematology/Oncology Comment on above: Lab Start: 07-27-2022 End: 07-28-[address] MAURY WALLACE Facility:[facility] Start: 03-14-2022 End: 03-14-2022 ambulatory FATOU DUTTON Facility:[facility] Start: 02-23-2022 End: 02-24-[address] MAURY AWLLACE Facility:[facility] Start: 08-24-2021 End: 08-24-[address] MAURY WALLACE Facility:[facility] Start: 07-24-2021 End: 07-24-2021 Departed Referred DO Maury Wallace Work Phone: [facility] [place] Start: 07-20-2021 End: 07-20-2021 Patient encounter procedure DO Maury House Work Phone: [facility] Start: 06-16-2021 Telephone encounter Marquise Mylene deras DO Work Phone: Cardiology Comment on above: Appointment Start: 08-26-2020 End: 08-26-2020 Chart abstracting Corinna Zhang MD Work Phone: Hematology/Oncology Procedures Date Procedure Procedure Detail Performing Clinician Start: 01-17-2021 Adult depression scr eening assessment Marquise Freire DO Work Phone: Start: 12-20-2020 Colonoscopy Marquiseandrade deras DO Work Phone: Start: 09-06-2020 Lipid 1996 panel - S tam or Plasma Corinna Zhang MD Work Phone: Plan of Treatment Date Care Activity Detail Author Start: 09-27-2025 DIABETES SCREEN DIABETES SCREEN [facility] Start: 09-27-2025 Diabetes Screening Diabetes Screenin g [facility] Start: 09-06-2025 Lipid 1996 panel - S tam or Plasma Lipid Screening [facility] Start: 09-06-2025 LIPID SCREEN LIPID SCREEN [facility] Start: 03-14-2025 DIABETES SCREEN DIABETES SCREEN [facility] Start: 01-18-2024 DIABETES SCREEN DIABETES SCREEN [facility] Start: 02-14-2023 End: 05-16-2023 CBC W Auto Differential panel - Blood CBC + DIFF Lab Routine Iron deficiency anemia due to chronic blood loss Malaise and fatigue Expected: 02/14/2023, Expires: 05/16/2023 [facility] Work Phone: Comment on above: Expected: 02/14/2023 , Expires: 05/16/2023 Start: 02-14-2023 End: 05-16-2023 Cobalamin (Vitamin B12) [Mass/volume] in Serum or Plasma VITAMIN B12 BLOOD Lab Routine Iron deficiency anemia due to chronic blood loss Malaise and fatigue Expected: 02/14/2023, Expires: 05/16/2023 [facility] Work Phone: Comment on above: Expected: 02/14/2023 , Expires: 05/16/2023 Start: 02-14-2023 End: 05-16-2023 Comprehensive metabolic 2000 panel - Serum or Plasma COMP METABOLIC PANEL Lab Routine Iron deficiency anemia due to chronic blood loss Malaise and fatigue Expected: 02/14/2023, Expires: 05/16/2023 [facility] Work Phone: Comment on above: Expected: 02/14/2023 , Expires: 05/16/2023 Start: 02-14-2023 End: 05-16-2023 Ferritin [Mass/volume] in Serum or Plasma FERRITIN BLD Lab Routine Iron deficiency anemia due to chronic blood loss Malaise and fatigue Expected: 02/14/2023, Expires: 05/16/2023 [facility] Work Phone: Comment on above: Expected: 02/14/2023 , Expires: 05/16/2023 Start: 02-14-2023 End: 05-16-2023 Folate [Mass/volume] in Serum or Plasma FOLATE SERUM Lab Routine Iron deficiency anemia due to chronic blood loss Malaise and fatigue Expected: 02/14/2023, Expires: 05/16/2023 [facility] Work Phone: Comment on above: Expected: 02/14/2023 , Expires: 05/16/2023 Start: 02-14-2023 End: 05-16-2023 Iron and Iron binding capacity panel - Serum or Plasma IRON + TIBC Lab Routine Iron deficiency anemia due to chronic blood loss Malaise and fatigue Expected: 02/14/2023, Expires: 05/16/2023 [facility] Work Phone: Comment on above: Expected: 02/14/2023 , Expires: 05/16/2023 Start: 02-14-2023 End: 05-16-2023 Thyrotropin [Units/volume] in Serum or Plasma TSH BLD Lab Routine Iron deficiency anemia due to chronic blood loss Malaise and fatigue Expected: 02/14/2023, Expires: 05/16/2023 [facility] Work Phone: Comment on above: Expected: 02/14/2023 , Expires: 05/16/2023 Start: 12-07-2022 Colonoscopy COLONOSCOPY [facility] Start: 12-07-2022 COLORECTAL CANCER SCREENING COLORECTAL CANCER SCREENING [facility] Start: 12-07-2022 Covid-19 Vaccine () Covid-19 Vaccine () [facility] Start: 12-07-[address] [facility] Start: 09-12-2022 End: 11-12-2022 Comprehensive metabolic 2000 panel - Serum or Plasma COMP METABOLIC PANEL Lab Routine Iron deficiency anemia due to chronic blood loss Expected: 09/12/2022, Expires: 11/12/2022 [facility] Work Phone: Comment on above: Expected: 09/12/2022 , Expires: 11/12/2022 Start: 09-07-2022 End: 11-07-2022 CBC W Auto Differential panel - Blood CBC + DIFF Lab Routine Iron deficiency anemia due to chronic blood loss Expected: 09/07/2022, Expires: 11/07/2022 [facility] Work Phone: Comment on above: Expected: 09/07/2022 , Expires: 11/07/2022 Start: 09-07-2022 End: 09-08-2023 Ferritin [Mass/volume] in Serum or Plasma FERRITIN BLD Lab Routine Iron deficiency anemia due to chronic blood loss Expected: 09/07/2022, Expires: 09/08/2023 [facility] Work Phone: Comment on above: Expected: 09/07/2022 , Expires: 09/08/2023 Start: 09-07-2022 End: 09-08-2023 Iron and Iron binding capacity panel - Serum or Plasma IRON + TIBC Lab Routine Iron deficiency anemia due to chronic blood loss Expected: 09/07/2022, Expires: 09/08/2023 [facility] Work Phone: Comment on above: Expected: 09/07/2022 , Expires: 09/08/2023 Start: 09-07-2022 End: 11-07-2022 RETIC COUNT RETIC COUNT Lab Routine Iron deficiency anemia due to chronic blood loss Expected: 09/07/2022, Expires: 11/07/2022 [facility] Work Phone: Comment on above: Expected: 09/07/2022 , Expires: 11/07/2022 Start: 04-08-2022 DEPRESSION ASSESSMENT DEPRESSION ASS ESSMENT [facility] Start: 01-17-2022 Adult depression screening assessment DEPRESSION SCREENING [facility] Start: 12-07-2021 Influenza vaccination INFLUENZ A (Season Ended) [facility] Start: 09-01-2021 FECAL OCCULT BLOOD FECAL OCCULT BLOO D [facility] Start: 07-24-2021 OR Wound Debridement/I&D/Hydraden itis (Not Applicable) OR Wound Debridement/I&D/Hydrade nitis (Not Applicable) [facility] Start: 01-15-2021 COVID-19 VACCINE (3 - Booster for Pfizer series) COVID-19 VACCINE (3 - Booster for Pfizer series) [facility] Start: 12-07-2020 Influenza vaccination INFLUENZ A (Season Ended) [facility] Start: 10-10-2020 COVID-19 VACCINE (3 - Booster for Pfizer series) COVID-19 VACCINE (3 - Booster for Pfizer series) [facility] Start: 06-14-2019 Screening for malign ant neoplasm of colon [facility] Start: 06-14-2019 SHINGRIX VACCINE (1 of 2) SHINGRIX VACCINE (1 of 2) [facility] Start: 2014 COLOGUARD (FIT-DNA) COLOGUARD (FIT-D NA) [facility] Start: [address] COLONOGRAPHY [facility] Start: 2014 DIABETES SCREEN DIABETES SCREEN [facility] Start: 2014 LIPID SCREEN LIPID SCREEN [facility] Start: 2014 SIGMOIDOSCOPY SIGMOIDOSCOPY [facility] Start: 2009 Mammography [facility] Start: 06-14-1999 HPV TESTING HPV TESTING [facility] Start: 1990 PAP TESTING PAP TESTING [facility] Start: 1988 Urine microalbumin profile [facility] Start: 06-14-1987 HEPATITIS C SCREEN[facility] Start: 06-14-1987 HIV SCREENING HIV SCREENING [facility] Start: 1981 Adult depression screening assessment DEPRESSION SCREENING [facility] Start: 06-14-1975 PNEUMOCOCCAL (1 - PCV) PNEUMOCOCCAL (1 - PCV) [facility] Start: 06-14-1975 Pneumococcal vaccination Pneum ococcal Vaccine (1 - PCV) [facility] Start: 1969 HEPATITIS B (1 of 3 - 3-dose series) HEPATITIS B (1 of 3 - 3-dose series) [facility] Start: 1969 Hepatitis B Vaccine (1 of 3 - 3-dose series) Hepatitis B Vaccine (1 of 3 - 3-dose series) [facility] Immunizations Immunization Date Immunization Notes Care Provider Fa [facility] 08-15-2020 COVID-19 vaccine, ag e 12+ yr (PFIZER-BIONTECH - PURPLE TOP) Marquise Freire DO Work Phone: [facility] 07-18-2020 COVID-19 vaccine, ag e 12+ yr (PFIZER-BIONTECH - PURPLE TOP) Marquise Freire DO Work Phone: [facility] Payers Date Payer Category Payer Self-pay [id number] 2023 Self-pay [id number] 2017 Private Health Insurance [id number] 2014 Private Health Insurance xxx [id number] 1969 Unknown [id number] 1969 Unknown [id number] 1969 Unknown [id number] 1969 Unknown [id number] 1959 Private Health Insurance [facility] [id number] Private Health Insurance [facility] [id number] Unknown [id number] Unknown [id number] [id number] Unknown [id number] [id number] Social History Date Type Detail Facility Start: 08-26-2020 Tobacco smoking stat [facility] Unknown if ever smoked [facility] Start: 1970 Sex Assigned At Not on file [facility] Start: 06-09-2021 End: 06-19-2021 Exposure to SARS-CoV-2 (event) Not sure [facility] Start: 08-31-2020 End: 09-01-2020 Tobacco smoking status HIIS Smokes tobacco daily [facility] History of tobacco use Cigarette Smoker [facility] Start: 08-31-2020 End: 09-17-2022 Cigarettes smoked current (pack per day) - Reported 1 [facility] Start: 08-31-2020 End: 09-01-2020 Tobacco use and exposure Smokeless tobacco non-user [facility] Start: 01-17-2021 Alcohol intake Lifetime non-d jaya (finding) [facility] Start: 09-01-2020 History SDOH Alcohol Frequency 1 [facility] Start: 1970 Sex Assigned At Female [facility] Start: 07-20-2021 [facility] Start: 01-17-2021 End: 09-17-2022 Tobacco use panel [facility] Adult Depression Screening Assessment 0 [facility] Start: 09-01-2020 Gender identity Identifies as female gender (finding) [facility] Start: 09-01-2020 Sexual orientation Heterosexual (fin ding) [facility] Clinical Notes 07-05-2021 to 05-16-2023 Note [...] I10) May, Mixed hyperlipidemia (ICD-10 - E78.2) [facility] Other 01-29-2024 Evaluation note* Encounter Date Diagnosis [...] of June.Exercise counseling-she is establishing with our stripper color this week discussed in detail exercise interventions [...] Encounter for weight management (ICD-10 - Z76.89) [facility] Other 01-22-2024 Evaluation note* Encounter Date Diagnosis [...] Apr, Gasping for breath (ICD-10 - R06.89) 22 Aquilino, 2024 Anxiety (ICD-10 - F41.9) She is currently [...] obesity (BMI >= 40) (ICD-10 - E66.01) [facility] Other 12-04-2023 Evaluation note* Encounter Date Diagnosis [...] Consider [employer] if approved by her spouses [facility] insurance 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 I agree with the [...] She is open to establishing with our stripper color for guidance on physical activity at a [...] We will perform surveillance t/o our visits. Coward sleep score 19 Mar, Abnormal kidney function [...] thyroidectomy. She denies any history of cancer. [facility] Other 12-04-2023 Evaluation note* Encounter Date Diagnosis Assessment Notes Treatment Notes Treatment Clinical Notes Mar, Other [facility] sent in error, called to [facility] to cancel script. [facility] Other 11-30-2023 Evaluation note* Encounter Date Diagnosis Assessment Notes Treatment Notes Treatment Clinical Notes Feb, Nonalcoholic fatty liver disease (ICD-10 - K76.0) [facility] Other 11-30-2023 Evaluation note* Encounter Date Diagnosis Assessment Notes Treatment Notes Treatment Clinical Notes Feb, Mixed hyperlipidemia (ICD-10 - E78.2) Feb, Stage 3a chronic kidney disease (ICD-10 - N18.31) [facility] Other 11-22-2023 Evaluation note* Encounter Date Diagnosis [...] [BMI ] 40.0-44.9, adult (ICD-10 - Z68.41) [facility] Other 11-09-2023 Miscellaneous Notes* Telephone Encounter - Sylvia Amador RN - 02/14/2023 3:01 PM EST Called and spoke to patient about the changed appointment. She verbalized understanding and states that date and time will work. No further questions. Sylvia Amador RN * Telephone Encounter - Sylvia Amador RN - 02/14/2023 8:46 AM EST PSS: I have called and sent a [employer] message to this patient. Can we schedule an appointment with labs and notify patient. Thanks. Sylvia Amador RN * Telephone Encounter - Fatou Dutton PA-C - 02/14/2023 8:32 AM EST Please call and schedule patient for a follow up and labs. She has not been seen since 2020 and should have a follow up. Fatou Dutton PA-C documented [facility] encounter[facility]23 NoteHNO ID: [id number] Author: YASIR Gonzales Service: ? Author Type: Medical Secretary Type: Progress Notes Filed: 09/24/2022 4:17 PM Note Text: Patient appears on the [facility] Time Treatment List for a non-oncology treatment. No psychosocial assessment is indicated. ROLDAN Gonzales-[facility]06-19-2023 History of Present illness Narrative* YASIR Gonzales - 09/24/2022 4:16 PM EDT Patient appears on the [facility] Time Treatment List for a non-oncology treatment. No psychosocial assessment is indicated. ROLDAN Gonzales-Lisa documented in this encounterCore[facility]06-12-2023 NoteHNO ID: [id number] Author: Wendy Segura RN Service: ? Author Type: Registered Nurse Type: Progress Notes Filed: 09/17/2022 11:35 AM Note Text: CMP drawn X2 with laborer [employer] reporting that sample was hemolyzed. 2nd reporting was after pt was discharged. CMP reordered to be drawn when pt returns next week for additional iron.[facility]06-08-2023 Miscellaneous Notes* Telephone Encounter - Cherri Dickson RN - 09/13/2022 10:29 AM EDT Hi Ines, we are working on the authorization for [...] placed Fatou Dutton PA-C documented in this encounterCorey Hospital03-30-2022 Miscellaneous Notes* Telephone Encounter - Tiarra Zambrano LPN - 07/05/2021 1:15 PM EDT VM left for patient to call our office and also to check message in [employer]. Please see message noted below by Dr. [...] 2021 This note was partially generated using Cuedd voice recognition system, and there may be [...] Future appt: 07/25/2021 * Telephone Encounter - Sharon Núñez RN - 06/16/2021 2:59 PM EST [...] 06/16/2021 2:05 PM EST Patient sent a MyChart message: having heart issues on 06/16/2021. I [...] Please advise, thank you. [facility]No assessment information [facility] Work Phone: Evaluation note* Diagnosis Iron deficiency anemia due to chronic blood loss- Primary Iron deficiency anemia secondary to blood loss (chronic) documented in this encounter [facility] note* Diagnosis Iron deficiency anemia due to chronic blood loss- Primary Iron deficiency anemia secondary to blood loss (chronic) documented in this encounter [facility] note* Diagnosis Iron deficiency anemia due to chronic blood loss- Primary Iron deficiency anemia secondary to blood loss (chronic) documented in this encounter [facility] note* Diagnosis Iron deficiency anemia due to chronic blood loss- Primary Iron deficiency anemia secondary to blood loss (chronic) documented in this encounter [facility] note* Diagnosis Iron deficiency anemia due to chronic blood loss- Primary Iron deficiency anemia secondary to blood loss (chronic) Malaise and fatigue Other malaise and fatigue documented in this encounter [facility] noteNo InformationNort Wellcentive Other Hismz[facility] general Narrative - Reported* Type Description Date [...] biopsy 10/2022 Hospitalization History See surgical hx [facility] Other Hishxba general Narrative - Reported* Type Description Date [...] Surgical History Endometrial biopsy 10/2022 Surgical History [place] teeth extraction Surgical History Full teeth extraction Hospitalization History See surgical hx doc[facility] Other History general Narrative - Reported* Type [...] Surgical History Endometrial biopsy 10/2022 Surgical History [place] teeth extraction Surgical History Full teeth extraction Hospitalization History [facility] anxiety and heart palpitations 04/23/23 Hospitalization History See above [facility] Other Reason for visit NarrativeReferral Sylvia Chavez docplanner Other Summary Purpose Family History No Family History Records Found Relationship Condition Age at Onset Recorded Date/T dickson Not Specified No pertinent family history Unknown Advance Directives No Advanced Directives Records Found Advance Directive Response Recorded Date/ Time Advance Directives No July 18, 11:11am Chief Complaint and Reason for Visit [...] or prosecute any alcohol or drug abuse patient.[facility] HospitalIn the event this information is protected by the Federal Confidentiality of Alcohol and Drug Abuse Patient Records regulations: The Federal rules restrict any use of the information to criminally investigate or prosecute any alcohol or drug abuse patient.[facility] HospitalIn the event this information is protected by the Federal Confidentiality of Alcohol and Drug Abuse Patient Records regulations: The Federal rules restrict any use of the information to criminally investigate or prosecute any alcohol or drug abuse patient.[facility] HospitalIn the event this information is protected by the Federal Confidentiality of Alcohol and Drug Abuse Patient Records regulations: The Federal rules restrict any use of the information to criminally investigate or prosecute any alcohol or drug abuse patient.[facility] HospitalIn the event this information is protected by the Federal Confidentiality of Alcohol and Drug Abuse Patient Records regulations: The Federal rules restrict any use of the information to criminally investigate or prosecute any alcohol or drug abuse patient.[facility] HospitalIn the event this information is protected by the Federal Confidentiality of Alcohol and Drug Abuse Patient Records regulations: The Federal rules restrict any use of the information to criminally investigate or prosecute any alcohol or drug abuse patient.[facility] HospitalIn the event this information is protected by the Federal Confidentiality of Alcohol and Drug Abuse Patient Records regulations: The Federal rules restrict any use of the information to criminally investigate or prosecute any alcohol or drug abuse patient.[facility] HospitalIn the event this information is protected by the Federal Confidentiality of Alcohol and Drug Abuse Patient Records regulations: The Federal rules restrict any use of the information to criminally investigate or prosecute any alcohol or drug abuse patient.[facility] INFORMATION SOURCE (unrecogn ized section and content) DATE CREATED AUTHOR 10/04/2020 [facility] DATE CREATED AUTHOR AUTHOR'S ORGANIZ ATION 07/31/2022 [facility] DATE CREATED AUTHOR AUTHOR'S ORGANIZ ATION 10/12/2022 [facility] DATE CREATED AUTHOR AUTHOR'S ORGANIZ ATION 07/16/2023 [facility] Reason for Visit (unrecogniz ed section and content) Reason Comments Appointment Specialty Diagnoses / Procedures Referred By Contac t Referred To Contact Diagnoses Iron deficiency anemia due to chronic blood loss Procedures IRON SUCROSE INJECTION PER 1 MG Fatou Dutton PA-C [address] [address] Kavon Treat Graham [address] [address] Referral ID Status Reason Start Date Expiration Date V isits Requested Visits Authorized [id number] Authorized 09/12/2022 04/07/2023 1 99 Care Teams (unrecognized sec tion and content) Lead Ruby On Rails Developer Relationship Specialty Start Date End Date Himanshu Maury Lordmerced [place] PCP - General Family Practice 02/16/15 Team Status: Inactive Member Role Status Dates Maury Wallace DO Primary Care Provider Active Chris Borden DO Attending Provider Active Team Status: Active Member Role Status Dates Maury Wallace DO Primary Care Provider Active Lead [employer] On Rails Developer Relationship Specialty Start Date End Date Himanshu Maury [place]merced [place] PCP - General Family Medicine 02/16/15 Lead Ruby On Rails Developer Relationship Specialty Start Date End Date Himanshu Maury [place]mer[place] PCP - General Family Medicine 02/16/15 Lead Ruby On Rails Developer Relationship Specialty Start Date End Date Himanshu Maury [place]mer[place] PCP - General Family Medicine 02/16/15 Lead Ruby On Rails Developer Relationship Specialty Start Date End Date Himanshu Maury Lordmerced [place] PCP - General Family Medicine 02/16/15 Lead Ruby On Rails Developer Relationship Specialty Start Date End Date Himanshu Maury Lordmerced [place] DO PCP - General Family Medicine 02/16/15 [...] BE BASED ON THE PRIMARY CLINICAL RECORDS. [facility] [employer] [facility]. provides no warranty or guarantee of the accuracy or completeness of information in this document.
== END 2023-07-30 19:50 | disposition home or self-care (01) ==
LOC: SLEEP 19:50
PROVIDERS: PCP Nurse Practitioner Family; Visit Provider Nurse Practitioner Family
DX: G47.33 Obstructive sleep apnea (adult) (pediatric) (principal)